=== PATIENT | male | born 1980 | race Two or more races ===

== ENCOUNTER 2019-02-15 10:43 | Inpatient (IN) | payer BC, OTHER ==
[~2019-02-15] VITALS: Ht 193 cm; Wt 159.0 kg
[2019-02-15] MEDS ORDERED: SODIUM CHLORIDE 0.9% 1,000 ML IV ONE ×2 (11:02→12:45)
[2019-02-15] MEDS ORDERED: ONDANSETRON HCL 4 MG/2 ML VIAL IV ONE (11:15)
[2019-02-15] MEDS ORDERED: InsuLIN REG 1unit/0.01ml Soln (100units/ml) IV ONE (11:15)
[2019-02-15 11:42] LABS: Mean Corpuscular Hemoglobin 30.7 pg (28.0-32.0); Red Cell Distribution Width 12.8 % (11.8-14.3)
[2019-02-15 11:44] LABS: Hematocrit 53.5 % (41.0-53.0); Hemoglobin 17.4 g/dL (13.5-17.5); Mean Corpuscular Hgb Conc. 32.6 g/dL (32.0-36.0); Mean Corpuscular Volume 94.3 fL (80.0-100.0); Platelet Count (auto) 395 10^3/uL (140-450); Red Blood Cells 5.68 10^6/uL (4.5-5.90)
[2019-02-15 11:56] LABS: INR 0.95 (0.9-1.15); Partial Thromboplastin Time 30.4 sec (23.78-33.04); Prothrombin Time 10.2 sec (9.27-12.13)
[2019-02-15 12:10] LABS: Potassium 4.6 mmol/L (3.5-5.1)
[2019-02-15 12:12] LABS: Basophils % (manual) 0 (0.0-2.0); Blast Cells 0; Eosinophils % (manual) 0 (0-7); Metamyelocytes % 0; Myelocytes % 0; Promyelocytes % 0; Reactive Lymphocytes 0
[2019-02-15 12:29] LABS: Albumin 4.3 g/dL (3.4-5.0); BUN/Creatinine Ratio 8.7; Bilirubin, Total 0.4 mg/dL (0.2-1.0); Magnesium 2.6 mg/dL (1.6-2.6); Total Protein 8.8 g/dL (6.4-8.2)
[2019-02-15] MEDS ORDERED: InsuLIN R (HUMAN) 100 UNITS in SODIUM CHL 0.9% 99 ML IV SCH (12:40)
[2019-02-15] MEDS ORDERED: DEXTROSE (50%) 50ML SYRG IV PRN ×2 (12:45→14:15)
[2019-02-15 12:52] LABS: Band Neutrophils % (manual) 2; Lymphocytes % (manual) 6 (10.0-50.0); Monocytes % (manual) 3 (0-12)
[2019-02-15] MEDS ORDERED: ACCU-CHEK COMFORT CURVE STRIP VI SCH (13:30)
[2019-02-15] MEDS ORDERED: SODIUM BICARBONATE 8.4 % INJ 50ML VIAL IV ONE (13:30)
[2019-02-15] MEDS: SODIUM CHLORIDE 0.9% 1,000 ML IV SCH ×3 (14:02→23:39)
[2019-02-15 14:13] LABS: Urine Bacteria NONE SEEN /hpf (None Seen); Urine Blood 2+ /uL (Negative); Urine WBC 1 /hpf (0 - 3)
[2019-02-15] MEDS ORDERED: MORPHINE SULF INJ 2 MG/ML SYRINGE 1ML IV PRN (14:15)
[2019-02-15] MEDS ORDERED: NITROGLYCERIN 0.4 MG SL TAB SL PRN (14:15)
[2019-02-15] MEDS ORDERED: TEMAZEPAM 15 MG CAP PO PRN (14:15)
[2019-02-15] MEDS ORDERED: LORazepam 0.5 MG TAB PO PRN (14:15)
[2019-02-15] MEDS: InsuLIN R (HUMAN) 100 UNITS in SODIUM CHL 0.9% 99 ML IV SCH ×2 (14:21→22:20)
[2019-02-15 15:06] LABS: Amylase 46 U/L (25-115); Lipase 654 U/L (73-393)
[2019-02-15] MEDS: ACCU-CHEK COMFORT CURVE STRIP VI SCH ×7 (16:01→23:40)
[2019-02-15] MEDS ORDERED: SODIUM CHLORIDE 0.9% 1,000 ML IV SCH (18:02)
[2019-02-15 18:44] LABS: Albumin 3.4 g/dL (3.4-5.0); BUN/Creatinine Ratio 8.5; Calcium 7.3 mg/dL (8.5-10.1); Potassium 4.4 mmol/L (3.5-5.1)
[2019-02-15 18:47] LABS: Bilirubin, Total 0.4 mg/dL (0.2-1.0); Total Protein 7.2 g/dL (6.4-8.2)
[2019-02-15 23:02] LABS: BUN/Creatinine Ratio 8.9; Calcium 7.3 mg/dL (8.5-10.1); Potassium 4.1 mmol/L (3.5-5.1)
[2019-02-16] VITALS (23 sets, daily range): BP systolic 121–167; BP diastolic 61–97
[2019-02-16] MEDS ORDERED: SODIUM BICARBONATE 8.4 % INJ 50ML VIAL IV ONE ×3 (00:15→04:15)
[2019-02-16] MEDS: PROMETHAZINE HCL 25 MG/ML 1ML IV PRN (00:25)
[2019-02-16] MEDS ORDERED: SODIUM BICARBONATE 50ML VIAL 50 ML in SOD CHL 0.45% 1,000 ML IV SCH (01:00)
[2019-02-16] MEDS: ACCU-CHEK COMFORT CURVE STRIP VI SCH ×14 (01:46→22:22)
[2019-02-16 02:30] LABS: BUN/Creatinine Ratio 7.5; Calcium 7.2 mg/dL (8.5-10.1); Potassium 3.7 mmol/L (3.5-5.1)
[2019-02-16] MEDS: SODIUM CHLORIDE 0.9% 1,000 ML IV SCH ×2 (02:55→09:22)
[2019-02-16] MEDS ORDERED: SODIUM BICARBONATE 8.4% INJ 50ML SYRINGE ONE (04:24)
[2019-02-16] MEDS: SODIUM BICARBONATE 50ML VIAL 100 ML in SOD CHL 0.45% 1,000 ML IV SCH (04:41)
[2019-02-16 08:29] LABS: Basophils # (auto) 0.1 uL; Basophils % (auto) 0.9 % (0.0-2.0); Eosinophils # (auto) 0 uL; Eosinophils % (auto) 0.3 % (0.0-7.0); Hematocrit 45.4 % (41.0-53.0); Hemoglobin 14.9 g/dL (13.5-17.5); Lymphocytes # (auto) 0.7 uL; Lymphocytes % (auto) 6.7 % (10.0-50.0); Mean Corpuscular Hemoglobin 30.9 pg (28.0-32.0); Mean Corpuscular Hgb Conc. 32.9 g/dL (32.0-36.0); Mean Corpuscular Volume 93.9 fL (80.0-100.0); Monocytes # (auto) 0.7 uL; Monocytes % (auto) 6.6 % (0.0-12.0); Neutrophils # (auto) 9.2 uL; Neutrophils % (auto) 85.5 % (37.0-80.0); Platelet Count (auto) 265 10^3/uL (140-450); Red Blood Cells 4.84 10^6/uL (4.5-5.90); Red Cell Distribution Width 12.7 % (11.8-14.3); White Blood Cell 10.8 10^3/uL (4.4-10.8)
[2019-02-16 08:52] LABS: Albumin 3.2 g/dL (3.4-5.0); BUN/Creatinine Ratio 8.6; Calcium 7.4 mg/dL (8.5-10.1); Potassium 3.5 mmol/L (3.5-5.1)
[2019-02-16 08:55] LABS: Bilirubin, Total 0.4 mg/dL (0.2-1.0); Total Protein 6.8 g/dL (6.4-8.2)
[2019-02-16] MEDS: PANTOPRAZOLE 40 MG TAB PO SCH (09:42)
[2019-02-16] MEDS: SODIUM BICARBONATE 50ML VIAL 100 ML in SODIUM CHLORIDE 0.9% 1,000 ML IV SCH ×2 (10:55→17:35)
[2019-02-16] MEDS: InsuLIN R (HUMAN) 100 UNITS in SODIUM CHL 0.9% 99 ML IV SCH (16:08)
[2019-02-17] VITALS (24 sets, daily range): BP systolic 134–173; BP diastolic 63–100
[2019-02-17] MEDS: SODIUM BICARBONATE 50ML VIAL 100 ML in SODIUM CHLORIDE 0.9% 1,000 ML IV SCH ×4 (00:55→23:57)
[2019-02-17] MEDS: PROMETHAZINE HCL 25 MG/ML 1ML IV PRN (01:04)
[2019-02-17] MEDS: ACCU-CHEK COMFORT CURVE STRIP VI SCH ×17 (01:42→23:58)
[2019-02-17 04:46] LABS: Albumin 3.2 g/dL (3.4-5.0); Calcium 7.8 mg/dL (8.5-10.1); Potassium 3.1 mmol/L (3.5-5.1)
[2019-02-17 04:51] LABS: Bilirubin, Total 0.4 mg/dL (0.2-1.0); Total Protein 6.6 g/dL (6.4-8.2)
[2019-02-17] MEDS ORDERED: InsuLIN R (HUMAN) 100 UNITS in SODIUM CHL 0.9% 99 ML IV SCH ×2 (05:02→19:33)
[2019-02-17] MEDS: InsuLIN R (HUMAN) 100 UNITS in SODIUM CHL 0.9% 99 ML IV SCH ×2 (06:23→16:34)
[2019-02-17] MEDS ORDERED: SODIUM BICARBONATE 8.4 % INJ 50ML VIAL IV ONE (06:30)
[2019-02-17] MEDS: SOD CHL 0.45% WITH 20MEQ KCL 1,000 ML IV SCH ×2 (07:38→16:04)
[2019-02-17] MEDS: PANTOPRAZOLE 40 MG TAB PO SCH (09:46)
[2019-02-17] MEDS: traMADol HCL 50 MG TAB PO PRN (15:06)
[2019-02-17 22:14] LABS: Albumin 3.2 g/dL (3.4-5.0)
[2019-02-17 22:18] LABS: Bilirubin, Total 0.5 mg/dL (0.2-1.0); Total Protein 6.7 g/dL (6.4-8.2)
[2019-02-17 22:22] LABS: Potassium 2.9 mmol/L (3.5-5.1)
[2019-02-17] MEDS ORDERED: POTASSIUM CHL 20 Meq TABLET PO ONE ×2 (22:30→23:51)
[2019-02-17 23:02] LABS: BUN/Creatinine Ratio 5.7
[2019-02-18] VITALS (24 sets, daily range): BP systolic 109–164; BP diastolic 50–112
[2019-02-18] MEDS: ACCU-CHEK COMFORT CURVE STRIP VI SCH ×10 (01:33→23:59)
[2019-02-18] MEDS: SOD CHL 0.45% WITH 20MEQ KCL 1,000 ML IV SCH ×3 (03:00→17:38)
[2019-02-18] MEDS ORDERED: InsuLIN REG 1unit/0.01ml Soln (100units/ml) ONE (03:59)
[2019-02-18 04:26] LABS: Calcium 7.5 mg/dL (8.5-10.1)
[2019-02-18] MEDS: traMADol HCL 50 MG TAB PO PRN (04:30)
[2019-02-18 04:33] LABS: Potassium 2.6 mmol/L (3.5-5.1)
[2019-02-18] MEDS ORDERED: POTASSIUM CHL 10% (20 MEQ/15ML) 15ml ORAL SOLN PO ONE (05:30)
[2019-02-18] MEDS: SODIUM BICARBONATE 50ML VIAL 100 ML in SODIUM CHLORIDE 0.9% 1,000 ML IV SCH (06:14)
[2019-02-18] MEDS: PANTOPRAZOLE 40 MG TAB PO SCH (09:11)
[2019-02-18] MEDS ORDERED: DEXTROSE (50%) 50ML SYRG IV PRN (10:15)
[2019-02-18] MEDS: InsuLIN REG 1unit/0.01ml Soln (100units/ml) SC SCH ×3 (12:00→20:08)
[2019-02-18 12:56] LABS: Calcium 8.2 mg/dL (8.5-10.1); Potassium 3.2 mmol/L (3.5-5.1)
[2019-02-18 12:58] LABS: BUN/Creatinine Ratio 3.9
[2019-02-18] MEDS ORDERED: POTASSIUM CHL 20 Meq TABLET PO ONE (13:30)
[2019-02-19] MEDS: InsuLIN REG 1unit/0.01ml Soln (100units/ml) SC SCH ×4 (00:05→12:00)
[2019-02-19] MEDS: ACCU-CHEK COMFORT CURVE STRIP VI SCH ×3 (04:08→12:00)
[2019-02-19] MEDS: SOD CHL 0.45% WITH 20MEQ KCL 1,000 ML IV SCH ×2 (04:16→12:15)
[2019-02-19 05:18] VITALS: BP 124/57
[2019-02-19 09:08] VITALS: BP 130/73
[2019-02-19] MEDS: PANTOPRAZOLE 40 MG TAB PO SCH (09:40)
[2019-02-19 13:00] VITALS: BP 132/67
== END 2019-02-19 15:11 | disposition home or self-care (01) | DRG 638 ==
LOC: ER 10:43 → EDBD 10:43 → OVERFLOW 14:05 → ICU WEST 02-16 04:50 → WEST WING 02-18 20:35
PROVIDERS: ADMIT Internal Medicine; ATTEND Family Medicine
DX: E11.10 Type 2 diabetes mellitus with ketoacidosis without coma (principal); E87.1 Hypo-osmolality and hyponatremia; Z68.41 Body mass index [BMI] 40.0-44.9, adult; E86.0 Dehydration; Z79.899 Other long term (current) drug therapy; E66.01 Morbid (severe) obesity due to excess calories; E87.6 Hypokalemia; Z82.49 Family history of ischemic heart disease and other diseases of the circulatory system; Z83.3 Family history of diabetes mellitus; Z91.19 Patient's noncompliance with other medical treatment and regimen; Z90.49 Acquired absence of other specified parts of digestive tract
CPT/HCPCS: 36415; 36600; 71045; 74176; 80048; 80053; 80320; 81001; 82010; 82150; 82805; 82962; 83036; 83690; 83735; 85007; 85025; 85027; 85610; 85730; 87081; 93005; 94761; 96361; 96365; 96375; 99291; A6257; G0378; J1815; J2405

== ENCOUNTER 2019-02-25 18:36 | Emergency (ER) | payer BC ==
[~2019-02-25] VITALS: Ht 188 cm; Wt 161.9 kg
[2019-02-25 19:06] VITALS: BP 143/93
== END 2019-02-25 23:16 | disposition home or self-care (01) ==
LOC: ER 18:40
DX: J03.90 Acute tonsillitis, unspecified (principal); E11.65 Type 2 diabetes mellitus with hyperglycemia; Z79.4 Long term (current) use of insulin; Z90.89 Acquired absence of other organs
CPT/HCPCS: 70490; 82962

== ENCOUNTER 2022-09-02 20:14 | Inpatient (IN) | payer BC ==
[~2022-09-02] VITALS: Ht 188 cm; Wt 114.6 kg
[2022-09-03] MEDS ORDERED: SODIUM CHLORIDE 0.9% 1,000 ML IV ONE (00:30)
[2022-09-03] MEDS ORDERED: ONDANSETRON HCL 4 MG/2 ML VIAL IV ONE (00:30)
[2022-09-03 01:07] LABS: Basophils # (auto) 0.1 10 ^3/uL (0-0.2); Monocytes # (auto) 0.6 10 ^3/uL (0-1.3); Neutrophils # (auto) 8.8 10 ^3/uL (1.6-8.6); Red Blood Cells 5.01 10^6/uL (4.5-5.90); Red Cell Distribution Width 12.2 % (11.8-14.3)
[2022-09-03 01:09] LABS: Basophils % (auto) 0.5 % (0.0-2.0); Eosinophils # (auto) 0.2 10 ^3/uL (0-0.8); Eosinophils % (auto) 2.1 % (0.0-7.0); Hematocrit 46.6 % (41.0-53.0); Hemoglobin 15.9 g/dL (13.5-17.5); Lymphocytes % (auto) 9.1 % (10.0-50.0); Mean Corpuscular Hemoglobin 31.7 pg (28.0-32.0); Mean Corpuscular Hgb Conc. 34.2 g/dL (32.0-36.0); Mean Corpuscular Volume 92.9 fL (80.0-100.0); Monocytes % (auto) 5.7 % (0.0-12.0); Neutrophils % (auto) 82.6 % (37.0-80.0); Nucleated Red Blood Cells % 0.1 %; White Blood Cell 10.7 10^3/uL (4.4-10.8)
[2022-09-03 01:26] LABS: Albumin 3.4 g/dL (3.4-5.0); BUN/Creatinine Ratio 13.9; Potassium 4.3 mmol/L (3.5-5.1)
[2022-09-03 01:29] LABS: Bilirubin, Total 0.5 mg/dL (0.2-1.0); Total Protein 7.9 g/dL (6.4-8.2)
[2022-09-03] MEDS ORDERED: ACETAMINOPHEN 325 MG TAB PO ONE ×2 (01:30→02:00)
[2022-09-03] MEDS ORDERED: InsuLIN REG 1unit/0.01ml Soln (100units/ml) IV ONE ×2 (01:45→02:00)
[2022-09-03] MEDS ORDERED: SODIUM CHLORIDE 0.9% 500 ML IV ONE (01:45)
[2022-09-03] MEDS ORDERED: SODIUM BICARBONATE 8.4 % INJ 50ML VIAL IV ONE ×2 (01:45→02:00)
[2022-09-03] MEDS ORDERED: DEXTROSE (50%) 50ML SYRG IV PRN (03:15)
[2022-09-03] MEDS ORDERED: DOCUSATE SOD 100 MG CAP PO PRN (03:15)
[2022-09-03] MEDS ORDERED: ONDANSETRON HCL 4 MG/2 ML VIAL IV PRN (03:15)
[2022-09-03] MEDS ORDERED: MORPHINE SULFATE INJ 2 MG/ml SYRG IV PRN (03:45)
[2022-09-03] MEDS ORDERED: NITROGLYCERIN 0.4 MG SL TAB SL PRN (03:45)
[2022-09-03 05:19] LABS: Basophils # (auto) 0.1 10 ^3/uL (0-0.2); Basophils % (auto) 0.6 % (0.0-2.0); Eosinophils # (auto) 0.1 10 ^3/uL (0-0.8); Eosinophils % (auto) 1.2 % (0.0-7.0); Hematocrit 40.5 % (41.0-53.0); Hemoglobin 13.2 g/dL (13.5-17.5); Lymphocytes # (auto) 0.9 10 ^3/uL (0.4-5.4); Mean Corpuscular Hemoglobin 29.9 pg (28.0-32.0); Mean Corpuscular Hgb Conc. 32.5 g/dL (32.0-36.0); Monocytes % (auto) 8.5 % (0.0-12.0); Neutrophils # (auto) 9.5 10 ^3/uL (1.6-8.6); Neutrophils % (auto) 81.7 % (37.0-80.0); Red Cell Distribution Width 11.9 % (11.8-14.3); White Blood Cell 11.7 10^3/uL (4.4-10.8)
[2022-09-03 05:31] LABS: Potassium 3.5 mmol/L (3.5-5.1)
[2022-09-03 05:36] LABS: Albumin 2.8 g/dL (3.4-5.0); BUN/Creatinine Ratio 13.7; Calcium 8.1 mg/dL (8.5-10.1)
[2022-09-03 05:46] LABS: Bilirubin, Total 0.4 mg/dL (0.2-1.0)
[2022-09-03] MEDS: ACCU-CHEK COMFORT CURVE STRIP VI SCH ×5 (05:50→20:17)
[2022-09-03] MEDS: InsuLIN REG 1unit/0.01ml Soln (100units/ml) SC SCH ×5 (05:58→20:18)
[2022-09-03] MEDS: SODIUM CHLORIDE 0.9% 1,000 ML IV SCH ×2 (05:59→22:33)
[2022-09-03] MEDS ORDERED: SODIUM BICARBONATE 50ML VIAL 50 ML in SOD CHL 0.45% 1,000 ML IV ONE (07:30)
[2022-09-03] MEDS: HEPARIN SODIUM (PORCINE) 5000 UNITS/ML 1ML VIAL SC SCH ×2 (10:26→22:03)
[2022-09-03] MEDS: ACETAMINOPHEN 325 MG TAB PO PRN ×2 (14:37→20:49)
[2022-09-03] MEDS: HYDROcodone-ACET 5/325MG TAB PO PRN (23:45)
[2022-09-04] MEDS: InsuLIN REG 1unit/0.01ml Soln (100units/ml) SC SCH ×7 (04:00→22:57)
[2022-09-04] MEDS: ACCU-CHEK COMFORT CURVE STRIP VI SCH ×7 (04:00→23:05)
[2022-09-04 05:00] VITALS: BP 123/65
[2022-09-04 06:33] LABS: Basophils # (auto) 0 10 ^3/uL (0-0.2); Basophils % (auto) 0.3 % (0.0-2.0); Eosinophils # (auto) 0.3 10 ^3/uL (0-0.8); Eosinophils % (auto) 2.9 % (0.0-7.0); Hematocrit 38.5 % (41.0-53.0); Lymphocytes # (auto) 0.8 10 ^3/uL (0.4-5.4); Lymphocytes % (auto) 7.7 % (10.0-50.0); Mean Corpuscular Hemoglobin 30.8 pg (28.0-32.0); Mean Corpuscular Hgb Conc. 33.8 g/dL (32.0-36.0); Mean Corpuscular Volume 90.9 fL (80.0-100.0); Monocytes # (auto) 1.2 10 ^3/uL (0-1.3); Monocytes % (auto) 11.8 % (0.0-12.0); Neutrophils # (auto) 7.9 10 ^3/uL (1.6-8.6); Neutrophils % (auto) 77.3 % (37.0-80.0); Nucleated Red Blood Cells % 0.1 %; Red Blood Cells 4.24 10^6/uL (4.5-5.90); Red Cell Distribution Width 12.3 % (11.8-14.3); White Blood Cell 10.2 10^3/uL (4.4-10.8)
[2022-09-04 06:48] LABS: Calcium 8.2 mg/dL (8.5-10.1); Potassium 3.5 mmol/L (3.5-5.1)
[2022-09-04 06:52] LABS: Albumin 2.6 g/dL (3.4-5.0); BUN/Creatinine Ratio 9.6
[2022-09-04 06:55] LABS: Bilirubin, Total 0.3 mg/dL (0.2-1.0); Total Protein 6.1 g/dL (6.4-8.2)
[2022-09-04] MEDS: HEPARIN SODIUM (PORCINE) 5000 UNITS/ML 1ML VIAL SC SCH ×2 (09:22→22:49)
[2022-09-04] MEDS: HYDROcodone-ACET 5/325MG TAB PO PRN ×3 (10:10→21:32)
[2022-09-04 13:00] VITALS: BP 125/73
[2022-09-04] MEDS: SODIUM CHLORIDE 0.9% 1,000 ML IV SCH (13:14)
[2022-09-04 17:00] VITALS: BP 121/76
[2022-09-04 22:00] VITALS: BP 118/72
[2022-09-05] MEDS: InsuLIN REG 1unit/0.01ml Soln (100units/ml) SC SCH ×3 (04:44→12:34)
[2022-09-05] MEDS: ACCU-CHEK COMFORT CURVE STRIP VI SCH ×3 (04:45→12:00)
[2022-09-05 05:00] VITALS: BP 117/79
[2022-09-05] MEDS: SODIUM CHLORIDE 0.9% 1,000 ML IV SCH (05:15)
[2022-09-05 09:00] VITALS: BP 121/71
[2022-09-05] MEDS: HEPARIN SODIUM (PORCINE) 5000 UNITS/ML 1ML VIAL SC SCH (10:27)
[2022-09-05] MEDS ORDERED: INSLANTI SC (11:11)
[2022-09-05 12:31] VITALS: BP 121/69
[2022-09-05] MEDS: ACETAMINOPHEN 325 MG TAB PO PRN (13:30)
== END 2022-09-05 15:50 | disposition home or self-care (01) | DRG 638 ==
LOC: ER 20:14 → TELE 09-03 03:36 → TELE-EAST 09-03 22:27
PROVIDERS: ADMIT Nurse Practitioner Family; ATTEND Family Medicine
DX: E11.10 Type 2 diabetes mellitus with ketoacidosis without coma (principal); E87.1 Hypo-osmolality and hyponatremia; E66.01 Morbid (severe) obesity due to excess calories; D75.839 Thrombocytosis, unspecified; Z20.822 Contact with and (suspected) exposure to COVID-19; E86.0 Dehydration; Z90.49 Acquired absence of other specified parts of digestive tract; Z79.4 Long term (current) use of insulin; Z91.14 Patient's other noncompliance with medication regimen; Z68.32 Body mass index [BMI] 32.0-32.9, adult
CPT/HCPCS: 36415; 36600; 71045; 80053; 82010; 82805; 82962; 83036; 83605; 83880; 84484; 85025; 87426; 87804; 96361; 96372; 96374; 96375; G0378; J1815; J2405

== ENCOUNTER 2022-09-08 15:49 | Inpatient (IN) | payer BC ==
[~2022-09-08] VITALS: Ht 188 cm; Wt 109.0 kg
[2022-09-08] MEDS: SODIUM CHLORIDE 0.9% 1,000 ML IV SCH ×3 (02:36→20:03)
[~2022-09-08 15:49] MED LIST: INSLANTI SC
[2022-09-08] MEDS ORDERED: SODIUM CHLORIDE 0.9% 1,000 ML IV ONE ×2 (16:00→19:00)
[2022-09-08] MEDS ORDERED: SODIUM BICARBONATE 8.4 % INJ 50ML VIAL IV ONE (16:30)
[2022-09-08 16:33] LABS: Basophils # (auto) 0 10 ^3/uL (0-0.2); Basophils % (auto) 0.2 % (0.0-2.0); Eosinophils # (auto) 0.2 10 ^3/uL (0-0.8); Hematocrit 43.4 % (41.0-53.0); Hemoglobin 15.3 g/dL (13.5-17.5); Lymphocytes # (auto) 1.2 10 ^3/uL (0.4-5.4); Lymphocytes % (auto) 7.2 % (10.0-50.0); Mean Corpuscular Hemoglobin 30.8 pg (28.0-32.0); Mean Corpuscular Hgb Conc. 35.2 g/dL (32.0-36.0); Mean Corpuscular Volume 87.4 fL (80.0-100.0); Monocytes # (auto) 1.9 10 ^3/uL (0-1.3); Monocytes % (auto) 11.4 % (0.0-12.0); Neutrophils # (auto) 13.1 10 ^3/uL (1.6-8.6); Neutrophils % (auto) 80.2 % (37.0-80.0); Red Blood Cells 4.97 10^6/uL (4.5-5.90); Red Cell Distribution Width 12.7 % (11.8-14.3); White Blood Cell 16.4 10^3/uL (4.4-10.8)
[2022-09-08 16:46] LABS: Albumin 2.3 g/dL (3.4-5.0); Calcium 8.8 mg/dL (8.5-10.1); Magnesium 1.9 mg/dL (1.6-2.6)
[2022-09-08 16:54] LABS: BUN/Creatinine Ratio 13.8; Bilirubin, Total 0.6 mg/dL (0.2-1.0); Phosphorus 1.4 mg/dL (2.5-4.90); Total Protein 6.6 g/dL (6.4-8.2)
[2022-09-08 17:01] LABS: Potassium 2.9 mmol/L (3.5-5.1)
[2022-09-08] MEDS ORDERED: DEXTROSE (50%) 50ML SYRG IV PRN ×2 (17:15→19:00)
[2022-09-08] MEDS ORDERED: INSULIN LANTUS (GLARGINE) 1 /0.01ml (100units/ml) SC ONE (17:15)
[2022-09-08] MEDS: ACCU-CHEK COMFORT CURVE STRIP VI SCH ×4 (18:37→22:36)
[2022-09-08] MEDS ORDERED: NITROGLYCERIN 0.4 MG SL TAB SL PRN (19:00)
[2022-09-08] MEDS ORDERED: MORPHINE SULFATE INJ 2 MG/ml SYRG IV PRN ×2 (19:00)
[2022-09-08] MEDS ORDERED: ONDANSETRON HCL 4 MG/2 ML VIAL IV PRN (19:00)
[2022-09-08] MEDS ORDERED: POTASSIUM PHOSPHATE 44 MEQ in D5W 5% 250 ML IV ONE (19:00)
[2022-09-08] MEDS: InsuLIN R (HUMAN) 100 UNITS in SODIUM CHL 0.9% 99 ML IV SCH (20:05)
[2022-09-08 20:26] LABS: Urine Bacteria NONE SEEN /hpf (None Seen); Urine Blood 1+ /uL (Negative); Urine Specific Gravity 1.018 (1.001-1.035); Urine WBC 1 /hpf (0 - 3)
[2022-09-08] MEDS ORDERED: SODIUM CHLORIDE 0.9% 1,000 ML IV SCH (21:15)
[2022-09-08 23:35] VITALS: BP 113/65
[2022-09-09] VITALS (24 sets, daily range): BP systolic 107–147; BP diastolic 62–88
[2022-09-09] MEDS ORDERED: ACCU-CHEK COMFORT CURVE STRIP VI SCH
[2022-09-09] MEDS ORDERED: InsuLIN REG 1unit/0.01ml Soln (100units/ml) SC SCH
[2022-09-09] MEDS: ACCU-CHEK COMFORT CURVE STRIP VI SCH ×17 (00:21→22:11)
[2022-09-09] MEDS: InsuLIN R (HUMAN) 100 UNITS in SODIUM CHL 0.9% 99 ML IV SCH ×4 (00:24→06:24)
[2022-09-09] MEDS ORDERED: METF-370 PO (02:10)
[2022-09-09] MEDS ORDERED: ENAL2.5T7 PO (02:11)
[2022-09-09] MEDS: POTASSIUM CHL 20MEQ/100ML 100 ML IV SCH ×2 (02:30→05:30)
[2022-09-09] MEDS: POTASSIUM CHL 20MEQ/100ML 200 ML IV PRN ×2 (02:51→05:46)
[2022-09-09] MEDS ORDERED: DEXTROSE (50%) 50ML SYRG IV PRN ×2 (03:15→11:30)
[2022-09-09] MEDS ORDERED: ACETAMINOPHEN 325 MG TAB PO PRN (03:30)
[2022-09-09] MEDS: ACETAMINOPHEN 325 MG TAB PO PRN ×3 (03:32→21:56)
[2022-09-09 04:49] LABS: Basophils # (auto) 0 10 ^3/uL (0-0.2); Basophils % (auto) 0.3 % (0.0-2.0); Eosinophils # (auto) 0.4 10 ^3/uL (0-0.8); Eosinophils % (auto) 3.3 % (0.0-7.0); Hematocrit 37.4 % (41.0-53.0); Hemoglobin 13.3 g/dL (13.5-17.5); Lymphocytes % (auto) 7.1 % (10.0-50.0); Mean Corpuscular Hemoglobin 30.6 pg (28.0-32.0); Mean Corpuscular Hgb Conc. 35.6 g/dL (32.0-36.0); Mean Corpuscular Volume 85.9 fL (80.0-100.0); Monocytes # (auto) 1.6 10 ^3/uL (0-1.3); Monocytes % (auto) 12.1 % (0.0-12.0); Neutrophils # (auto) 10.4 10 ^3/uL (1.6-8.6); Neutrophils % (auto) 77.2 % (37.0-80.0); Red Blood Cells 4.35 10^6/uL (4.5-5.90); Red Cell Distribution Width 12.9 % (11.8-14.3); White Blood Cell 13.5 10^3/uL (4.4-10.8)
[2022-09-09 05:09] LABS: Albumin 1.9 g/dL (3.4-5.0)
[2022-09-09 05:14] LABS: BUN/Creatinine Ratio 17.1; Bilirubin, Total 0.4 mg/dL (0.2-1.0); Calcium 7.7 mg/dL (8.5-10.1); Total Protein 5.4 g/dL (6.4-8.2)
[2022-09-09 05:27] LABS: Potassium 2.5 mmol/L (3.5-5.1)
[2022-09-09] MEDS: SODIUM CHLORIDE 0.9% 1,000 ML IV SCH (05:48)
[2022-09-09] MEDS ORDERED: INSUINJ37 SC (08:53)
[2022-09-09] MEDS ORDERED: ENAL10TA13 PO (08:54)
[2022-09-09] MEDS ORDERED: ASPI-543 PO (09:09)
[2022-09-09] MEDS: PANTOPRAZOLE 40 MG/10 ML VIAL INJ IV SCH (09:27)
[2022-09-09] MEDS ORDERED: ENOXAPARIN SOD 40 MG/0.4 ML SYRINGE SC SCH (10:00)
[2022-09-09] MEDS ORDERED: AZITHROMYCIN 500MG/ 250ML 250 ML IV ONE (11:15)
[2022-09-09] MEDS ORDERED: cefTRIAXone 1GM/50ML D5W 50 ML IV ONE (11:15)
[2022-09-09] MEDS ORDERED: POTASSIUM CHLORIDE 40 MEQ, LIDOCAINE 1% (LOCAL ANESTH.) 4 ML in SODIUM CHL 0.9% 250 ML IV ONE (11:15)
[2022-09-09] MEDS: POLYETHYLENE GLYCOL 17 GM PWDR PO SCH (12:15)
[2022-09-09] MEDS: InsuLIN REG 1unit/0.01ml Soln (100units/ml) SC SCH ×3 (12:22→21:32)
[2022-09-09] MEDS: SOD CHL 0.9%/ KCL 20MEQ 1,000 ML IV SCH (12:22)
[2022-09-09] MEDS: guaiFENesin-DM 100/10mg/5ml SYR PO PRN ×2 (12:23→17:49)
[2022-09-09] MEDS: INSULIN LANTUS (GLARGINE) 1 /0.01ml (100units/ml) SC SCH ×2 (12:23→21:32)
[2022-09-09 16:45] LABS: BUN/Creatinine Ratio 10.9; Calcium 7.6 mg/dL (8.5-10.1); Magnesium 1.7 mg/dL (1.6-2.6)
[2022-09-09 16:51] LABS: Potassium 2.5 mmol/L (3.5-5.1)
[2022-09-09] MEDS ORDERED: POTASSIUM CHL 20 Meq TABLET PO ONE (23:30)
[2022-09-10] VITALS (16 sets, daily range): BP systolic 104–146; BP diastolic 54–96
[2022-09-10] MEDS: SOD CHL 0.9%/ KCL 20MEQ 1,000 ML IV SCH (03:00)
[2022-09-10] MEDS: guaiFENesin-DM 100/10mg/5ml SYR PO PRN (04:18)
[2022-09-10 05:12] LABS: Basophils # (auto) 0.1 10 ^3/uL (0-0.2); Basophils % (auto) 0.5 % (0.0-2.0); Eosinophils # (auto) 0.7 10 ^3/uL (0-0.8); Hematocrit 41.5 % (41.0-53.0); Hemoglobin 14.3 g/dL (13.5-17.5); Lymphocytes # (auto) 1.3 10 ^3/uL (0.4-5.4); Lymphocytes % (auto) 9.1 % (10.0-50.0); Mean Corpuscular Hemoglobin 30.4 pg (28.0-32.0); Mean Corpuscular Hgb Conc. 34.5 g/dL (32.0-36.0); Mean Corpuscular Volume 87.9 fL (80.0-100.0); Monocytes # (auto) 1.6 10 ^3/uL (0-1.3); Monocytes % (auto) 11.2 % (0.0-12.0); Neutrophils # (auto) 10.8 10 ^3/uL (1.6-8.6); Neutrophils % (auto) 74.2 % (37.0-80.0); Red Blood Cells 4.72 10^6/uL (4.5-5.90); White Blood Cell 14.6 10^3/uL (4.4-10.8)
[2022-09-10 05:19] LABS: BUN/Creatinine Ratio 8.6; Calcium 8.2 mg/dL (8.5-10.1); Magnesium 1.9 mg/dL (1.6-2.6)
[2022-09-10 05:33] LABS: Potassium 2.7 mmol/L (3.5-5.1)
[2022-09-10] MEDS ORDERED: POTASSIUM CHL 20 Meq TABLET PO ONE (06:00)
[2022-09-10] MEDS: ACCU-CHEK COMFORT CURVE STRIP VI SCH ×4 (06:44→22:02)
[2022-09-10] MEDS: InsuLIN REG 1unit/0.01ml Soln (100units/ml) SC SCH ×4 (07:03→22:05)
[2022-09-10] MEDS ORDERED: POTASSIUM CHL 20MEQ/100ML 100 ML IV ONE (08:45)
[2022-09-10] MEDS: INSULIN LANTUS (GLARGINE) 1 /0.01ml (100units/ml) SC SCH ×2 (10:00→22:06)
[2022-09-10] MEDS: AZITHROMYCIN 500MG/ 250ML 250 ML IV SCH (10:01)
[2022-09-10] MEDS: cefTRIAXone 1GM/50ML D5W 50 ML IV SCH (10:01)
[2022-09-10] MEDS: PANTOPRAZOLE 40 MG/10 ML VIAL INJ IV SCH (10:02)
[2022-09-10] MEDS: ACETAMINOPHEN 325 MG TAB PO PRN ×2 (10:12→19:59)
[2022-09-10] MEDS: POLYETHYLENE GLYCOL 17 GM PWDR PO SCH (10:29)
[2022-09-10] MEDS ORDERED: POTASSIUM EFFERVESENT TAB 25 MEQ PO ONE (13:15)
[2022-09-10] MEDS: SOD CHL 0.9%/ KCL 40MEQ 1,000 ML IV SCH ×2 (16:18→23:15)
[2022-09-10] MEDS ORDERED: LACTULOSE 20Gm/30ML SOLN PO PRN (16:30)
[2022-09-10] MEDS: POTASSIUM CHL 20MEQ/100ML 100 ML IV SCH ×2 (17:13→22:01)
[2022-09-10] MEDS: ENOXAPARIN SOD 40 MG/0.4 ML SYRINGE SC SCH (22:02)
[2022-09-11 05:00] VITALS: BP 107/71
[2022-09-11] MEDS: ACETAMINOPHEN 325 MG TAB PO PRN ×3 (05:32→23:01)
[2022-09-11] MEDS: ACCU-CHEK COMFORT CURVE STRIP VI SCH ×4 (06:24→22:47)
[2022-09-11] MEDS: InsuLIN REG 1unit/0.01ml Soln (100units/ml) SC SCH ×4 (06:25→22:50)
[2022-09-11 06:45] LABS: Basophils # (auto) 0.1 10 ^3/uL (0-0.2); Basophils % (auto) 0.6 % (0.0-2.0); Eosinophils % (auto) 6.3 % (0.0-7.0); Hemoglobin 13.6 g/dL (13.5-17.5); Lymphocytes # (auto) 1.6 10 ^3/uL (0.4-5.4); Lymphocytes % (auto) 10.8 % (10.0-50.0); Mean Corpuscular Hemoglobin 30.4 pg (28.0-32.0); Mean Corpuscular Hgb Conc. 34.8 g/dL (32.0-36.0); Mean Corpuscular Volume 87.2 fL (80.0-100.0); Monocytes # (auto) 1.5 10 ^3/uL (0-1.3); Monocytes % (auto) 10.3 % (0.0-12.0); Neutrophils # (auto) 10.8 10 ^3/uL (1.6-8.6); Nucleated Red Blood Cells % 0.1 %; Red Blood Cells 4.47 10^6/uL (4.5-5.90); Red Cell Distribution Width 12.9 % (11.8-14.3)
[2022-09-11 07:04] LABS: Albumin 1.8 g/dL (3.4-5.0); Calcium 7.6 mg/dL (8.5-10.1); Potassium 3.3 mmol/L (3.5-5.1)
[2022-09-11 07:07] LABS: BUN/Creatinine Ratio 10.5; Bilirubin, Total 0.5 mg/dL (0.2-1.0); Total Protein 5.7 g/dL (6.4-8.2)
[2022-09-11 09:00] VITALS: BP 107/56
[2022-09-11] MEDS: cefTRIAXone 1GM/50ML D5W 50 ML IV SCH (09:19)
[2022-09-11] MEDS: PANTOPRAZOLE 40 MG/10 ML VIAL INJ IV SCH (09:22)
[2022-09-11] MEDS: POLYETHYLENE GLYCOL 17 GM PWDR PO SCH (09:22)
[2022-09-11] MEDS: AZITHROMYCIN 500MG/ 250ML 250 ML IV SCH (09:26)
[2022-09-11] MEDS: INSULIN LANTUS (GLARGINE) 1 /0.01ml (100units/ml) SC SCH ×2 (09:36→22:50)
[2022-09-11] MEDS ORDERED: VANCOMYCIN 1GM/250ML 250 ML IV ONE ×2 (11:30→13:00)
[2022-09-11] MEDS ORDERED: VANCOMYCIN PER PHARMACY 0 MG IV SCH (11:30)
[2022-09-11 12:30] VITALS: BP 119/71
[2022-09-11] MEDS: SOD CHL 0.9%/ KCL 40MEQ 1,000 ML IV SCH ×2 (14:45→21:18)
[2022-09-11] MEDS: guaiFENesin-DM 100/10mg/5ml SYR PO PRN (16:30)
[2022-09-11 17:00] VITALS: BP_SYST 105; BP_SYST 95; BP_DIAS 106; BP_DIAS 57
[2022-09-11] MEDS: VANCOMYCIN 1GM/250ML 250 ML IV SCH (21:02)
[2022-09-11 22:00] VITALS: BP 113/71
[2022-09-11] MEDS: ENOXAPARIN SOD 40 MG/0.4 ML SYRINGE SC SCH (22:51)
[2022-09-12] MEDS: SOD CHL 0.9%/ KCL 40MEQ 1,000 ML IV SCH ×2 (03:03→17:25)
[2022-09-12 05:00] VITALS: BP 104/64
[2022-09-12] MEDS: VANCOMYCIN 1GM/250ML 250 ML IV SCH ×3 (05:09→20:00)
[2022-09-12] MEDS: ACCU-CHEK COMFORT CURVE STRIP VI SCH ×4 (06:35→21:53)
[2022-09-12] MEDS: InsuLIN REG 1unit/0.01ml Soln (100units/ml) SC SCH ×4 (06:37→21:56)
[2022-09-12 08:00] VITALS: BP 107/77
[2022-09-12] MEDS: POLYETHYLENE GLYCOL 17 GM PWDR PO SCH (09:45)
[2022-09-12] MEDS: cefTRIAXone 1GM/50ML D5W 50 ML IV SCH (09:45)
[2022-09-12] MEDS: AZITHROMYCIN 500MG/ 250ML 250 ML IV SCH (09:45)
[2022-09-12] MEDS: INSULIN LANTUS (GLARGINE) 1 /0.01ml (100units/ml) SC SCH ×2 (10:04→21:55)
[2022-09-12] MEDS: ACETAMINOPHEN 325 MG TAB PO PRN ×2 (10:05→17:14)
[2022-09-12] MEDS ORDERED: levoFLOXacin 750MG 150 ML IV ONE (11:30)
[2022-09-12] MEDS: guaiFENesin-DM 100/10mg/5ml SYR PO PRN (11:56)
[2022-09-12 12:00] VITALS: BP 99/58
[2022-09-12] MEDS ORDERED: IPRATROPIUM BROM 0.5 MG/2.5ML INH SOL ONE (12:13)
[2022-09-12] MEDS ORDERED: ALBUTEROL SULF 2.5 MG/0.5ML(0.5%) NEB SOLN ONE (12:13)
[2022-09-12] MEDS: ALBUTEROL SULF 2.5 MG/0.5ML(0.5%) NEB SOLN NEB SCH ×2 (12:14→19:05)
[2022-09-12] MEDS: IPRATROPIUM BROM 0.5 MG/2.5ML INH SOL NEB SCH ×2 (12:14→19:05)
[2022-09-12 16:00] VITALS: BP 98/66
[2022-09-12 21:00] VITALS: BP 98/66
[2022-09-12] MEDS: ENOXAPARIN SOD 40 MG/0.4 ML SYRINGE SC SCH (21:53)
[2022-09-13] MEDS: VANCOMYCIN 1GM/250ML 250 ML IV SCH ×4 (02:03→23:00)
[2022-09-13] MEDS: SOD CHL 0.9%/ KCL 40MEQ 1,000 ML IV SCH ×3 (04:00→21:15)
[2022-09-13 05:00] VITALS: BP 110/59
[2022-09-13 06:23] LABS: Basophils # (auto) 0.1 10 ^3/uL (0-0.2); Basophils % (auto) 0.8 % (0.0-2.0); Eosinophils # (auto) 0.8 10 ^3/uL (0-0.8); Eosinophils % (auto) 7.3 % (0.0-7.0); Hematocrit 34.5 % (41.0-53.0); Lymphocytes # (auto) 1.5 10 ^3/uL (0.4-5.4); Lymphocytes % (auto) 12.9 % (10.0-50.0); Mean Corpuscular Hemoglobin 30.5 pg (28.0-32.0); Mean Corpuscular Hgb Conc. 34.8 g/dL (32.0-36.0); Mean Corpuscular Volume 87.5 fL (80.0-100.0); Monocytes # (auto) 1.2 10 ^3/uL (0-1.3); Neutrophils # (auto) 8.1 10 ^3/uL (1.6-8.6); Red Blood Cells 3.94 10^6/uL (4.5-5.90); Red Cell Distribution Width 12.8 % (11.8-14.3); White Blood Cell 11.7 10^3/uL (4.4-10.8)
[2022-09-13] MEDS: ALBUTEROL SULF 2.5 MG/0.5ML(0.5%) NEB SOLN NEB SCH ×3 (06:28→19:13)
[2022-09-13] MEDS: IPRATROPIUM BROM 0.5 MG/2.5ML INH SOL NEB SCH ×3 (06:28→19:13)
[2022-09-13 06:29] LABS: BUN/Creatinine Ratio 10.1; Calcium 7.7 mg/dL (8.5-10.1); Magnesium 1.6 mg/dL (1.6-2.6)
[2022-09-13] MEDS: ACCU-CHEK COMFORT CURVE STRIP VI SCH ×4 (06:59→23:02)
[2022-09-13] MEDS: InsuLIN REG 1unit/0.01ml Soln (100units/ml) SC SCH ×4 (07:01→22:27)
[2022-09-13 09:00] VITALS: BP 112/73
[2022-09-13] MEDS: levoFLOXacin 750MG 150 ML IV SCH (09:36)
[2022-09-13] MEDS: POLYETHYLENE GLYCOL 17 GM PWDR PO SCH (09:36)
[2022-09-13] MEDS: guaiFENesin-DM 100/10mg/5ml SYR PO PRN (09:42)
[2022-09-13] MEDS ORDERED: POTASSIUM CHL 20 Meq TABLET PO ONE (10:45)
[2022-09-13 13:00] VITALS: BP 110/68
[2022-09-13] MEDS ORDERED: VANCOMYCIN 1GM/250ML 250 ML IV SCH (16:00)
[2022-09-13] MEDS: ACETAMINOPHEN 325 MG TAB PO PRN (16:47)
[2022-09-13 17:00] VITALS: BP 95/59
[2022-09-13 22:00] VITALS: BP 113/71
[2022-09-13] MEDS: INSULIN LANTUS (GLARGINE) 1 /0.01ml (100units/ml) SC SCH (22:29)
[2022-09-13] MEDS: ENOXAPARIN SOD 40 MG/0.4 ML SYRINGE SC SCH (23:01)
[2022-09-14] MEDS: VANCOMYCIN 1GM/250ML 250 ML IV SCH ×4 (03:54→22:05)
[2022-09-14] MEDS: ACETAMINOPHEN 325 MG TAB PO PRN (04:48)
[2022-09-14 05:27] VITALS: BP 104/59
[2022-09-14] MEDS: InsuLIN REG 1unit/0.01ml Soln (100units/ml) SC SCH ×4 (06:00→22:12)
[2022-09-14 06:32] LABS: Basophils # (auto) 0 10 ^3/uL (0-0.2); Basophils % (auto) 0.4 % (0.0-2.0); Eosinophils # (auto) 0.9 10 ^3/uL (0-0.8); Eosinophils % (auto) 8.4 % (0.0-7.0); Hematocrit 32.8 % (41.0-53.0); Hemoglobin 11.6 g/dL (13.5-17.5); Lymphocytes # (auto) 1.3 10 ^3/uL (0.4-5.4); Lymphocytes % (auto) 12.6 % (10.0-50.0); Mean Corpuscular Hemoglobin 31.4 pg (28.0-32.0); Mean Corpuscular Hgb Conc. 35.3 g/dL (32.0-36.0); Mean Corpuscular Volume 88.9 fL (80.0-100.0); Monocytes % (auto) 9.7 % (0.0-12.0); Neutrophils % (auto) 68.9 % (37.0-80.0); Red Blood Cells 3.69 10^6/uL (4.5-5.90); White Blood Cell 10.1 10^3/uL (4.4-10.8)
[2022-09-14 06:40] LABS: BUN/Creatinine Ratio 9.1; Potassium 3.1 mmol/L (3.5-5.1)
[2022-09-14] MEDS: IPRATROPIUM BROM 0.5 MG/2.5ML INH SOL NEB SCH ×3 (06:46→18:55)
[2022-09-14] MEDS: ALBUTEROL SULF 2.5 MG/0.5ML(0.5%) NEB SOLN NEB SCH ×3 (06:46→18:55)
[2022-09-14 08:30] VITALS: BP 105/61
[2022-09-14] MEDS: ACCU-CHEK COMFORT CURVE STRIP VI SCH ×4 (08:59→22:06)
[2022-09-14] MEDS: SOD CHL 0.9%/ KCL 40MEQ 1,000 ML IV SCH ×2 (09:00→17:15)
[2022-09-14] MEDS ORDERED: POTASSIUM CHL 20 Meq TABLET PO ONE ×2 (10:45→12:30)
[2022-09-14] MEDS: POLYETHYLENE GLYCOL 17 GM PWDR PO SCH (12:03)
[2022-09-14] MEDS: levoFLOXacin 750MG 150 ML IV SCH (12:03)
[2022-09-14 12:30] VITALS: BP 92/54
[2022-09-14] MEDS: FLUCONAZOLE 200MG/100ML 100 ML IV SCH ×2 (13:00→13:11)
[2022-09-14 16:30] VITALS: BP 106/69
[2022-09-14 20:00] VITALS: BP 102/67
[2022-09-14 20:45] VITALS: BP 102/67
[2022-09-14] MEDS: ENOXAPARIN SOD 40 MG/0.4 ML SYRINGE SC SCH (22:06)
[2022-09-14] MEDS: INSULIN LANTUS (GLARGINE) 1 /0.01ml (100units/ml) SC SCH (22:12)
[2022-09-15] MEDS: VANCOMYCIN 1GM/250ML 250 ML IV SCH ×4 (03:59→22:37)
[2022-09-15] MEDS: SOD CHL 0.9%/ KCL 40MEQ 1,000 ML IV SCH (03:59)
[2022-09-15 05:48] VITALS: BP 100/52
[2022-09-15] MEDS: IPRATROPIUM BROM 0.5 MG/2.5ML INH SOL NEB SCH ×3 (06:01→22:41)
[2022-09-15] MEDS: ALBUTEROL SULF 2.5 MG/0.5ML(0.5%) NEB SOLN NEB SCH ×3 (06:02→22:41)
[2022-09-15 06:11] LABS: Basophils # (auto) 0 10 ^3/uL (0-0.2); Basophils % (auto) 0.5 % (0.0-2.0); Eosinophils # (auto) 0.9 10 ^3/uL (0-0.8); Eosinophils % (auto) 9.7 % (0.0-7.0); Hemoglobin 10.8 g/dL (13.5-17.5); Lymphocytes # (auto) 1.2 10 ^3/uL (0.4-5.4); Lymphocytes % (auto) 13.1 % (10.0-50.0); Mean Corpuscular Hemoglobin 31.2 pg (28.0-32.0); Mean Corpuscular Hgb Conc. 34.7 g/dL (32.0-36.0); Mean Corpuscular Volume 90.1 fL (80.0-100.0); Monocytes % (auto) 11.1 % (0.0-12.0); Neutrophils # (auto) 6.1 10 ^3/uL (1.6-8.6); Neutrophils % (auto) 65.6 % (37.0-80.0); Red Blood Cells 3.45 10^6/uL (4.5-5.90); Red Cell Distribution Width 12.9 % (11.8-14.3); White Blood Cell 9.3 10^3/uL (4.4-10.8)
[2022-09-15 06:28] LABS: Potassium 3.6 mmol/L (3.5-5.1)
[2022-09-15] MEDS: ACCU-CHEK COMFORT CURVE STRIP VI SCH ×4 (06:30→22:33)
[2022-09-15 06:32] LABS: Albumin 1.6 g/dL (3.4-5.0); BUN/Creatinine Ratio 9.3; Calcium 7.7 mg/dL (8.5-10.1); Phosphorus 3.6 mg/dL (2.5-4.90)
[2022-09-15] MEDS: InsuLIN REG 1unit/0.01ml Soln (100units/ml) SC SCH ×4 (06:32→22:35)
[2022-09-15 09:00] VITALS: BP 111/77
[2022-09-15] MEDS: levoFLOXacin 750MG 150 ML IV SCH (11:55)
[2022-09-15] MEDS: FLUCONAZOLE 200MG/100ML 100 ML IV SCH (11:55)
[2022-09-15] MEDS: POLYETHYLENE GLYCOL 17 GM PWDR PO SCH (11:56)
[2022-09-15] MEDS ORDERED: POTASSIUM CHL 20 Meq TABLET PO ONE (12:30)
[2022-09-15] MEDS ORDERED: FUROSEMIDE 20 MG/2 ML VIAL IV ONE (12:30)
[2022-09-15 13:00] VITALS: BP 116/79
[2022-09-15 17:00] VITALS: BP 116/69
[2022-09-15 19:07] VITALS: BP 114/74
[2022-09-15 22:00] VITALS: BP 114/74
[2022-09-15] MEDS: ENOXAPARIN SOD 40 MG/0.4 ML SYRINGE SC SCH (22:32)
[2022-09-15] MEDS: INSULIN LANTUS (GLARGINE) 1 /0.01ml (100units/ml) SC SCH (22:35)
[2022-09-16] MEDS: VANCOMYCIN 1GM/250ML 250 ML IV SCH ×4 (03:49→22:56)
[2022-09-16 05:00] VITALS: BP 101/66
[2022-09-16] MEDS: ACCU-CHEK COMFORT CURVE STRIP VI SCH ×4 (06:42→21:38)
[2022-09-16] MEDS: InsuLIN REG 1unit/0.01ml Soln (100units/ml) SC SCH ×4 (06:43→21:32)
[2022-09-16] MEDS: ALBUTEROL SULF 2.5 MG/0.5ML(0.5%) NEB SOLN NEB SCH ×3 (06:53→18:53)
[2022-09-16] MEDS: IPRATROPIUM BROM 0.5 MG/2.5ML INH SOL NEB SCH ×3 (06:53→18:53)
[2022-09-16 07:32] VITALS: BP 105/66
[2022-09-16] MEDS: FLUCONAZOLE 200MG/100ML 100 ML IV SCH (08:50)
[2022-09-16] MEDS: POLYETHYLENE GLYCOL 17 GM PWDR PO SCH (08:51)
[2022-09-16] MEDS: levoFLOXacin 750MG 150 ML IV SCH (08:51)
[2022-09-16 09:00] VITALS: BP 105/66
[2022-09-16] MEDS ORDERED: NALOXONE HCL 0.4 MG/ML VIAL ONE (09:11)
[2022-09-16] MEDS ORDERED: EPINEPHrine HCL 1 MG/10 ML SYRG ONE (09:11)
[2022-09-16] MEDS ORDERED: FLUMAZENIL 0.1 MG/ML INJ 10ML MDV IV ONE (09:11)
[2022-09-16] MEDS ORDERED: GLYCOPYRROLATE 0.2 MG/ML 1ML VIAL ONE (09:12)
[2022-09-16] MEDS ORDERED: EPINEPHrine HCL 1 MG/1 ML AMP ONE (09:12)
[2022-09-16] MEDS ORDERED: MIDAZOLAM HCL 5 MG/ML-1ML VIAL ONE (09:12)
[2022-09-16] MEDS ORDERED: LIDOCAINE 2%HCL (LOCAL ANESTH.) INJ 20ML MDV ONE (09:12)
[2022-09-16] MEDS ORDERED: SODIUM CHLORIDE LOCK 30 ML ONE (09:12)
[2022-09-16] MEDS ORDERED: fentaNYL CITRATE 100 MCG/2 ML VL ONE (09:13)
[2022-09-16] MEDS ORDERED: LIDOCAINE 2% JELLY 11ml (GLYDO) ONE (09:13)
[2022-09-16] MEDS ORDERED: diphenhdrAMINE HCL 50 MG/1 ML VL ONE (09:13)
[2022-09-16] MEDS ORDERED: fentaNYL CITRATE 100 MCG/2 ML VL IV ONE ×2 (11:57→11:59)
[2022-09-16] MEDS ORDERED: MIDAZOLAM HCL 5 MG/ML-1ML VIAL IV ONE ×2 (11:57→12:00)
[2022-09-16] MEDS ORDERED: LIDOCAINE 2%HCL (LOCAL ANESTH.) INJ 20ML MDV TOP ONE ×2 (11:57→11:59)
[2022-09-16] MEDS ORDERED: MICAFUNGIN SODIUM 100 MG in SODIUM CHL 0.9% 100 ML IV ONE (12:00)
[2022-09-16 13:30] VITALS: BP 101/70
[2022-09-16 17:00] VITALS: BP 117/76
[2022-09-16] MEDS: ENOXAPARIN SOD 40 MG/0.4 ML SYRINGE SC SCH (21:37)
[2022-09-16] MEDS: INSULIN LANTUS (GLARGINE) 1 /0.01ml (100units/ml) SC SCH (21:53)
[2022-09-16] MEDS: ACETAMINOPHEN 325 MG TAB PO PRN (21:54)
[2022-09-17] MEDS: VANCOMYCIN 1GM/250ML 250 ML IV SCH ×3 (04:58→18:04)
[2022-09-17 05:00] VITALS: BP 106/61
[2022-09-17] MEDS: IPRATROPIUM BROM 0.5 MG/2.5ML INH SOL NEB SCH ×3 (06:35→18:38)
[2022-09-17] MEDS: ALBUTEROL SULF 2.5 MG/0.5ML(0.5%) NEB SOLN NEB SCH ×3 (06:35→18:38)
[2022-09-17] MEDS: InsuLIN REG 1unit/0.01ml Soln (100units/ml) SC SCH ×4 (06:39→22:12)
[2022-09-17] MEDS: ACCU-CHEK COMFORT CURVE STRIP VI SCH ×4 (06:53→22:14)
[2022-09-17 09:00] VITALS: BP 102/59
[2022-09-17] MEDS: POLYETHYLENE GLYCOL 17 GM PWDR PO SCH (10:00)
[2022-09-17] MEDS: MICAFUNGIN SODIUM 100 MG in SODIUM CHL 0.9% 100 ML IV SCH (10:00)
[2022-09-17 13:00] VITALS: BP 155/84
[2022-09-17] MEDS: levoFLOXacin 750MG 150 ML IV SCH (13:32)
[2022-09-17 16:44] VITALS: BP 104/72
[2022-09-17] MEDS: ACETAMINOPHEN 325 MG TAB PO PRN (19:38)
[2022-09-17 22:00] VITALS: BP 112/67
[2022-09-17] MEDS: ENOXAPARIN SOD 40 MG/0.4 ML SYRINGE SC SCH (22:14)
[2022-09-17] MEDS: INSULIN LANTUS (GLARGINE) 1 /0.01ml (100units/ml) SC SCH (22:15)
[2022-09-18] MEDS: VANCOMYCIN 1GM/250ML 250 ML IV SCH ×3 (02:58→18:00)
[2022-09-18 05:00] VITALS: BP 102/68
[2022-09-18] MEDS: IPRATROPIUM BROM 0.5 MG/2.5ML INH SOL NEB SCH ×3 (05:51→20:03)
[2022-09-18] MEDS: ALBUTEROL SULF 2.5 MG/0.5ML(0.5%) NEB SOLN NEB SCH ×3 (05:51→20:03)
[2022-09-18] MEDS: InsuLIN REG 1unit/0.01ml Soln (100units/ml) SC SCH ×4 (06:24→22:08)
[2022-09-18] MEDS: ACCU-CHEK COMFORT CURVE STRIP VI SCH ×4 (06:28→22:07)
[2022-09-18] MEDS: levoFLOXacin 750MG 150 ML IV SCH (08:26)
[2022-09-18 09:00] VITALS: BP 106/65
[2022-09-18] MEDS: POLYETHYLENE GLYCOL 17 GM PWDR PO SCH (09:36)
[2022-09-18] MEDS: MICAFUNGIN SODIUM 100 MG in SODIUM CHL 0.9% 100 ML IV SCH (11:17)
[2022-09-18 13:00] VITALS: BP 112/67
[2022-09-18 16:56] VITALS: BP 113/66
[2022-09-18 20:54] VITALS: BP 113/66
[2022-09-18 22:00] VITALS: BP 110/77
[2022-09-18] MEDS: INSULIN LANTUS (GLARGINE) 1 /0.01ml (100units/ml) SC SCH (22:08)
[2022-09-18] MEDS: ENOXAPARIN SOD 40 MG/0.4 ML SYRINGE SC SCH (22:08)
[2022-09-19 01:38] LABS: Potassium 3.7 mmol/L (3.5-5.1)
[2022-09-19 02:15] LABS: Albumin 1.7 g/dL (3.4-5.0); Calcium 8.4 mg/dL (8.5-10.1); Phosphorus 3.5 mg/dL (2.5-4.90)
[2022-09-19] MEDS: VANCOMYCIN 1GM/250ML 250 ML IV SCH (02:28)
[2022-09-19 04:09] LABS: BUN/Creatinine Ratio 11.1
[2022-09-19 05:00] VITALS: BP 107/68
[2022-09-19] MEDS: InsuLIN REG 1unit/0.01ml Soln (100units/ml) SC SCH ×4 (06:06→21:30)
[2022-09-19] MEDS: ACCU-CHEK COMFORT CURVE STRIP VI SCH ×4 (06:06→21:31)
[2022-09-19] MEDS: IPRATROPIUM BROM 0.5 MG/2.5ML INH SOL NEB SCH ×3 (06:15→19:05)
[2022-09-19] MEDS: ALBUTEROL SULF 2.5 MG/0.5ML(0.5%) NEB SOLN NEB SCH ×3 (06:16→19:05)
[2022-09-19] MEDS: MICAFUNGIN SODIUM 100 MG in SODIUM CHL 0.9% 100 ML IV SCH (08:36)
[2022-09-19] MEDS: levoFLOXacin 750MG 150 ML IV SCH (08:36)
[2022-09-19] MEDS: POLYETHYLENE GLYCOL 17 GM PWDR PO SCH (08:41)
[2022-09-19 09:00] VITALS: BP 108/68
[2022-09-19 13:00] VITALS: BP 109/72
[2022-09-19 17:00] VITALS: BP 112/71
[2022-09-19 20:00] VITALS: BP 115/76
[2022-09-19] MEDS: INSULIN LANTUS (GLARGINE) 1 /0.01ml (100units/ml) SC SCH (21:31)
[2022-09-19 22:00] VITALS: BP 115/76
[2022-09-20] VITALS (7 sets, daily range): BP systolic 106–120; BP diastolic 58–76
[2022-09-20] MEDS: IPRATROPIUM BROM 0.5 MG/2.5ML INH SOL NEB SCH ×3 (05:59→18:45)
[2022-09-20] MEDS: ALBUTEROL SULF 2.5 MG/0.5ML(0.5%) NEB SOLN NEB SCH ×3 (05:59→18:45)
[2022-09-20] MEDS: ACCU-CHEK COMFORT CURVE STRIP VI SCH ×4 (06:03→23:22)
[2022-09-20] MEDS: InsuLIN REG 1unit/0.01ml Soln (100units/ml) SC SCH ×4 (06:03→23:24)
[2022-09-20 06:37] LABS: Hematocrit 32.3 % (41.0-53.0); Hemoglobin 10.9 g/dL (13.5-17.5); Mean Corpuscular Hemoglobin 31.2 pg (28.0-32.0); Mean Corpuscular Hgb Conc. 33.7 g/dL (32.0-36.0); Mean Corpuscular Volume 92.6 fL (80.0-100.0); Red Blood Cells 3.48 10^6/uL (4.5-5.90); Red Cell Distribution Width 12.3 % (11.8-14.3); White Blood Cell 7.8 10^3/uL (4.4-10.8)
[2022-09-20 07:01] LABS: Basophils % (manual) 0 (0.0-2.0); Blast Cells 0; Metamyelocytes % 0; Myelocytes % 0; Promyelocytes % 0
[2022-09-20 08:52] LABS: Band Neutrophils % (manual) 2; Eosinophils % (manual) 17 (0-7); Lymphocytes % (manual) 13 (10.0-50.0); Monocytes % (manual) 5 (0-12); Reactive Lymphocytes 1
[2022-09-20] MEDS: MICAFUNGIN SODIUM 100 MG in SODIUM CHL 0.9% 100 ML IV SCH (09:39)
[2022-09-20] MEDS: levoFLOXacin 250 MG TAB PO SCH (09:39)
[2022-09-20] MEDS: POLYETHYLENE GLYCOL 17 GM PWDR PO SCH (09:50)
[2022-09-20] MEDS: ACETAMINOPHEN 325 MG TAB PO PRN (17:11)
[2022-09-20] MEDS: INSULIN LANTUS (GLARGINE) 1 /0.01ml (100units/ml) SC SCH (23:23)
[2022-09-21 05:00] VITALS: BP 102/59
[2022-09-21] MEDS: IPRATROPIUM BROM 0.5 MG/2.5ML INH SOL NEB SCH ×3 (05:49→18:56)
[2022-09-21] MEDS: ALBUTEROL SULF 2.5 MG/0.5ML(0.5%) NEB SOLN NEB SCH ×3 (05:49→18:56)
[2022-09-21] MEDS: ACCU-CHEK COMFORT CURVE STRIP VI SCH ×4 (06:57→21:54)
[2022-09-21] MEDS: InsuLIN REG 1unit/0.01ml Soln (100units/ml) SC SCH ×4 (07:05→22:01)
[2022-09-21 09:00] VITALS: BP 105/65
[2022-09-21] MEDS ORDERED: FLUCONAZOLE 100 MG TAB PO SCH (10:00)
[2022-09-21] MEDS: levoFLOXacin 250 MG TAB PO SCH (10:16)
[2022-09-21] MEDS: POLYETHYLENE GLYCOL 17 GM PWDR PO SCH (10:24)
[2022-09-21] MEDS ORDERED: VORICONAZOLE 50 MG TAB PO SCH (11:15)
[2022-09-21 13:00] VITALS: BP 106/69
[2022-09-21] MEDS ORDERED: FLUCONAZOLE 100 MG TAB PO ONE (13:15)
[2022-09-21 17:00] VITALS: BP 108/69
[2022-09-21 21:04] VITALS: BP 108/69
[2022-09-21 22:00] VITALS: BP 101/75
[2022-09-21] MEDS: INSULIN LANTUS (GLARGINE) 1 /0.01ml (100units/ml) SC SCH (22:03)
[2022-09-21] MEDS: ACETAMINOPHEN 325 MG TAB PO PRN (22:03)
[2022-09-22 05:00] VITALS: BP 104/70
[2022-09-22] MEDS: ALBUTEROL SULF 2.5 MG/0.5ML(0.5%) NEB SOLN NEB SCH ×2 (06:17→14:09)
[2022-09-22] MEDS: IPRATROPIUM BROM 0.5 MG/2.5ML INH SOL NEB SCH ×2 (06:17→14:09)
[2022-09-22] MEDS: ACCU-CHEK COMFORT CURVE STRIP VI SCH ×3 (06:21→16:50)
[2022-09-22] MEDS: InsuLIN REG 1unit/0.01ml Soln (100units/ml) SC SCH ×3 (06:30→16:51)
[2022-09-22 09:00] VITALS: BP 94/63
[2022-09-22] MEDS: ACETAMINOPHEN 325 MG TAB PO PRN (09:48)
[2022-09-22] MEDS ORDERED: FLUCONAZOLE 100 MG TAB PO SCH (10:00)
[2022-09-22] MEDS ORDERED: FLUC100T34 PO (10:28)
[2022-09-22] MEDS ORDERED: LEVO250T69 PO (10:28)
[2022-09-22] MEDS: POLYETHYLENE GLYCOL 17 GM PWDR PO SCH (10:44)
[2022-09-22] MEDS: levoFLOXacin 250 MG TAB PO SCH (10:45)
[2022-09-22 13:00] VITALS: BP 102/70
[2022-09-22 14:33] VITALS: BP 102/70
== END 2022-09-22 16:39 | disposition home or self-care (01) | DRG 871 ==
LOC: EDBD 15:49 → ER 15:49 → TELE 19:23 → DOU IN ICU 23:16 → TELE-EAST 09-10 16:59 → EAST 09-13 01:21 → TELE-EAST 09-14 15:38 → EAST 09-19 16:06
PROVIDERS: ADMIT Nurse Practitioner Family; ATTEND Internal Medicine
PROC: 0B9D8ZX Drainage of Right Middle Lung Lobe, Via Natural or Artificial Opening Endoscopic, Diagnostic (ICD-10-PCS; principal; 2022-09-16 11:50)
DX: A41.9 Sepsis, unspecified organism (principal); E11.10 Type 2 diabetes mellitus with ketoacidosis without coma; J18.9 Pneumonia, unspecified organism; J96.01 Acute respiratory failure with hypoxia; E87.1 Hypo-osmolality and hyponatremia; E44.0 Moderate protein-calorie malnutrition; B38.9 Coccidioidomycosis, unspecified; B38.2 Pulmonary coccidioidomycosis, unspecified; D72.829 Elevated white blood cell count, unspecified; E66.9 Obesity, unspecified; E83.39 Other disorders of phosphorus metabolism; E87.6 Hypokalemia; E86.0 Dehydration; Z20.822 Contact with and (suspected) exposure to COVID-19; I10 Essential (primary) hypertension; K59.00 Constipation, unspecified; Z79.4 Long term (current) use of insulin; Z90.49 Acquired absence of other specified parts of digestive tract; Z79.84 Long term (current) use of oral hypoglycemic drugs; Z83.3 Family history of diabetes mellitus; Z82.49 Family history of ischemic heart disease and other diseases of the circulatory system; Z68.30 Body mass index [BMI] 30.0-30.9, adult
CPT/HCPCS: 31624; 36415; 36600; 71045; 71046; 71250; 80048; 80053; 80069; 80202; 81001; 82010; 82565; 82805; 82962; 83605; 83615; 83690; 83735; 83880; 83930; 84100; 84132; 85007; 85025; 85027; 85652; 86703; 87040; 87070; 87081; 87205; 87426; 87804; 94640; 96360; 96372; 99291; C9113; G0378; J0171; J0696; J1450; J1815; J1956; J2001; J2248; J2250; J3480; J7060

== ENCOUNTER 2023-04-11 15:06 | Inpatient (IN) | payer BC ==
[~2023-04-11] VITALS: Ht 188 cm; Wt 131.0 kg
[~2023-04-11 15:06] MED LIST changes: +ASPI-543 PO; +ENAL1TAB47 PO; +FLUC100T34 PO; -INSLANTI SC; +INSUINJ37 SC; +LEVO250T58 PO; +METF-370 PO
[2023-04-11] MEDS ORDERED: VANCOMYCIN 1GM/250ML 250 ML IV ONE (15:30)
[2023-04-11 16:07] LABS: Basophils # (auto) 0.1 10 ^3/uL (0-0.2); Basophils % (auto) 0.9 % (0.0-2.0); Eosinophils # (auto) 0.5 10 ^3/uL (0-0.8); Eosinophils % (auto) 6.4 % (0.0-7.0); Hematocrit 41.4 % (41.0-53.0); Lymphocytes % (auto) 25.7 % (10.0-50.0); Mean Corpuscular Hemoglobin 30.2 pg (28.0-32.0); Mean Corpuscular Hgb Conc. 33.8 g/dL (32.0-36.0); Mean Corpuscular Volume 89.3 fL (80.0-100.0); Monocytes # (auto) 0.5 10 ^3/uL (0-1.3); Monocytes % (auto) 6.3 % (0.0-12.0); Neutrophils # (auto) 4.7 10 ^3/uL (1.6-8.6); Neutrophils % (auto) 60.7 % (37.0-80.0); Red Blood Cells 4.64 10^6/uL (4.5-5.90); Red Cell Distribution Width 13.4 % (11.8-14.3); White Blood Cell 7.8 10^3/uL (4.4-10.8)
[2023-04-11 16:33] LABS: Albumin 3.8 g/dL (3.4-5.0); Calcium 8.6 mg/dL (8.5-10.1); Potassium 4.2 mmol/L (3.5-5.1)
[2023-04-11 16:38] LABS: BUN/Creatinine Ratio 12.4 (10.0-20.0); Bilirubin, Total 0.3 mg/dL (0.2-1.0); CRP High Sensitivity 0.72 mg/dL (< 0.3); Total Protein 7.5 g/dL (6.4-8.2)
[2023-04-11] MEDS ORDERED: NITROGLYCERIN 0.4 MG SL TAB SL PRN (18:45)
[2023-04-11] MEDS ORDERED: DEXTROSE (50%) 50ML SYRG IV PRN (18:45)
[2023-04-11] MEDS ORDERED: MORPHINE SULFATE INJ 2 MG/ml SYRG IV PRN (18:45)
[2023-04-11] MEDS ORDERED: GABA-1251 PO (19:00)
[2023-04-11 19:05] LABS: INR 0.98 (0.9-1.15); Partial Thromboplastin Time 31.3 sec (24.6-33.4)
[2023-04-11] MEDS: InsuLIN REG 1unit/0.01ml Soln (100units/ml) SC SCH (23:59)
[2023-04-11] MEDS: ACCU-CHEK COMFORT CURVE STRIP VI SCH (23:59)
[2023-04-12 02:12] VITALS: BP 152/95
[2023-04-12 05:00] VITALS: BP 117/74
[2023-04-12] MEDS: InsuLIN REG 1unit/0.01ml Soln (100units/ml) SC SCH ×4 (05:44→22:00)
[2023-04-12] MEDS: PIPERACILLIN-TAZOB 3.375GM 100 ML IV SCH ×4 (05:47→22:33)
[2023-04-12 06:31] LABS: Cholesterol 103 mg/dL (< 200); Triglycerides 76 mg/dL (< 150)
[2023-04-12 06:34] LABS: HDL Cholesterol 28 mg/dL (40-59); LDL Cholesterol 61 mg/dL (< 100)
[2023-04-12] MEDS: ACCU-CHEK COMFORT CURVE STRIP VI SCH ×4 (06:53→22:00)
[2023-04-12] MEDS ORDERED: ceFAZolin 1GM/50ML 100 ML IV ONE (09:04)
[2023-04-12 09:07] VITALS: BP 123/66
[2023-04-12] MEDS ORDERED: ERGOCALCIFEROL 50,000 UNIT(1.25MG) CAP PO SCH (09:15)
[2023-04-12] MEDS ORDERED: DexAMETHasone SOD PHOS 10MG/1ML VIAL INJ ONE (09:42)
[2023-04-12] MEDS ORDERED: PROPOFOL 10 MG/ML 20 ML IV ONE ×3 (09:42→10:19)
[2023-04-12] MEDS ORDERED: KETOROLAC TROMETH 30 MG/ML 1ML VIAL ONE (09:42)
[2023-04-12] MEDS ORDERED: LIDOCAINE 2% (LOCAL ANESTH.) PF 5ml SDV ONE (09:42)
[2023-04-12] MEDS ORDERED: GLYCOPYRROLATE 0.2 MG/ML 1ML VIAL ONE (09:42)
[2023-04-12] MEDS ORDERED: ONDANSETRON HCL 4 MG/2 ML VIAL ONE (09:42)
[2023-04-12] MEDS ORDERED: ceFAZolin 1GM VL ONE ×2 (09:45→10:16)
[2023-04-12] MEDS ORDERED: ROPIVACAINE 0.5% (5MG/ML) 20ML AMPULE IJ ONE (10:10)
[2023-04-12] MEDS: PANTOPRAZOLE 40 MG TAB PO SCH (11:44)
[2023-04-12] MEDS: GABAPENTIN 400 MG CAP PO SCH ×3 (11:44→22:25)
[2023-04-12] MEDS: ENALAPRIL MALEATE 10 MG TAB PO SCH (11:44)
[2023-04-12 12:39] VITALS: BP 133/73
[2023-04-12 16:29] VITALS: BP 131/80
[2023-04-12] MEDS: HYDROcodone-ACET 5/325MG TAB PO PRN (20:23)
[2023-04-12 22:00] VITALS: BP 117/82
[2023-04-13 05:00] VITALS: BP 108/60
[2023-04-13] MEDS: PIPERACILLIN-TAZOB 3.375GM 100 ML IV SCH ×2 (05:39→14:00)
[2023-04-13] MEDS: InsuLIN REG 1unit/0.01ml Soln (100units/ml) SC SCH ×2 (06:06→11:06)
[2023-04-13 06:15] LABS: Basophils # (auto) 0 10 ^3/uL (0-0.2); Basophils % (auto) 0.1 % (0.0-2.0); Eosinophils # (auto) 0 10 ^3/uL (0-0.8); Eosinophils % (auto) 0.1 % (0.0-7.0); Hematocrit 38.3 % (41.0-53.0); Hemoglobin 13.4 g/dL (13.5-17.5); Lymphocytes # (auto) 1.6 10 ^3/uL (0.4-5.4); Lymphocytes % (auto) 14.2 % (10.0-50.0); Mean Corpuscular Hemoglobin 30.8 pg (28.0-32.0); Mean Corpuscular Hgb Conc. 34.9 g/dL (32.0-36.0); Mean Corpuscular Volume 88.3 fL (80.0-100.0); Monocytes # (auto) 0.5 10 ^3/uL (0-1.3); Monocytes % (auto) 4.1 % (0.0-12.0); Neutrophils # (auto) 8.9 10 ^3/uL (1.6-8.6); Neutrophils % (auto) 81.5 % (37.0-80.0); Red Blood Cells 4.34 10^6/uL (4.5-5.90); Red Cell Distribution Width 13.1 % (11.8-14.3)
[2023-04-13 06:21] LABS: BUN/Creatinine Ratio 21.5 (10.0-20.0); Calcium 9.2 mg/dL (8.5-10.1); Potassium 4.3 mmol/L (3.5-5.1)
[2023-04-13] MEDS: ACCU-CHEK COMFORT CURVE STRIP VI SCH ×2 (06:38→11:07)
[2023-04-13 09:00] VITALS: BP 132/87
[2023-04-13] MEDS: GABAPENTIN 400 MG CAP PO SCH (09:31)
[2023-04-13] MEDS: ENALAPRIL MALEATE 10 MG TAB PO SCH (09:31)
[2023-04-13] MEDS: PANTOPRAZOLE 40 MG TAB PO SCH (09:31)
[2023-04-13] MEDS: HYDROcodone-ACET 5/325MG TAB PO PRN (10:21)
[2023-04-13] MEDS ORDERED: TRAM50TA2 PO (12:14)
[2023-04-13] MEDS ORDERED: DOXY-346 PO (12:14)
[2023-04-13 12:30] VITALS: BP 126/76
[2023-04-13 12:46] VITALS: BP 126/76
== END 2023-04-13 13:40 | disposition home or self-care (01) | DRG 571 ==
LOC: ER 15:06 → OVERFLOW 18:32 → WEST WING 23:41
PROVIDERS: ADMIT Internal Medicine; ATTEND Internal Medicine
PROC: 0JBQ0ZZ Excision of Right Foot Subcutaneous Tissue and Fascia, Open Approach (ICD-10-PCS; principal; 2023-04-12 09:57)
DX: L03.115 Cellulitis of right lower limb (principal); L02.611 Cutaneous abscess of right foot; E11.621 Type 2 diabetes mellitus with foot ulcer; L97.509 Non-pressure chronic ulcer of other part of unspecified foot with unspecified severity; E11.40 Type 2 diabetes mellitus with diabetic neuropathy, unspecified; I10 Essential (primary) hypertension; E11.42 Type 2 diabetes mellitus with diabetic polyneuropathy; Z82.49 Family history of ischemic heart disease and other diseases of the circulatory system; Z83.3 Family history of diabetes mellitus
CPT/HCPCS: 36415; 73701; 80048; 80053; 80061; 82043; 82306; 82962; 83036; 83605; 84443; 85025; 85610; 85652; 85730; 86141; 87040; 87070; 87075; 87205; 93970; 96365; G0378; J0690; J1100; J1815; J1885; J2001; J2405; J2543; J2704

== ENCOUNTER 2025-02-24 14:49 | Inpatient (IN) | payer BC ==
[~2025-02-24] VITALS: Ht 188 cm; Wt 126.0 kg
[~2025-02-24 14:49] MED LIST changes: +DOXY-346 PO; +GABA-1251 PO; +TRAM50TA2 PO
--- NOTE | 2025-02-24 15:07 | ED.PDOC ---
History of Present Illness(SKN HPI Comments 44 y.o male with PMHx of DM, presents to the ED for an evaluation of an ulcer to the right powell x 1 week associated with new onset 2 day history of lightheadedness and generalized weakness. Patient reports wound is not draining nor bleeding but has not improved. Patient also mentions uncontrolled blood glu cose readings at home, despite compliance to Metformin medication. Patient now presents tachycardiac and with a temperature of 100.7 F. He denies any sweats, chills, numbness to the powell region, pain, chest pain, SOB. Time Seen by MD: 15:00 Primary Care Provider: JORDAN History of Present Illness: Nurses Notes, Medications, Allergies Allergies: Coded Allergies: NO KNOWN ALLERGIES (Unverified , 02/15/19) Home Meds Active Scripts Tramadol Hcl (Tramadol Hcl) 50 Mg Tab, 50 MG PO TIDP PRN for 6 Days, #18 TAB Prov:TUAN LOPEZ MD 04/13/23 Doxycycline (Monohydrate) (Doxycycline) 100 Mg Tab, 100 MG PO BID for 21 Days, #42 TAB Prov:TUAN LOPEZ MD 04/13/23 Fluconazole (Fluconazole) 100 Mg Tab, 400 MG PO DAILY for 30 Days, #120 TAB 2 Refills Prov:TUAN LOPEZ MD 09/22/22 Levofloxacin Hemihydrate (LEVOFLOXACIN) 250 Mg Tab, 500 MG PO DAILY for 10 Days, #20 TAB Prov:TUAN LOPEZ MD 09/22/22 Reported Medications Gabapentin (Gabapentin) 400 Mg Cap, 1 CAP PO BID 04/11/23 Aspirin (Aspir-Low) 81 Mg Tab, 81 MG PO DAILY, MG 09/09/22 Enalapril Maleate (Enalapril Maleate) 10 Mg Tab, 10 MG PO DAILY, TAB 09/09/22 Insulin Glargine (Lantus Solostar) 100 Unit/Ml Inj, 30 UNIT SC HS, INJ 09/09/22 Metformin Hydrochloride (Metformin Hcl) 500 Mg Tab, 1000 MG PO BID for 30 Days, MG 09/09/22 Information Source: Patient Mode of Arrival: Ambulatory Severity: Moderate Timing: Weeks (1) Duration: Since onset Location: Leg Mechanism: Spontaneous Onset Condition of Object: None Wound Type: Other History of: Diabetes Associated Signs and Symptoms: Redness, Swelling Past Medical History PAST MEDICAL HISTORY: DM Surgical History: Appendectomy Family History Family History: Reviewed,noncontributory to illness, No family hx of DM Social History Smoker: Non-Smoker Alcohol: Rarely Drugs: Denies Drug Use Lives In: Home Constitutional: reports: weakness; denies: chills, diaphoresis, fatigue, fever, malaise, sweats, others EENTM: denies: blurred vision, double vision, ear bleeding, ear discharge, ear drainage, ear pain, ear ringing, eye pain, eye redness, hearing loss, mouth pain, mouth swelling, nasal discharge, nose bleeding, nose congestion, nose pain, photophobia, tearing, throat pain, throat swelling, voice changes, others Respiratory: denies: cough, hemoptysis, orthopnea, SOB at rest, shortness of breath, SOB with excertion, stridor, wheezing, others Cardiovascular: reports: lightheadedness; denies: chest pain, dizzy spells, diaphoresis, Dyspnea on exertion, edema, irregular heart beat, left arm pain, palpitations, PND, syncope, others Gastrointestinal: denies: abdomen distended, abdominal pain, blood streaked bowels, constipated, diarrhea, dysphagia, difficulty swallowing, hematemesis, melena, nausea, poor appetite, poor fluid intake, rectal bleeding, rectal pain, vomiting, others Genitourinary: denies: burning, dysuria, flank pain, frequency, hematuria, incontinence, penile discharge, penile sore, pain, testicle pain, testicle swelling, urgency, others Neurological: denies: dizziness, fainting, headache, left sided numbness, left sided weakness, numbness, paresthesia, pre-existing deficit, right sided numbness, right sided weakness, seizure, speech problems, tingling, tremors, weakness, others Musculoskeletal: denies: back pain, gout, joint pain, joint swelling, muscle pain, muscle stiffness, neck pain, others Integumetry: reports: wounds (right powell ulceration ); denies: bruises, change in color, change in hair/nails, dryness, laceration, lesions, lumps, rash, others Allergic/Immunocompromised: denies: Difficulty Healing, Frequent Infections, Hi ves, Itching, others Hematologic/Lymphatic: denies: anemia, blood clots, easy bleeding, easy bruising, swollen glands, others Endocrine: reports: others; denies: excessive hunger, excessive sweating, excessive thirst, excessive urination, flushing, intolerance to cold, intolerance to heat, unexplained weight gain, unexplained weight loss Psychiatric: denies: anxiety, bipolar disorder, depression, hopeless, panic disorder, schizophrenia, sleepless, suicidal, others All Other Systems: Reviewed and Negative Physical Exam General Appearance: No Apparent Distress, Normal HEENT: NOT DONE Neck: Normal Inspection Respiratory: No Accessory Muscle Use, No Respiratory Distress, Normal Breath Sounds Cardiovascular: Tachycardia Breast Exam: Deferred Gastrointestinal: NOT DONE Genitalia: Deferred Pelvic: Deferred Rectal: Deferred Extremities: Normal inspection Neurologic: Alert, Normal Affect, Normal Mood Cerebellar Function: Normal Reflexes: NOT DONE Skin: Wounds (2cm ulceration of the right powell with surrounding erythema and warmth ) Lymphatic: NOT DONE Was a procedure done? Was a procedure done?: No Differential Diagnosis (INTG) Differential Diagnosis: Cellulitis, Contact Dermatitis, Erythema multiforme X-Ray, Labs, Meds, VS Vital Signs Date Time Temp Pulse Resp B/P (MAP) Pulse Ox O2 Delivery O2 Flow Rate FiO2 02/24/25 15:44 Room Air* 0 21 02/24/25 15:13 100.7 02/24/25 14:55 100.7 123 22 108/57 (74) 98 100.7 Lab Test 02/24/25 16:43 02/24/25 15:17 02/24/25 14:59 Range/Units Troponin I High Sensitivity Pending < 3 L </=54 ng/L White Blood Count 16.2 H 4.4-10.8 10^3/uL Red Blood Count 4.99 4.5-5.90 10^6/uL Hemoglobin 15.1 13.5-17.5 g/dL Hematocrit 44.9 41.0-53.0 % Mean Corpuscular Volume 90.0 80.0-100.0 fL Mean Corpuscular Hemoglobin 30.2 28.0-32.0 pg Mean Corpuscular Hemoglobin Concent 33.5 32.0-36.0 g/dL Red Cell Distribution Width 12.1 11.8-14.3 % Platelet Count 396 140-450 10^3/uL Mean Platelet Volume 7.9 6.9-10.8 fL Neutrophils (%) (Auto) 86.2 H 37.0-80.0 % Lymphocytes (%) (Auto) 5.0 L 10.0-50.0 % Monocytes (%) (Auto) 8.5 0.0-12.0 % Eosinophils (%) (Auto) 0.0 0.0-7.0 % Basophils (%) (Auto) 0.3 0.0-2.0 % Neutrophils # (Auto) 14.0 H 1.6-8.6 10 ^3/uL Lymphocytes # (Auto) 0.8 0.4-5.4 10 ^3/uL Monocytes # (Auto) 1.4 H 0-1.3 10 ^3/uL Eosinophils # (Auto) 0 0-0.8 10 ^3/uL Basophils # (Auto) 0.1 0-0.2 10 ^3/uL Nucleated Red Blood Cells 0.0 % Sodium Level 127 L 136-145 mmol/L Potassium Level 3.9 3.5-5.1 mmol/L Chloride Level 94 L 98-107 mmol/L Carbon Dioxide Level 19 L 20-31 mmol/L Anion Gap 14 5-15 Blood Urea Nitrogen 13 9-23 mg/dL Creatinine 1.02 0.700-1.30 mg/dL Glomerular Filtration Rate Calc 92 >90 mL/min BUN/Creatinine Ratio 12.7 10.0-20.0 Serum Glucose 370 H 74-106 mg/dL Lactic Acid Level 1.5 0.4-2.0 mmol/L Calcium Level 9.9 8.7-10.4 mg/dL Total Bilirubin 0.8 0.2-1.0 mg/dL Aspartate Amino Transferase (AST) < 8 L 13-40 U/L Alanine Aminotransferase (ALT) 12 7-40 U/L Alkaline Phosphatase 109 46-116 U/L Total Protein 7.6 5.7-8.2 g/dL Albumin 4.5 3.2-4.8 g/dL POC Glucose 365 H 70-106 mg/dl Current Medications Medications (Trade) Dose Ordered Sig/Nickolas Route Start Time Stop Time Status Last Admin Sodium Chloride 3,000 ml @ 1,000 mls/hr Q3H ONCE IV 02/24/25 15:00 02/24/25 17:59 02/24/25 15:34 Vancomycin HCl 200 ml @ 200 mls/hr ONCE ONCE IV 02/24/25 15:00 02/24/25 15:59 DC 02/24/25 15:33 Acetaminophen (Tylenol Tablet) 650 mg ONCE ONCE PO 02/24/25 15:00 02/24/25 15:07 DC 02/24/25 15:13 Time of 1ST Reevaluation: 15:02 Reevaluation 1ST: Unchanged Patient Education/Counseling: Diagnosis, Treatment Family Education/Counseling: No Family Present Departure 1 Departure Time of Disposition: 17:12 (Patient with concern for sepsis with fever tachycardia infectious source. Empirically cover patient with antibiotics and fluid bolus we will admit patient for further workup and expert consultation.Patient has improved after receiving fluids.) Impression: Primary Impression: Wound cellulitis Additional Impression: Sepsis Qualified Codes: A41.9 - Sepsis, unspecified organism Disposition: ADMITTED INPATIENT Admit to: Med Surg Condition: Serious Critical Care Note Critical Care Time?: Yes Critical care comment: Concern for sepsis Authorized and Performed by: Irvin Humphrey MD Total critical care time: Approximately 44 minutes Due to a high probability of clinically significant, life threatening deterioration, the patient required my highest level of preparedness to interve ne emergently and I personally spent this critical care time directly and personally managing the patient. This critical care time included obtaining a history; examining the patient; pulse oximetry; ordering and review of studies; arranging urgent treatment with development of a management plan; evaluation of patient's response to treatment; frequent reassessment; and, discussions with other providers. This critical care time was performed to assess and manage the high probability of imminent, life-threatening deterioration that could result in multi-organ failure. It was exclusive of separately billable procedures and treating other patients and teaching time. Please see my other sections and the rest of the note for further information on patient assessment and treatment. Stability Stability form required: No I personally scribed for IRVIN HUMPHREY MD ([email or web address]) on 02/24/25 at 15:07. Electronically submitted by Genie Nguyen ([facility]). IRVIN HUMPHREY MD Feb 24, 2025 15:07
[2025-02-24] MEDS: ACETAMINOPHEN 325 MG TAB PO ONE (15:13)
[2025-02-24] MEDS: VANCOMYCIN 1GM/200ML PM 200 ML IV ONE (15:33)
[2025-02-24] MEDS: SODIUM CHLORIDE 0.9% 3,000 ML IV ONE (15:34)
--- NOTE | 2025-02-24 15:52 | DVH ---
CLINICAL INDICATION: right powell infection TECHNIQUE: For XY R TIB FIB XRAY Comparison: None FINDINGS/IMPRESSION: : There is no evidence of acute fracture or dislocation. Diffuse subcutaneous soft-tissue edema and swelling.
--- NOTE | 2025-02-24 15:52 | DVH ---
CHEST RADIOGRAPH Indication: weakness Technique: Single frontal view of the chest was obtained COMPARISON: CHEST XRAY 1 VIEW on DOS: 09/21/22, CXR1 on DOS: 09/21/22, CXRP on DOS: 09/18/22, CHEST PORT ABLE on DOS: 09/18/22, CHEST PORTABLE on DOS: 09/17/22 FINDINGS: Lines and Tubes: None Lungs: Clear Pleura: No effusion. No pneumothorax. Cardiomediastinal contours: Unremarkable Bones: Unremarkable IMPRESSION: No acute disease.
[2025-02-24 15:54] LABS: Basophils # (auto) 0.1 10 ^3/uL (0-0.2); Basophils % (auto) 0.3 % (0.0-2.0); Eosinophils # (auto) 0 10 ^3/uL (0-0.8); Hematocrit 44.9 % (41.0-53.0); Hemoglobin 15.1 g/dL (13.5-17.5); Lymphocytes # (auto) 0.8 10 ^3/uL (0.4-5.4); Mean Corpuscular Hemoglobin 30.2 pg (28.0-32.0); Mean Corpuscular Hgb Conc. 33.5 g/dL (32.0-36.0); Monocytes # (auto) 1.4 10 ^3/uL (0-1.3); Monocytes % (auto) 8.5 % (0.0-12.0); Neutrophils % (auto) 86.2 % (37.0-80.0); Platelet Count (auto) 396 10^3/uL (140-450); Red Blood Cells 4.99 10^6/uL (4.5-5.90); Red Cell Distribution Width 12.1 % (11.8-14.3); White Blood Cell 16.2 10^3/uL (4.4-10.8)
[2025-02-24 16:01] LABS: Alanine Aminotransferase 12 U/L (7-40); Albumin 4.5 g/dL (3.2-4.8); Alkaline Phosphatase 109 U/L (46-116); Anion Gap 14 (5-15); BUN/Creatinine Ratio 12.7 (10.0-20.0); Bilirubin, Total 0.8 mg/dL (0.2-1.0); Blood Urea Nitrogen 13 mg/dL (9-23); Calcium 9.9 mg/dL (8.7-10.4); Potassium 3.9 mmol/L (3.5-5.1); Total Protein 7.6 g/dL (5.7-8.2)
[2025-02-24 16:03] LABS: Aspartate Aminotransferase < 8 U/L (13-40); Carbon Dioxide 19 mmol/L (20-31); Chloride 94 mmol/L (98-107); Glucose 370 mg/dL (74-106); Sodium 127 mmol/L (136-145)
[2025-02-24] MEDS: CEFEPIME 2GM/50ML NS 50 ML IV ONE (17:40)
[2025-02-24] MEDS: HYDROcodone-ACET 5/325MG TAB PO ONE (19:15)
[2025-02-24] MEDS ORDERED: VANCOMYCIN PER PHARMACY 0 MG IV SCH (22:45)
[2025-02-24] MEDS ORDERED: DEXTROSE (50%) 50ML SYRG IV PRN (22:45)
[2025-02-24] MEDS ORDERED: ACETAMINOPHEN 325 MG TAB PO PRN (22:45)
[2025-02-24] MEDS ORDERED: ONDANSETRON HCL 4 MG/2 ML VIAL IV PRN (22:45)
--- NOTE | 2025-02-24 22:54 | DVHHP2 ---
Admitting Diagnosis: Right powell pain History of Present Illness 44 y.o male with PMHx of DM, presents to the ED for an evaluation of an ulcer to the right powell x 1 week associated with new onset 2 day history of l ightheadedness and generalized weakness. Patient reports wound is not draining nor bleeding but has not improved. Patient also mentions uncontrolled blood glucose readings at home, despite compliance to Metformin medication. Patient now presents tachycardiac and with a temperature of 100.7 F. He denies any sweats, chills, numbness to the powell region, pain, chest pain, SOB. PAST MEDICAL HISTORY: DM Surgical History: Appendectomy Family History Family History: Reviewed,noncontributory to illness, No family hx of DM Social History Smoker: Non-Smoker Alcohol: Rarely Drugs: Denies Drug Use Lives In: Home Patient Family History: Diabetes mellitus G8 MOTHER G8 FATHER Hypertension G8 MOTHER G8 FATHER Allergies: Coded Allergies: NO KNOWN ALLERGIES (Unverified , 02/15/19) Home Meds Active Scripts Tramadol Hcl (Tramadol Hcl) 50 Mg Tab, 50 MG PO TIDP PRN for 6 Days, #18 TAB Prov:TUAN LOPEZ MD 04/13/23 Doxycycline (Monohydrate) (Doxycycline) 100 Mg Tab, 100 MG PO BID for 21 Days, #42 TAB Prov:TUAN LOPEZ MD 04/13/23 Fluconazole (Fluconazole) 100 Mg Tab, 400 MG PO DAILY for 30 Days, #120 TAB 2 Refills Prov:TUAN LOPEZ MD 09/22/22 Levofloxacin Hemihydrate (LEVOFLOXACIN) 250 Mg Tab, 500 MG PO DAILY for 10 Days, #20 TAB Prov:TUAN LOPEZ MD 09/22/22 Reported Medications Gabapentin (Gabapentin) 400 Mg Cap, 1 CAP PO BID 04/11/23 Aspirin (Aspir-Low) 81 Mg Tab, 81 MG PO DAILY, MG 09/09/22 Enalapril Maleate (Enalapril Maleate) 10 Mg Tab, 10 MG PO DAILY, TAB 09/09/22 Insulin Glargine (Lantus Solostar) 100 Unit/Ml Inj, 30 UNIT SC HS, INJ 09/09/22 Metformin Hydrochloride (Metformin Hcl) 500 Mg Tab, 1000 MG PO BID for 30 Days, MG 09/09/22 Current Medications Current Medications Medications (Trade) Dose Ordered Sig/Nickolas Route PRN Reason Start Time Stop Time Status Last Admin Vancomycin HCl 0 ml @ 0 mls/hr UD IV 02/24/25 22:45 UNV Piperacillin Sod/ Tazobactam Sod 100 ml @ 100 mls/hr Q6H IV 02/24/25 22:45 Sodium Chloride (Saline Lock Ns) 10 ml Q8HR IV 02/25/25 06:00 Acetaminophen (Tylenol Tablet) 650 mg Q6HP PRN PO PAIN SCALE 1-3 OR TEMP>100.4 02/24/25 22:45 Acetaminophen/ Hydrocodone Bitart ([place] 5/325MG Tab) 1 tab Q4HP PRN PO MODERATE PAIN (4-6 PAIN SCALE) 02/24/25 22:45 UNV Hydromorphone HCl (Dilaudid Injection) 0.5 mg Q4HP PRN IV SEVERE PAIN (7-10 PAIN SCALE) 02/24/25 22:45 UNV Ondansetron HCl (Zofran) 4 mg Q4HP PRN IV NAUSEA / VOMITING 02/24/25 22:45 UNV Diagnostic Test (Pha) (Accu-Chek Comfort Curve T) 1 strip ACHS 02/25/25 07:00 UNV Insulin Human Regular (InsuLIN R) HS SC 02/25/25 22:00 UNV Insulin Human Regular (InsuLIN R) AC SC 02/25/25 07:00 UNV Dextrose 50 ml UD PRN IV Blood Sugar LESS THAN 60 02/24/25 22:45 UNV Vital Signs Vital Signs Date Time Temp Pulse Resp B/P (MAP) Pulse Ox O2 Delivery O2 Flow Rate FiO2 02/24/25 18:16 99.4 105 16 114/63 (80) 95 99.4 02/24/25 15:44 Room Air* 0 21 Physical Exam Generally-44 years old male, well nourished well developed. Mild distress HEENT-atraumatic normocephalic Heart-regular rate and rhythm Lungs clear to auscultate bilaterally Abdomen soft nontender nondistended Musculoskeletal skeletal-right powell as oozing pus, indurated, tender to palpate Neuro-AO x3, no focal deficits Results Labs Test 02/24/25 18:26 02/24/25 15:17 02/24/25 14:59 Range/Units Lactic Acid Level 1.5 0.4-2.0 mmol/L Troponin I High Sensitivity < 3 L </=54 ng/L White Blood Count 16.2 H 4.4-10.8 10^3/uL Red Blood Count 4.99 4.5-5.90 10^6/uL Hemoglobin 15.1 13.5-17.5 g/dL Hematocrit 44.9 41.0-53.0 % Mean Corpuscular Volume 90.0 80.0-100.0 fL Mean Corpuscular Hemoglobin 30.2 28.0-32.0 pg Mean Corpuscular Hemoglobin Concent 33.5 32.0-36.0 g/dL Red Cell Distribution Width 12.1 11.8-14.3 % Platelet Count 396 140-450 10^3/uL Mean Platelet Volume 7.9 6.9-10.8 fL Neutrophils (%) (Auto) 86.2 H 37.0-80.0 % Lymphocytes (%) (Auto) 5.0 L 10.0-50.0 % Monocytes (%) (Auto) 8.5 0.0-12.0 % Eosinophils (%) (Auto) 0.0 0.0-7.0 % Basophils (%) (Auto) 0.3 0.0-2.0 % Neutrophils # (Auto) 14.0 H 1.6-8.6 10 ^3/uL Lymphocytes # (Auto) 0.8 0.4-5.4 10 ^3/uL Monocytes # (Auto) 1.4 H 0-1.3 10 ^3/uL Eosinophils # (Auto) 0 0-0.8 10 ^3/uL Basophils # (Auto) 0.1 0-0.2 10 ^3/uL Nucleated Red Blood Cells 0.0 % Sodium Level 127 L 136-145 mmol/L Potassium Level 3.9 3.5-5.1 mmol/L Chloride Level 94 L 98-107 mmol/L Carbon Dioxide Level 19 L 20-31 mmol/L Anion Gap 14 5-15 Blood Urea Nitrogen 13 9-23 mg/dL Creatinine 1.02 0.700-1.30 mg/dL Glomerular Filtration Rate Calc 92 >90 mL/min BUN/Creatinine Ratio 12.7 10.0-20.0 Serum Glucose 370 H 74-106 mg/dL Calcium Level 9.9 8.7-10.4 mg/dL Total Bilirubin 0.8 0.2-1.0 mg/dL Aspartate Amino Transferase (AST) < 8 L 13-40 U/L Alanine Aminotransferase (ALT) 12 7-40 U/L Alkaline Phosphatase 109 46-116 U/L Total Protein 7.6 5.7-8.2 g/dL Albumin 4.5 3.2-4.8 g/dL POC Glucose 365 H 70-106 mg/dl Primary Diagnosis Right powell cellulitis rule out abscess Plan Patient is noncompliant with the medication Vanc and Zosyn for broad-spectrum antibiotics Check blood culture, wound culture Check CRP CT lower extremity to assess for right extremity cellulitis rule out abscess Pain control IV fluids Bowel regimen Hold aspirin for possible I and D if absces Full code NPO except meds for possible I and D if there is abscess SCD for DVT prophylaxis in view of possible I and D if there is abscess Plan discussed with: Patient Date of Service: Feb 24, 2025 Billing Provider: PADMINI MCDONALD MD Common Visit Codes: [id number] INP/OBS CARE (HIGH) PADMINI MCDONALD MD Feb 24, 2025 22:54
--- NOTE | 2025-02-24 23:29 | DVH ---
Clinical statement: Evaluate for right lower extremity cellulitis rule out absce Study: CT right hip right femur without contrast. Technique: Noncontrast axial CT of the performed with coronal and sagittal reformatted images. Ordering physician: IRVIN HUMPHREY Comparison: No recent cross-sectional imaging Findings: There is loss of muscle mass involving the gluteal muscles. There is subcutaneous fluid adjacent to t he lateral aspect of the mid right femuroral muscles. IMPRESSION: 1. Severe cellulitis involving the subcutaneous soft tissue and lateral right femoral muscles
[2025-02-25] MEDS: LACTATED RINGER'S 1,000 ML IV ONE (00:45)
[2025-02-25] MEDS: SODIUM CHLORIDE 0.9% 1,000 ML IV ONE (00:45)
[2025-02-25] MEDS: PIPERACILLIN-TAZOB 3.375GM 100 ML IV SCH (00:45)
[2025-02-25] MEDS: VANCOMYCIN 1GM/200ML PM 200 ML IV ONE (00:45)
[2025-02-25] MEDS: HYDROmorphone HCL 2 MG/ML VL/or syr IV PRN (00:46)
[2025-02-25] MEDS: SODIUM CHLOR 0.9% PF (SALINE LOCK) 10ML VIAL/SYR IV SCH (06:01)
[2025-02-25] MEDS: InsuLIN REG 1unit/0.01ml Soln (100units/ml) SC SCH ×2 (06:43→23:46)
[2025-02-25] MEDS: ACCU-CHEK COMFORT CURVE STRIP VI SCH (06:43)
[2025-02-25 08:06] VITALS: PULSE 94; RESP 18; O2SAT 96
[2025-02-25 08:10] LABS: Basophils # (auto) 0 10 ^3/uL (0-0.2); Basophils % (auto) 0.2 % (0.0-2.0); Eosinophils # (auto) 0 10 ^3/uL (0-0.8); Eosinophils % (auto) 0.1 % (0.0-7.0); Hematocrit 41.8 % (41.0-53.0); Hemoglobin 14.2 g/dL (13.5-17.5); Lymphocytes % (auto) 9.7 % (10.0-50.0); Mean Corpuscular Hemoglobin 30.7 pg (28.0-32.0); Mean Corpuscular Hgb Conc. 33.9 g/dL (32.0-36.0); Mean Corpuscular Volume 90.6 fL (80.0-100.0); Monocytes # (auto) 1.4 10 ^3/uL (0-1.3); Monocytes % (auto) 12.8 % (0.0-12.0); Neutrophils # (auto) 8.3 10 ^3/uL (1.6-8.6); Neutrophils % (auto) 77.2 % (37.0-80.0); Platelet Count (auto) 350 10^3/uL (140-450); Red Blood Cells 4.61 10^6/uL (4.5-5.90); Red Cell Distribution Width 12.3 % (11.8-14.3); White Blood Cell 10.8 10^3/uL (4.4-10.8)
[2025-02-25] MEDS: HYDROcodone-ACET 5/325MG TAB PO PRN (08:11)
[2025-02-25 08:28] LABS: Albumin 4.3 g/dL (3.2-4.8); Alkaline Phosphatase 98 U/L (46-116); Anion Gap 14 (5-15); BUN/Creatinine Ratio 15.3 (10.0-20.0); Blood Urea Nitrogen 17 mg/dL (9-23); Potassium 4.1 mmol/L (3.5-5.1); Total Protein 7.4 g/dL (5.7-8.2)
[2025-02-25 08:29] LABS: Bilirubin, Total 0.7 mg/dL (0.2-1.0)
[2025-02-25 08:35] LABS: Alanine Aminotransferase < 9 U/L (7-40); Aspartate Aminotransferase < 8 U/L (13-40); Carbon Dioxide 18 mmol/L (20-31); Chloride 97 mmol/L (98-107); Glucose 362 mg/dL (74-106); Sodium 129 mmol/L (136-145)
[2025-02-25] MEDS: ENALAPRIL MALEATE 10 MG TAB PO SCH (10:00)
[2025-02-25] MEDS: GABAPENTIN 400 MG CAP PO SCH (10:05)
[2025-02-25] MEDS: INSULIN LANTUS (GLARGINE) 1 /0.01ml (100units/ml) SC SCH (10:06)
[2025-02-25] MEDS: ASPirin-EC 81 mg tab PO SCH (10:06)
--- NOTE | 2025-02-25 11:21 | DVHPNRES ---
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 Patient states that the wounds/ulcers that are located 2 cm below the kneecap started one week ago. Patient states that initially it was erythematous, indurated and very painful. Patient states that it progressively got worse converting in small vesicles and finally draining pus. Patient admits to have uncontrolled blood glucose at home despite being compliant with his medications. Upon admission, patient was tachycardic, with fever and blood pressure running in the lower side we will consistent with sepsis due to right lower extremity cellulitis. Initial labs showed a WBC of 16.2, elevated glucose levels at 370. Lactic acid was 1.5, troponins were negative. Initial right tibial ankle x-ray showed diffuse swelling edema but no fracture or dislocation. Initial chest x-ray was showing no evidence of clear consolidations and bilateral lungs look grossly clear. Patient was admitted for further assessment and management of sepsis due to right lower extremity cellulitis. Patient seen and examined at bedside. Patient is complaining of severe tenderness of the right knee and at the level of the open wounds. Bandages and gauzes were taking off and wound was examined. We could see clearly two small wounds 2-3cm below the kneecap which were draining purulent material. There is also erythema and swelling around the wounds extending to the lateral thigh just lateral to the knee. Patient states that he is not able to bear weight or straighten the leg. Patient was started on IV vancomycin and IV Zosyn. right lower extremity CT scan showed severe cellulitis involving the subcutaneous soft tissue on and lateral right femoral muscles. Patient was also started on Lantus 30 units daily and moderate sliding scale insulin. Patient denies fever/chills at this time but did reported some upon admission. Patient has no additional complaints or symptoms at this time. ROS Constitutional: Denies weight loss, fever and chills. HEENT: Denies changes in vision and hearing. Respiratory: Denies shortness of breath and cough Cardiovascular: Denies chest discomfort or palpitations GI: Denies abdominal pain, nausea, vomiting and diarrhea. : Denies dysuria and urinary frequency. Musculoskeletal: Reports severe right knee pain and inability to do flexion and extension of the right lower extremity. Denies myalgias and joint pain Skin: Reports so open wounds right below the right kneecap. Denies rash and pruritus. Neurological: Denies dizziness, headache, vision or hearing problems Objective vital signs Vital Sign Date Time Temp Pulse Resp B/P (MAP) Pulse Ox O2 Delivery O2 Flow Rate FiO2 02/25/25 10:20 95 19 126/75 02/25/25 08:06 96 Room Air* 0 21 02/25/25 08:00 97.7 97.7 Total Intake and Output 02/24/25 02/24/25 02/25/25 15:00 23:00 07:00 Intake Total 3250 ml 100 ml Balance 3250 ml 100 ml medications Current Medications Medications Dose Ordered Sig/Nickolas Route Start Time Stop Time Status Last Admin Dose Admin Vancomycin HCl 0 ml @ 0 mls/hr UD IV 02/24/25 22:45 UNV Piperacillin Sod/ Tazobactam Sod 100 ml @ 100 mls/hr Q6H IV 02/24/25 22:45 02/25/25 10:09 100 MLS/HR Sodium Chloride 10 ml Q8HR IV 02/25/25 06:00 02/25/25 06:01 10 ML Acetaminophen 650 mg Q6HP PRN PO 02/24/25 22:45 Acetaminophen/ Hydrocodone Bitart 1 tab Q4HP PRN PO 02/24/25 22:45 02/25/25 08:11 1 TAB Hydromorphone HCl 0.5 mg Q4HP PRN IV 02/24/25 22:45 02/25/25 10:20 0.5 MG Ondansetron HCl 4 mg Q4HP PRN IV 02/24/25 22:45 Diagnostic Test (Pha) 1 strip ACHS 02/25/25 07:00 02/25/25 06:43 1 STRIP Insulin Human Regular HS SC 02/25/25 22:00 Insulin Human Regular AC SC 02/25/25 07:00 02/25/25 06:43 15 UNITS Dextrose 50 ml UD PRN IV 02/24/25 22:45 Aspirin 81 mg DAILY PO 02/25/25 10:00 02/25/25 10:06 81 MG Enalapril Maleate 10 mg DAILY PO 02/25/25 10:00 Gabapentin 400 mg BID PO 02/25/25 10:00 02/25/25 10:05 400 MG Insulin Glargine 30 units HS SC 02/25/25 09:00 02/25/25 10:06 30 UNITS Examination Physical Examination General: Patient alert and oriented in person, place and time. Patient following commands. HEENT: Normocephalic, atraumatic, moist mucous membranes Respiratory/pulmonary: Clear lungs bilaterally, no associated crackles or wheezes. Cardiovascular: slightly tachycardic Normal heart sounds S1 and S2 with no associated murmurs Abdomen: Abdomen nondistended, there is no pain to palpation in any of the abdominal quadrants, no palpable masses. Extremities: Right lower extremity is erythematous and indurated at the level of the right knee and in the distal lateral right thigh. There are two open wounds 2-3 cm below the right kneecap draining purulent secretion. There is no peripheral edema present at the lower extremities. Peripheral Pulses: 3+ Radial (R). 3+ Radial (L). 3+ Dorsalis pedis (R). 3+ Dorsalis pedis(L) Skin: No rashes or pruritus, there is no sacral edema present at this time. Neurological: Intact cranial nerves with no focal neurologic deficits laboratory and microbiology Laboratory Tests 02/25/25 07:43 Test 02/25/25 07:43 Range/Units Serum Glucose 362 H 74-106 mg/dL Problem List/Assessment/Plan Problem List/Assessment/Plan Assessment/Plan Sepsis secundary to acute right lower extremity cellulitis Acute right lower extremity cellulitis with pus secreting material -right lower extremity CT scan showed severe cellulitis involving the subcutaneous soft tissue on and lateral right femoral muscles -Right tibial ankle x-ray showed diffuse swelling edema but no fracture or dislocation. -start IV Zosyn and IV vancomycin -wound culture -wound consult/wound care, daily with dressing changes daily -blood cultures were ordered Uncontrolled type 2 diabetes mellitus -ordered hemoglobin A1c which was greater than 14% -start Lantus 30 units daily -start moderate sliding scale insulin -monitor blood glucose closely Mild hyponatremia -sodium 129 -continue IV fluids NS 0.9% at 75 cc/hour -we will monitor electrolytes closely Primary hypertension -start lisinopril 10 mg daily -Monitor blood pressure Obesity grade I -consult on balanced diet, lifestyle modifications Goals of care discussed with the patient and at bedside for >25min, FULL CODE Plan discussed with Dr. Shrestha Plan discussed with: Patient, Spouse My Orders My Orders Orders - SHANICE GASPAR Procedure Category Date Status Time Insulin Lantus PHA 02/25/25 In Process (Glargine) (Lantus) 09:00 Date of Service: Feb 25, 2025 Billing Provider: OTIS SHRESTHA MD Common Visit Codes: [id number] INP/OBS CARE(HIGH) SHANICE GSAPAR Feb 25, 2025 11:21 OTIS SHRESTHA MD Feb 25, 2025 15:23
[2025-02-25] MEDS ORDERED: VANCOMYCIN 500mg/100mL 100 ML IV SCH (16:00)
[2025-02-25] MEDS: VANCOMYCIN 1GM/200ML PM 200 ML IV SCH (16:24)
[2025-02-25 16:53] VITALS: PULSE 104; PULSE 94; RESP 18; RESP 20; O2SAT 96
[2025-02-25 19:55] VITALS: PULSE 102; RESP 22; O2SAT 98
[2025-02-25 21:54] VITALS: BP 113/70; PULSE 102; TEMP 98; O2SAT 92
[2025-02-25 21:57] VITALS: BP 126/80; PULSE 103; RESP 20; TEMP 98.7; O2SAT 95
[2025-02-25] MEDS ORDERED: INSULIN LANTUS (GLARGINE) 1 /0.01ml (100units/ml) SC SCH (22:00)
[2025-02-26] VITALS (7 sets, daily range): BP systolic 95–123; BP diastolic 59–74; PULSE 75–102; RESP 18–21; TEMP 98–98.9; O2SAT 92–100
[2025-02-26] MEDS: INSULIN 70/30 1unit/0.01ml Susp (100units/ml) SC SCH ×2 (00:03→23:38)
[2025-02-26 06:31] LABS: Hematocrit 35.9 % (41.0-53.0); Hemoglobin 12.3 g/dL (13.5-17.5); Mean Corpuscular Hemoglobin 30.4 pg (28.0-32.0); Mean Corpuscular Hgb Conc. 34.1 g/dL (32.0-36.0); Mean Corpuscular Volume 89.2 fL (80.0-100.0); Platelet Count (auto) 287 10^3/uL (140-450); Red Blood Cells 4.03 10^6/uL (4.5-5.90); Red Cell Distribution Width 12.3 % (11.8-14.3); White Blood Cell 6.8 10^3/uL (4.4-10.8)
[2025-02-26 06:54] LABS: Basophils % (manual) 0 (0.0-2.0); Blast Cells 0; Metamyelocytes % 0; Myelocytes % 0; Promyelocytes % 0; Reactive Lymphocytes 0
[2025-02-26 06:59] LABS: Alkaline Phosphatase 79 U/L (46-116); Anion Gap 11 (5-15); Calcium 9.2 mg/dL (8.7-10.4); Carbon Dioxide 22 mmol/L (20-31)
[2025-02-26 07:00] LABS: BUN/Creatinine Ratio 18.5 (10.0-20.0); Blood Urea Nitrogen 15 mg/dL (9-23); Total Protein 6.2 g/dL (5.7-8.2)
[2025-02-26 07:01] LABS: Albumin 3.6 g/dL (3.2-4.8)
[2025-02-26 07:02] LABS: Bilirubin, Total 0.7 mg/dL (0.2-1.0)
[2025-02-26 07:09] LABS: Alanine Aminotransferase < 9 U/L (7-40); Aspartate Aminotransferase 9 U/L (13-40); Chloride 96 mmol/L (98-107); Glucose 246 mg/dL (74-106); Potassium 3.5 mmol/L (3.5-5.1); Sodium 129 mmol/L (136-145)
--- NOTE | 2025-02-26 08:10 | DVHINCON2 ---
Consult Note Consult Consult Note Reason for Consult: Evaluation of right knee swelling and erythema in the setting of possible infection. HPI: The patient is a 44-year-old male with a history of diabetes mellitus who presents with a one-month history of progressive redness and swelling of the right knee. Over the past several days, the erythema and swelling have extended to involve the entire right leg. The patient was recently seen and admitted through the emergency department. No fever chills reported by patient. No changes in appetite. Poor controlled DM2 patient. No cardiac or Pulm hx reported by patient. Pt does not smoke.Not on any blood thinners. Exam Findings: Significant erythema and edema involving the right lower extremity, most pronounced around the knee. Ulceration is noted over the prepatellar region and inferior to the patellar tendon area. Manipulation of the knee today revealed a large, copious discharge of serosanguinous fluid with purulent material, suggestive of underlying infectious process possibly involving the bursa or deeper joint structures. CT reviewed no bony involvement or fracture noted, Sever Cellulitis subq Assessment: Concern for septic prepatellar bursitis vs. septic arthritis. Cellulitis with possible deeper soft tissue involvement. Diabetic immunocompromised state adds to risk profile for severe infection. Plan: Surgical debridement , I&D right knee today afternoon Hospitalist to NPO patient, Obtain consent for I&D right knee this morning, GET MRI right knee STAT Pt on Abx by hospitalist at this time, Recs would be to Initiate broad-spectrum IV antibiotics (e.g., vancomycin + ceftriaxone pending ID input based on lab results). Case discussed with Dr. Oropeza who agrees with above plan Plan discussed with: Other (BEDSIDE NURSE, Dr. Monte health and physical education teacher Ortho surgeon, Hospitalist team) Visit Coding Surgery Date of Service if different f: Feb 26, 2025 Billing Provider: HERMAN MCLEAN Surgery Visit Codes: [id number] - INP CONSULT <55 MIN HERMAN MCLEAN Feb 26, 2025 08:10
[2025-02-26 08:17] LABS: Band Neutrophils % (manual) 5; Eosinophils % (manual) 1 (0-7); Large Platelets FEW; Lymphocytes % (manual) 12 (10.0-50.0); Monocytes % (manual) 17 (0-12); Platelet Estimate Adequate
--- NOTE | 2025-02-26 12:17 | DVHPNRES ---
Progress Note Date Seen: Feb 26, 2025 Resident Creating Document: SHANICE GASPAR RESIDENT Has the PT tested + for MRSA If YES, has PT been informed?: No Medical Necessity Reason Pt with a Central, PICC or Fol: No Subjective Review of Systems This is a 44-year-old male with past medical history of type 2 diabetes mellitus, 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 Patient states that the wounds/ulcers that are located 2 cm below the kneecap started one week ago. Patient states that initially it was erythematous, indurated and very painful. Patient states that it progressively got worse converting in small vesicles and finally draining pus. Patient admits to have uncontrolled blood glucose at home despite being compliant with his medications. Upon admission, patient was tachycardic, with fever and blood pressure running in the lower side we will consistent with sepsis due to right lower extremity cellulitis. Initial labs showed a WBC of 16.2, elevated glucose levels at 370. Lactic acid was 1.5, troponins were negative. Initial right tibial ankle x-ray showed diffuse swelling edema but no fracture or dislocation. Initial chest x-ray was showing no evidence of clear consolidations and bilateral lungs look grossly clear. Patient was admitted for further assessment and management of sepsis due to right lower extremity cellulitis. Patient seen and examined at bedside. We will consulted orthopedic surgeon for possible incision and drainage of the right knee wounds. Patient was placed NPO consent was obtained for incision and drainage of wounds in the right lower extremity located at the right knee. Patient will be getting I and D this afternoon. We will continue IV antibiotics vancomycin and Zosyn. Patient reports significant tender in the right knee and right lateral thigh as well. Patient denies fever/chills, chest pain, shortness of breath or any other complaints at this time. ROS Constitutional: Denies weight loss, fever and chills. HEENT: Denies changes in vision and hearing. Respiratory: Denies shortness of breath and cough Cardiovascular: Denies chest discomfort or palpitations GI: Denies abdominal pain, nausea, vomiting and diarrhea. : Denies dysuria and urinary frequency. Musculoskeletal: Reports severe tenderness below the kneecap and in the right lateral thigh. Denies myalgias and joint pain Skin: Denies rash and pruritus. Neurological: Denies dizziness, headache, vision or hearing problems Objective vital signs Vital Sign Date Time Temp Pulse Resp B/P (MAP) Pulse Ox O2 Delivery O2 Flow Rate FiO2 02/26/25 11:54 100/65 02/26/25 09:16 98.3 98 20 93 98.3 02/26/25 00:36 Room Air* 0 21 Total Intake and Output 02/25/25 02/25/25 02/26/25 15:00 23:00 07:00 Intake Total 100 ml 300 ml 1000 ml Balance 100 ml 300 ml 1000 ml medications Current Medications Medications Dose Ordered Sig/Nickolas Route Start Time Stop Time Status Last Admin Dose Admin Vancomycin HCl 0 ml @ 0 mls/hr UD IV 02/24/25 22:45 Piperacillin Sod/ Tazobactam Sod 100 ml @ 100 mls/hr Q6H IV 02/24/25 22:45 02/26/25 11:54 100 MLS/HR Sodium Chloride 10 ml Q8HR IV 02/25/25 06:00 02/26/25 06:16 10 ML Acetaminophen 650 mg Q6HP PRN PO 02/24/25 22:45 Acetaminophen/ Hydrocodone Bitart 1 tab Q4HP PRN PO 02/24/25 22:45 02/25/25 08:11 1 TAB Hydromorphone HCl 0.5 mg Q4HP PRN IV 02/24/25 22:45 02/26/25 06:42 0.5 MG Ondansetron HCl 4 mg Q4HP PRN IV 02/24/25 22:45 Diagnostic Test (Pha) 1 strip ACHS 02/25/25 07:00 02/26/25 11:31 1 STRIP Insulin Human Regular HS SC 02/25/25 22:00 02/25/25 23:46 6 UNITS Insulin Human Regular AC SC 02/25/25 07:00 02/26/25 06:15 6 UNITS Dextrose 50 ml UD PRN IV 02/24/25 22:45 Aspirin 81 mg DAILY PO 02/25/25 10:00 02/25/25 10:06 81 MG Enalapril Maleate 10 mg DAILY PO 02/25/25 10:00 02/26/25 11:54 10 MG Gabapentin 400 mg BID PO 02/25/25 10:00 02/26/25 11:54 400 MG Insulin Human Isoph/Insulin Regular 20 units BID SC 02/25/25 22:00 02/26/25 12:08 20 UNITS Vancomycin HCl 100 ml @ 200 mls/hr Q8H IV 02/25/25 16:00 Cancel Vancomycin HCl 200 ml @ 200 mls/hr Q8H IV 02/25/25 16:00 02/26/25 08:32 200 MLS/HR Examination Physical Examination General: Patient alert and oriented in person, place and time. Patient following commands. HEENT: Normocephalic, atraumatic, moist mucous membranes Respiratory/pulmonary: Clear lungs bilaterally, no associated crackles or wheezes. Cardiovascular: slightly tachycardic Normal heart sounds S1 and S2 with no associated murmurs Abdomen: Abdomen nondistended, there is no pain to palpation in any of the abdominal quadrants, no palpable masses. Extremities: Right lower extremity is erythematous and indurated at the level of the right knee and in the distal lateral right thigh. There are two open wounds 2-3 cm below the right kneecap draining purulent secretion. There is no peripheral edema present at the lower extremities. Peripheral Pulses: 3+ Radial (R). 3+ Radial (L). 3+ Dorsalis pedis (R). 3+ Dorsalis pedis(L) Skin: No rashes or pruritus, there is no sacral edema present at this time. Neurological: Intact cranial nerves with no focal neurologic deficits laboratory and microbiology Laboratory Tests 02/26/25 05:42 Test 02/26/25 05:42 Range/Units Serum Glucose 246 #H 74-106 mg/dL Microbiology Date/Time Source Procedure Growth Status 02/24/25 15:17 Blood Blood Culture - Preliminary NO GROWTH AFTER 24 HOURS OF INCUBATION. Resulted Problem List/Assessment/Plan Problem List/Assessment/Plan Assessment/Plan Sepsis secundary to acute right lower extremity cellulitis Acute right lower extremity cellulitis with pus secreting material -right lower extremity CT scan showed severe cellulitis involving the subcutaneous soft tissue on and lateral right femoral muscles -Right tibial ankle x-ray showed diffuse swelling edema but no fracture or dislocation. -Continue IV Zosyn and IV vancomycin -wound culture -wound consult/wound care, daily with dressing changes daily -blood cultures were ordered -Ortho was consulted for I&D this afternoon Uncontrolled type 2 diabetes mellitus -ordered hemoglobin A1c which was greater than 14% -Increase is 70/30 to 25units BId -start moderate sliding scale insulin -monitor blood glucose closely Mild hyponatremia -sodium 129 -we will monitor electrolytes closely Primary hypertension -Continue lisinopril 10 mg daily -Monitor blood pressure Obesity grade I -consult on balanced diet, lifestyle modifications Goals of care discussed with the patient and at bedside for >25min, FULL CODE Plan discussed with Dr. Shrestha Plan discussed with: Patient My Orders My Orders Orders - SHANICE GASPAR Procedure Category Date Status Time *Podiatry Consult CONS 02/25/25 Transmitted Fanous 13:36 Insulin 70/30 (Human) PHA 02/25/25 In Process (Humulin 70/30) 22:00 * Orthopedic Consult CONS 02/26/25 Transmitted 07:48 Npo (Nothing By DIET 02/26/25 Transmitted Mouth) Diet Breakfast Communication Order ORDERS 02/26/25 Transmitted 07:49 Obtain Consent For: ORDERS 02/26/25 Transmitted 07:50 Obtain Consent For JERRY 02/26/25 In Process Anesthesia 07:50 Date of Service: Feb 26, 2025 Billing Provider: OTIS SHRESTHA MD Common Visit Codes: [id number] INP/OBS CARE(HIGH) SHANICE GASPAR RESIDENT Feb 26, 2025 12:17 OTIS SHRESTHA MD Feb 26, 2025 14:03
[2025-02-26] MEDS ORDERED: KETAMINE 50mg/ML 10ml Vial (500mg/10ml) IV ONE (14:07)
[2025-02-26 15:38] LABS: Urine Bacteria None Seen /hpf (None Seen)
[2025-02-26] MEDS ORDERED: ONDANSETRON HCL 4 MG/2 ML VIAL ONE (15:49)
[2025-02-26] MEDS ORDERED: LIDOCAINE 2% (LOCAL ANESTH.) PF 5ml SDV ONE (15:49)
[2025-02-26] MEDS ORDERED: GLYCOPYRROLATE 0.2 MG/ML 1ML VIAL ONE (15:49)
[2025-02-26] MEDS ORDERED: PROPOFOL 10 MG/ML 20 ML IV ONE (15:49)
[2025-02-26] MEDS ORDERED: KETOROLAC TROMETH 30 MG/ML 1ML VIAL ONE (15:49)
[2025-02-26] MEDS ORDERED: DexAMETHasone SOD PHOS 10MG/1ML VIAL INJ ONE (15:49)
[2025-02-26] MEDS ORDERED: fentaNYL CITRATE 100 MCG/2 ML VL ONE (15:50)
--- NOTE | 2025-02-26 15:53 | DVHOP2 ---
Operative Report - 2 Report Details Date: 02/26/25 Preop Diagnosis: Infected right knee Postop Diagnosis: Infected right knee Surgeon: Richardson Monte MD Supervisor Powdered Sugar: Samson REVELES Anesthesiologist: Kulwant COLLAZO Anesthesia: General Consent: The patient was informed of the risks and benefits of the procedure. These incl ude but are not limited to complications of anesthesia, postoperative infection, incomplete relief of symptoms, recurrence of symptoms, damage to blood vessels, nerves and tendons, deep venous thrombosis, pulmonary embolism and possible need for repeat surgery in the future. Estimated Blood Loss: 5 cc Indications for Surgery: severe right knee infection -- bleeding infection nerve injury need for further surgery blood clots amputation all discussed in depth. I discussed that he may need an amputation in future if this does not get controlled. Name of Procedure Performed Irrigation and debridement of right knee, bursectomy Procedure Details Procedure Details: After the induction of anesthesia, time-out was carried out to verify patient, procedure to be done, and site to be operated on. The patient was cleared medically prior to surgery. The extremity was scrubbed, prepped, and draped in a sterile manner. A longitudinal prepatellar incision was made overlying the bursa. A significant amount of purlence was evacuated, and pulse lavage irrigation was used to clean out the remainder of tissue. Necrotic tissue debrided of skin and fat and bursa. Tendon was all viable. bursectomy performed. Wound irrigated with aricept and betadine. Antibiotic beads placed in wound. Wound then closed with 0-monocryl followed by florinda and nylon. The patient was placed in a fresh new knee immobilizer and brought from the operating room in stable condition. Condition Fair Disposition Still a Patient RICHARDSON MONTE MD Feb 26, 2025 15:53
[2025-02-26 15:55] LABS: Urine Blood Negative /uL (Negative); Urine Budding Yeast OCCASIONAL /hpf (None Seen); Urine Clarity Clear (Clear); Urine Color Yellow (Yellow); Urine Protein, UAD 1+ (Negative); Urine Specific Gravity 1.041 (1.001-1.035); Urine Squamous Epithelial Cell FEW /hpf (<5); Urine Urobilinogen Normal (Negative); Urine WBC 2 /HPF (0-3); Urine pH 5.5 (5.0-9.0)
[2025-02-26] MEDS: VANCOMYCIN HCL 1000 MG VL ONE (15:57)
[2025-02-26] MEDS ORDERED: PHENYLEPHRINE HCL 10 MG/ML VL ONE (16:45)
[2025-02-26] MEDS: BUPIVACAINE 0.5% MPF INJ 30ML SDV IJ ONE (16:50)
[2025-02-26] MEDS ORDERED: fentaNYL CITRATE 100 MCG/2 ML VL IV PRN (17:15)
[2025-02-26] MEDS ORDERED: HYDROmorphone HCL 2 MG/ML VL/or syr IV PRN (17:15)
[2025-02-26] MEDS ORDERED: hydrALAZINE HCL 20 MG/ML VL IV PRN (17:15)
[2025-02-26] MEDS ORDERED: ONDANSETRON HCL 4 MG/2 ML VIAL IV PRN (17:15)
[2025-02-26] MEDS ORDERED: FLUMAZENIL 0.1 MG/ML INJ 10ML MDV IV PRN (17:15)
[2025-02-26] MEDS ORDERED: oxyCODONE HCL 5MG TAB PO PRN (17:15)
[2025-02-26] MEDS ORDERED: NALOXONE HCL 0.4 MG/ML VIAL IV PRN (17:15)
[2025-02-26] MEDS ORDERED: ePHEDrine SULFATE 50 MG/ML AMP IV PRN (17:15)
[2025-02-27 01:00] VITALS: BP 130/78; PULSE 74; RESP 18; TEMP 98.1; O2SAT 98
[2025-02-27] MEDS: VANCOMYCIN 1.25GM/250ML 250 ML IV SCH (03:29)
[2025-02-27 05:00] VITALS: BP 107/64; PULSE 65; RESP 18; TEMP 97.5; O2SAT 95
[2025-02-27 07:59] LABS: Basophils # (auto) 0 10 ^3/uL (0-0.2); Basophils % (auto) 0.2 % (0.0-2.0); Eosinophils # (auto) 0 10 ^3/uL (0-0.8); Hematocrit 39.7 % (41.0-53.0); Hemoglobin 13.4 g/dL (13.5-17.5); Lymphocytes # (auto) 0.7 10 ^3/uL (0.4-5.4); Mean Corpuscular Hemoglobin 30.6 pg (28.0-32.0); Mean Corpuscular Hgb Conc. 33.7 g/dL (32.0-36.0); Mean Corpuscular Volume 90.7 fL (80.0-100.0); Monocytes # (auto) 0.5 10 ^3/uL (0-1.3); Monocytes % (auto) 7.2 % (0.0-12.0); Neutrophils # (auto) 5.8 10 ^3/uL (1.6-8.6); Neutrophils % (auto) 82.6 % (37.0-80.0); Platelet Count (auto) 345 10^3/uL (140-450); Red Blood Cells 4.38 10^6/uL (4.5-5.90); Red Cell Distribution Width 12.3 % (11.8-14.3)
[2025-02-27 08:22] LABS: Alanine Aminotransferase 16 U/L (7-40); Albumin 3.9 g/dL (3.2-4.8); Alkaline Phosphatase 99 U/L (46-116); Anion Gap 11 (5-15); BUN/Creatinine Ratio 21.5 (10.0-20.0); Blood Urea Nitrogen 17 mg/dL (9-23); Calcium 10.3 mg/dL (8.7-10.4); Carbon Dioxide 21 mmol/L (20-31); Chloride 98 mmol/L (98-107); Potassium 4.6 mmol/L (3.5-5.1); Total Protein 6.9 g/dL (5.7-8.2)
[2025-02-27 08:23] LABS: Bilirubin, Total 0.4 mg/dL (0.2-1.0)
[2025-02-27 08:25] LABS: Aspartate Aminotransferase < 8 U/L (13-40); Glucose 310 mg/dL (74-106); Sodium 130 mmol/L (136-145)
[2025-02-27 09:00] VITALS: BP 129/74; PULSE 81; RESP 17; TEMP 97.6; O2SAT 94
[2025-02-27] MEDS: INSULIN 70/30 1unit/0.01ml Susp (100units/ml) SC SCH (09:37)
--- NOTE | 2025-02-27 10:55 | DVHPNRES ---
Progress Note Date Seen: Feb 27, 2025 Resident Creating Document: SHANICE GASPAR RESIDENT Has the PT tested + for MRSA If YES, has PT been informed?: No Medical Necessity Reason Pt with a Central, PICC or Fol: No Subjective Review of Systems This is a 44-year-old male with past medical history of type 2 diabetes mellitus, 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 Patient states that the wounds/ulcers that are located 2 cm below the kneecap started one week ago. Patient states that initially it was erythematous, indurated and very painful. Patient states that it progressively got worse converting in small vesicles and finally draining pus. Patient admits to have uncontrolled blood glucose at home despite being compliant with his medications. Upon admission, patient was tachycardic, with fever and blood pressure running in the lower side we will consistent with sepsis due to right lower extremity cellulitis. Initial labs showed a WBC of 16.2, elevated glucose levels at 370. Lactic acid was 1.5, troponins were negative. Initial right tibial ankle x-ray showed diffuse swelling edema but no fracture or dislocation. Initial chest x-ray was showing no evidence of clear consolidations and bilateral lungs look grossly clear. Patient was admitted for further assessment and management of sepsis due to right lower extremity cellulitis. Patient seen and examined at bedside. Patient is status post incision and drainage of the right lower extremity wounds [id number]. Patient states that the pain has decreased compared to previous of the incision and drainage. Patient still reports mild to moderate tenderness to the right lower extremity. Preliminary wound cultures are growing beta-hemolytic group B Streptococcus we are still waiting for final official reports. For now, we will continue the patient on IV vancomycin and Zosyn. Today labs are grossly unremarkable. Patient denies fever/chills, shortness of breath, chest pain, abdominal tenderness or any other symptoms. ROS Constitutional: Denies weight loss, fever and chills. HEENT: Denies changes in vision and hearing. Respiratory: Denies shortness of breath and cough Cardiovascular: Denies chest discomfort or palpitations GI: Denies abdominal pain, nausea, vomiting and diarrhea. : Denies dysuria and urinary frequency. Musculoskeletal: Reports mild to moderate tenderness in the right lower extremity that has decreased considerably compared to admission. Denies myalgias and joint pain Skin: Denies rash and pruritus. Neurological: Denies dizziness, headache, vision or hearing problems Objective vital signs Vital Sign Date Time Temp Pulse Resp B/P (MAP) Pulse Ox O2 Delivery O2 Flow Rate FiO2 02/27/25 09:30 129/74 02/27/25 05:00 97.5 65 18 95 97.5 02/26/25 20:00 Room Air* 0 21 Total Intake and Output 02/26/25 02/26/25 02/27/25 15:00 23:00 07:00 Intake Total 300 ml 0 ml 450 ml Output Total 675 ml Balance -375 ml 0 ml 450 ml medications Current Medications Medications Dose Ordered Sig/Nickolas Route Start Time Stop Time Status Last Admin Dose Admin Vancomycin HCl 0 ml @ 0 mls/hr UD IV 02/24/25 22:45 Piperacillin Sod/ Tazobactam Sod 100 ml @ 100 mls/hr Q6H IV 02/24/25 22:45 02/27/25 09:31 100 MLS/HR Sodium Chloride 10 ml Q8HR IV 02/25/25 06:00 02/27/25 05:06 10 ML Acetaminophen 650 mg Q6HP PRN PO 02/24/25 22:45 Acetaminophen/ Hydrocodone Bitart 1 tab Q4HP PRN PO 02/24/25 22:45 02/25/25 08:11 1 TAB Hydromorphone HCl 0.5 mg Q4HP PRN IV 02/24/25 22:45 02/26/25 12:54 0.5 MG Ondansetron HCl 4 mg Q4HP PRN IV 02/24/25 22:45 Diagnostic Test (Pha) 1 strip ACHS 02/25/25 07:00 02/27/25 06:40 1 STRIP Insulin Human Regular HS SC 02/25/25 22:00 02/26/25 23:32 10 UNITS Insulin Human Regular AC SC 02/25/25 07:00 02/27/25 06:48 15 UNITS Dextrose 50 ml UD PRN IV 02/24/25 22:45 Aspirin 81 mg DAILY PO 02/25/25 10:00 02/27/25 09:30 81 MG Enalapril Maleate 10 mg DAILY PO 02/25/25 10:00 02/27/25 09:30 10 MG Gabapentin 400 mg BID PO 02/25/25 10:00 02/27/25 09:30 400 MG Vancomycin HCl 100 ml @ 200 mls/hr Q8H IV 02/25/25 16:00 Cancel Vancomycin HCl 250 ml @ 200 mls/hr Q12H IV 02/27/25 03:00 02/27/25 03:29 200 MLS/HR Oxycodone HCl 10 mg ONCE PRN PO 02/26/25 17:15 Hold Insulin Human Isoph/Insulin Regular 30 units BID SC 02/27/25 10:00 02/27/25 09:37 30 UNITS Examination Physical Examination General: Patient alert and oriented in person, place and time. Patient following commands. HEENT: Normocephalic, atraumatic, moist mucous membranes Respiratory/pulmonary: Clear lungs bilaterally, no associated crackles or wheezes. Cardiovascular: slightly tachycardic Normal heart sounds S1 and S2 with no associated murmurs Abdomen: Abdomen nondistended, there is no pain to palpation in any of the abdominal quadrants, no palpable masses. Extremities: Right lower extremity has clean gauze and bandage, status post incision and drainage yesterday. There is no peripheral edema present at the lower extremities. Peripheral Pulses: 3+ Radial (R). 3+ Radial (L). 3+ Dorsalis pedis (R). 3+ Dorsalis pedis(L) Skin: No rashes or pruritus, there is no sacral edema present at this time. Neurological: Intact cranial nerves with no focal neurologic deficits laboratory and microbiology Laboratory Tests 02/27/25 07:33 Test 02/27/25 07:33 Range/Units Serum Glucose 310 H 74-106 mg/dL Microbiology Date/Time Source Procedure Growth Status 02/25/25 16:30 Knee Right Gram Stain - Final Resulted 02/25/25 16:30 Knee Right Wound Culture - Preliminary Resulted 02/24/25 15:17 Blood Blood Culture - Preliminary NO GROWTH AFTER 48 HOURS OF INCUBATION. Resulted Problem List/Assessment/Plan Problem List/Assessment/Plan Assessment/Plan Sepsis secundary to acute right lower extremity cellulitis Acute right lower extremity cellulitis with pus secreting material -right lower extremity CT scan showed severe cellulitis involving the subcutaneous soft tissue on and lateral right femoral muscles -Right tibial ankle x-ray showed diffuse swelling edema but no fracture or dislocation. -Continue IV Zosyn and IV vancomycin -wound culture -wound consult/wound care, daily with dressing changes daily -blood cultures were ordered -incision and drainage was performed yesterday (02/26/25) in the OR by Orthopedics -preliminary wound cultures are growing beta-hemolytic group B Streptococcus, we are still pending for final official reports Uncontrolled type 2 diabetes mellitus -ordered hemoglobin A1c which was greater than 14% -Increase is 70/30 to 30units BId -start moderate sliding scale insulin -monitor blood glucose closely Mild hyponatremia -sodium 130 -we will monitor electrolytes closely Primary hypertension -Continue lisinopril 10 mg daily -Monitor blood pressure Obesity grade I -consult on balanced diet, lifestyle modifications Goals of care discussed with the patient and at bedside for >25min, FULL CODE Plan discussed with Dr. Shrestha Plan discussed with: Patient My Orders My Orders Orders - SHANICE GASPAR Procedure Category Date Status Time * Dietary Consult CONS 02/26/25 Transmitted 13:22 Insulin 70/30 (Human) PHA 02/27/25 In Process (Humulin 70/30) 10:00 Erythrocyte LAB 02/27/25 In Process Sedimentation Rate 08:37 Electrocardigram EKG 02/27/25 Logged 09:34 Date of Service: Feb 27, 2025 Billing Provider: OTIS SHRESTHA MD Common Visit Codes: [id number] INP/OBS CARE(MOD) SHANICE GASPAR RESIDENT Feb 27, 2025 10:55 OTIS SHRESTHA MD Feb 27, 2025 19:19
--- NOTE | 2025-02-27 11:11 | DVHPN2 ---
Progress Note - Dictate Date Seen: Feb 27, 2025 Has the PT tested + for MRSA If YES, has PT been informed?: No Medical Necessity Reason Pt with a Central, PICC or Fol: No Subjective Patient was lying comfortably in bed during my evaluation and reports some postoperative knee pain that is being well managed with the help of pain medication. Patient reports feeling significant improvement of his pain and swelling since surgery and reports that he was able to get up and walk with the help of physical therapy and his walker and was able to get down to the nurse's station and back to his bed with minimal difficulties. Patient is otherwise feeling well denying any other complaints or concerns during my evaluation. vital signs Vital Sign Date Time Temp Pulse Resp B/P (MAP) Pulse Ox O2 Delivery O2 Flow Rate FiO2 02/27/25 09:30 129/74 02/27/25 08:00 Room Air* 0 21 02/27/25 05:00 97.5 65 18 95 97.5 Total Intake and Output 02/26/25 02/26/25 02/27/25 15:00 23:00 07:00 Intake Total 300 ml 0 ml 450 ml Output Total 675 ml Balance -375 ml 0 ml 450 ml medications Current Medications Medications Dose Ordered Sig/Nickolas Route Start Time Stop Time Status Last Admin Dose Admin Vancomycin HCl 0 ml @ 0 mls/hr UD IV 02/24/25 22:45 Piperacillin Sod/ Tazobactam Sod 100 ml @ 100 mls/hr Q6H IV 02/24/25 22:45 02/27/25 09:31 100 MLS/HR Sodium Chloride 10 ml Q8HR IV 02/25/25 06:00 02/27/25 05:06 10 ML Acetaminophen 650 mg Q6HP PRN PO 02/24/25 22:45 Acetaminophen/ Hydrocodone Bitart 1 tab Q4HP PRN PO 02/24/25 22:45 02/25/25 08:11 1 TAB Hydromorphone HCl 0.5 mg Q4HP PRN IV 02/24/25 22:45 02/26/25 12:54 0.5 MG Ondansetron HCl 4 mg Q4HP PRN IV 02/24/25 22:45 Diagnostic Test (Pha) 1 strip ACHS 02/25/25 07:00 02/27/25 06:40 1 STRIP Insulin Human Regular HS SC 02/25/25 22:00 02/26/25 23:32 10 UNITS Insulin Human Regular AC SC 02/25/25 07:00 02/27/25 06:48 15 UNITS Dextrose 50 ml UD PRN IV 02/24/25 22:45 Aspirin 81 mg DAILY PO 02/25/25 10:00 02/27/25 09:30 81 MG Enalapril Maleate 10 mg DAILY PO 02/25/25 10:00 02/27/25 09:30 10 MG Gabapentin 400 mg BID PO 02/25/25 10:00 02/27/25 09:30 400 MG Vancomycin HCl 100 ml @ 200 mls/hr Q8H IV 02/25/25 16:00 Cancel Vancomycin HCl 250 ml @ 200 mls/hr Q12H IV 02/27/25 03:00 02/27/25 03:29 200 MLS/HR Oxycodone HCl 10 mg ONCE PRN PO 02/26/25 17:15 Hold Insulin Human Isoph/Insulin Regular 30 units BID SC 02/27/25 10:00 02/27/25 09:37 30 UNITS objective A&O x4 in no acute distress Knee range of motion grossly limited with pain on movement Dressing clean, dry, and intact No distal edema or calf tenderness to palpation Neurovascularly intact with cap refill less than 2 seconds laboratory and microbiology Laboratory Tests 02/27/25 07:33 Test 02/27/25 07:33 Range/Units Serum Glucose 310 H 74-106 mg/dL Assessment/Plan Continue current management as well as pain control and physical therapy and advised the patient to remain weight-bearing as tolerated. I advised the patient to maintain his dressings clean, dry, and intact and to change them as needed. Advised to continue with IV antibiotics and may follow up Monday at our [facility] for a wound check and for possible culture results. Patient understood and agreed. Plan discussed with: Patient, Spouse RADHA STOCK Feb 27, 2025 11:11
[2025-02-27 12:06] LABS: Erythrocyte Sedimentation Rate 66 mm/hr (0-20)
[2025-02-27 13:00] VITALS: BP 128/82; PULSE 51; RESP 18; TEMP 98.5; O2SAT 97
--- NOTE | 2025-02-27 15:19 | ECG ---
[facility] Test Date: 2025-02-26 Test Time: 13:15:49 Pat Name: MAGNO CRAMER Department: Room: 0286 B Gender: M [employer] Software Verification Engineer: KRISH : 1980 Requested By: SHANICE AMRTINEZ Order Number: [id number] Reading MD: Blake Thomas Measurements Intervals Rarden Rate: 93 P: 50 ID: [id number] QRS: 8 QRSD: 106 T: 23 QT: 343 QTc: 427 Interpretive Statements Sinus rhythm ST elev, probable normal early repol pattern Electronically Signed On 02-28-2025 13:28:18 PDT by Blake Thomas Please click the below link to view image of tracing.
[2025-02-27 17:00] VITALS: BP 124/77; PULSE 84; RESP 20; TEMP 98.9; O2SAT 95
[2025-02-27] MEDS: INSULIN LISPRO (HUMAN) 100 UNITS/ML ML SC ONE (17:15)
[2025-02-27 21:00] VITALS: BP 111/71; PULSE 59; RESP 16; TEMP 97.5; O2SAT 93
[2025-02-28 01:00] VITALS: BP 107/71; PULSE 62; RESP 16; TEMP 97.9; O2SAT 97
[2025-02-28 05:00] VITALS: BP 101/67; PULSE 78; RESP 18; TEMP 97.8; O2SAT 95
[2025-02-28] MEDS: ACCU-CHEK COMFORT CURVE STRIP VI SCH (06:06)
[2025-02-28] MEDS: InsuLIN REG 1unit/0.01ml Soln (100units/ml) SC SCH (06:09)
[2025-02-28 08:19] LABS: Basophils # (auto) 0 10 ^3/uL (0-0.2); Basophils % (auto) 0.5 % (0.0-2.0); Eosinophils # (auto) 0.1 10 ^3/uL (0-0.8); Eosinophils % (auto) 1.8 % (0.0-7.0); Hematocrit 36.2 % (41.0-53.0); Hemoglobin 12.3 g/dL (13.5-17.5); Lymphocytes # (auto) 1.6 10 ^3/uL (0.4-5.4); Lymphocytes % (auto) 20.7 % (10.0-50.0); Mean Corpuscular Hemoglobin 30.3 pg (28.0-32.0); Mean Corpuscular Hgb Conc. 34.1 g/dL (32.0-36.0); Mean Corpuscular Volume 88.8 fL (80.0-100.0); Monocytes # (auto) 0.7 10 ^3/uL (0-1.3); Monocytes % (auto) 8.7 % (0.0-12.0); Neutrophils # (auto) 5.2 10 ^3/uL (1.6-8.6); Neutrophils % (auto) 68.3 % (37.0-80.0); Platelet Count (auto) 362 10^3/uL (140-450); Red Blood Cells 4.07 10^6/uL (4.5-5.90); Red Cell Distribution Width 12.5 % (11.8-14.3); White Blood Cell 7.6 10^3/uL (4.4-10.8)
[2025-02-28 08:24] VITALS: BP 110/72; PULSE 68; RESP 19; TEMP 97.2; O2SAT 99
[2025-02-28 08:37] LABS: Alanine Aminotransferase 19 U/L (7-40); Albumin 3.4 g/dL (3.2-4.8); Alkaline Phosphatase 82 U/L (46-116); Anion Gap 10 (5-15); Aspartate Aminotransferase 14 U/L (13-40); BUN/Creatinine Ratio 21.7 (10.0-20.0); Blood Urea Nitrogen 15 mg/dL (9-23); Calcium 9.2 mg/dL (8.7-10.4); Carbon Dioxide 22 mmol/L (20-31); Chloride 99 mmol/L (98-107); Total Protein 5.9 g/dL (5.7-8.2)
[2025-02-28 08:38] LABS: Bilirubin, Total 0.4 mg/dL (0.2-1.0); Potassium 3.4 mmol/L (3.5-5.1); Sodium 131 mmol/L (136-145)
[2025-02-28 08:39] LABS: Glucose 297 mg/dL (74-106)
[2025-02-28] MEDS: INSULIN 70/30 1unit/0.01ml Susp (100units/ml) SC SCH (09:16)
[2025-02-28] MEDS: POTASSIUM EFFERVESENT TAB 25 MEQ PO ONE (11:47)
[2025-02-28 11:57] VITALS: BP 105/69; PULSE 75; RESP 16; TEMP 97.9; O2SAT 95
--- NOTE | 2025-02-28 13:21 | DVHPNRES ---
Progress Note Date Seen: Feb 28, 2025 Resident Creating Document: SHANICE GASPAR RESIDENT Has the PT tested + for MRSA If YES, has PT been informed?: No Medical Necessity Reason Pt with a Central, PICC or Fol: No Subjective Review of Systems This is a 44-year-old male with past medical history of type 2 diabetes mellitus, 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 Patient states that the wounds/ulcers that are located 2 cm below the kneecap started one week ago. Patient states that initially it was erythematous, indurated and very painful. Patient states that it progressively got worse converting in small vesicles and finally draining pus. Patient admits to have uncontrolled blood glucose at home despite being compliant with his medications. Upon admission, patient was tachycardic, with fever and blood pressure running in the lower side we will consistent with sepsis due to right lower extremity cellulitis. Initial labs showed a WBC of 16.2, elevated glucose levels at 370. Lactic acid was 1.5, troponins were negative. Initial right tibial ankle x-ray showed diffuse swelling edema but no fracture or dislocation. Initial chest x-ray was showing no evidence of clear consolidations and bilateral lungs look grossly clear. Patient was admitted for further assessment and management of sepsis due to right lower extremity cellulitis. Patient seen and examined at bedside. Patient denies fever/chills, chest pain, shortness of breath, but still reports mild soreness in the right lateral thigh cellulitis location. Final wound cultures are showing growing Staphylococcus aureus methicillin sensitive, E coli, group B strep which all are sensitive to multiple antibiotics. Because of the extensive cellulitis involving superficial muscle we will keep the patient on IV antibiotics for two additional days and discharge the patient on Monday depending on clinical condition on p.o. antibiotics. Patient has no additional complaints or symptoms at this time. ROS Constitutional: Denies weight loss, fever and chills. HEENT: Denies changes in vision and hearing. Respiratory: Denies shortness of breath and cough Cardiovascular: Denies chest discomfort or palpitations GI: Denies abdominal pain, nausea, vomiting and diarrhea. : Denies dysuria and urinary frequency. Musculoskeletal: Denies myalgias and joint pain Skin: Denies rash and pruritus. Neurological: Denies dizziness, headache, vision or hearing problems Objective vital signs Vital Sign Date Time Temp Pulse Resp B/P (MAP) Pulse Ox O2 Delivery O2 Flow Rate FiO2 02/28/25 11:57 97.9 75 16 105/69 (81) 95 97.9 02/28/25 08:00 Room Air* 0 21 Total Intake and Output 02/27/25 02/27/25 02/28/25 15:00 23:00 07:00 Intake Total 700 ml 1330 ml 1760 ml Balance 700 ml 1330 ml 1760 ml medications Current Medications Medications Dose Ordered Sig/Nickolas Route Start Time Stop Time Status Last Admin Dose Admin Vancomycin HCl 0 ml @ 0 mls/hr UD IV 02/24/25 22:45 Piperacillin Sod/ Tazobactam Sod 100 ml @ 100 mls/hr Q6H IV 02/24/25 22:45 02/28/25 11:24 100 MLS/HR Sodium Chloride 10 ml Q8HR IV 02/25/25 06:00 02/28/25 05:05 10 ML Acetaminophen 650 mg Q6HP PRN PO 02/24/25 22:45 Acetaminophen/ Hydrocodone Bitart 1 tab Q4HP PRN PO 02/24/25 22:45 02/25/25 08:11 1 TAB Hydromorphone HCl 0.5 mg Q4HP PRN IV 02/24/25 22:45 02/27/25 20:08 0.5 MG Ondansetron HCl 4 mg Q4HP PRN IV 02/24/25 22:45 Aspirin 81 mg DAILY PO 02/25/25 10:00 02/28/25 09:08 81 MG Enalapril Maleate 10 mg DAILY PO 02/25/25 10:00 02/28/25 09:08 10 MG Gabapentin 400 mg BID PO 02/25/25 10:00 02/28/25 09:08 400 MG Vancomycin HCl 100 ml @ 200 mls/hr Q8H IV 02/25/25 16:00 Cancel Vancomycin HCl 250 ml @ 200 mls/hr Q12H IV 02/27/25 03:00 02/28/25 03:10 200 MLS/HR Oxycodone HCl 10 mg ONCE PRN PO 02/26/25 17:15 Hold Diagnostic Test (Pha) 1 strip ACHS 02/28/25 07:00 02/28/25 11:47 1 STRIP Insulin Human Regular AC SC 02/28/25 07:00 02/28/25 11:54 12 UNITS Insulin Human Isoph/Insulin Regular 35 units BID SC 02/28/25 09:00 02/28/25 09:16 35 UNITS Examination Physical Examination General: Patient alert and oriented in person, place and time. Patient following commands. HEENT: Normocephalic, atraumatic, moist mucous membranes Respiratory/pulmonary: Clear lungs bilaterally, no associated crackles or wheezes. Cardiovascular: slightly tachycardic Normal heart sounds S1 and S2 with no associated murmurs Abdomen: Abdomen nondistended, there is no pain to palpation in any of the abdominal quadrants, no palpable masses. Extremities: Right lower extremity has clean gauze and bandage, status post incision and drainage. There is no peripheral edema present at the lower extremities. Peripheral Pulses: 3+ Radial (R). 3+ Radial (L). 3+ Dorsalis pedis (R). 3+ Dorsalis pedis(L) Skin: No rashes or pruritus, there is no sacral edema present at this time. Neurological: Intact cranial nerves with no focal neurologic deficits laboratory and microbiology Laboratory Tests 02/28/25 07:20 Test 02/28/25 07:20 Range/Units Serum Glucose 297 H 74-106 mg/dL Microbiology Date/Time Source Procedure Growth Status 02/26/25 16:15 Knee Right Gram Stain - Final Resulted 02/26/25 16:15 Knee Right Anaerobic Culture - Preliminary Resulted 02/26/25 16:15 Knee Right Aerobic Culture - Preliminary Resulted 02/24/25 15:17 Blood Blood Culture - Preliminary NO GROWTH AFTER 72 HOURS OF INCUBATION. Resulted Problem List/Assessment/Plan Problem List/Assessment/Plan Assessment/Plan Sepsis secundary to acute right lower extremity cellulitis Acute right lower extremity cellulitis with pus secreting material -right lower extremity CT scan showed severe cellulitis involving the subcutaneous soft tissue on and lateral right femoral muscles -Right tibial ankle x-ray showed diffuse swelling edema but no fracture or dislocation. -Continue IV Zosyn and IV vancomycin -wound culture -wound consult/wound care, daily with dressing changes daily -blood cultures were ordered -incision and drainage was performed yesterday (02/26/25) in the OR by Orthopedics -Final wound cultures are growing beta-hemolytic group B Streptococcus, Staph aureus and ecoli, sensitive to multiple ibs -Will keep patient until monday to give 2 more days of IV abs. Uncontrolled type 2 diabetes mellitus -ordered hemoglobin A1c which was greater than 14% -Increase is 70/30 to 35 units BId -continue moderate sliding scale insulin -monitor blood glucose closely Mild hyponatremia -sodium 131 -we will monitor electrolytes closely Primary hypertension -Continue lisinopril 10 mg daily -Monitor blood pressure Obesity grade I -consult on balanced diet, lifestyle modifications Goals of care discussed with the patient and at bedside for >25min, FULL CODE Plan discussed with Dr. Shrestha Plan discussed with: Patient My Orders My Orders Orders - SHANICE GASPAR Procedure Category Date Status Time Insert Midline ORDERS 02/28/25 Transmitted 07:33 Insulin 70/30 (Human) PHA 02/28/25 In Process (Humulin 70/30) 09:00 * Wound Consult CONS 02/28/25 Transmitted Dietary Evaluation Review Comments: to improve compliance, advance diet to CCHO-75 g, to improve healing, provide Jacinto orange flavor BID Expected Outcomes/Goals: gradual wt loss, controlled DM Date of Service: Feb 28, 2025 Billing Provider: OTIS SHRESTHA MD Common Visit Codes: [id number] INP/OBS CARE(MOD) SHANICE GASPAR RESIDENT Feb 28, 2025 13:21 OTIS SHRESTHA MD Feb 28, 2025 14:19
[2025-02-28 16:28] VITALS: BP 95/71; PULSE 82; RESP 17; TEMP 98; O2SAT 97
[2025-02-28 21:00] VITALS: BP 108/72; PULSE 89; RESP 17; TEMP 97.9; O2SAT 95
[2025-03-01 01:10] VITALS: BP 112/72; PULSE 80; RESP 18; TEMP 97.8; O2SAT 98
[2025-03-01] MEDS: VANCOMYCIN 1.75GM/350ML 350 ML IV SCH (03:05)
[2025-03-01 05:00] VITALS: BP 103/60; PULSE 77; RESP 18; TEMP 98.9; O2SAT 96
[2025-03-01 07:29] LABS: Albumin 3.4 g/dL (3.2-4.8); Alkaline Phosphatase 83 U/L (46-116); Anion Gap 7 (5-15); BUN/Creatinine Ratio 19.5 (10.0-20.0); Bilirubin, Total 0.4 mg/dL (0.2-1.0); Blood Urea Nitrogen 15 mg/dL (9-23); Calcium 9.2 mg/dL (8.7-10.4); Carbon Dioxide 28 mmol/L (20-31); Chloride 99 mmol/L (98-107); Potassium 3.5 mmol/L (3.5-5.1)
[2025-03-01 07:33] LABS: Aspartate Aminotransferase < 8 U/L (13-40); Glucose 191 mg/dL (74-106); Sodium 134 mmol/L (136-145)
[2025-03-01 07:43] LABS: Alanine Aminotransferase 17 U/L (7-40)
[2025-03-01 07:45] LABS: Basophils # (auto) 0 10 ^3/uL (0-0.2); Basophils % (auto) 0.5 % (0.0-2.0); Eosinophils # (auto) 0.2 10 ^3/uL (0-0.8); Eosinophils % (auto) 1.7 % (0.0-7.0); Hematocrit 36.8 % (41.0-53.0); Hemoglobin 12.6 g/dL (13.5-17.5); Lymphocytes # (auto) 1.3 10 ^3/uL (0.4-5.4); Lymphocytes % (auto) 14.1 % (10.0-50.0); Mean Corpuscular Hemoglobin 30.2 pg (28.0-32.0); Mean Corpuscular Hgb Conc. 34.3 g/dL (32.0-36.0); Mean Corpuscular Volume 88.2 fL (80.0-100.0); Monocytes % (auto) 10.9 % (0.0-12.0); Neutrophils # (auto) 6.6 10 ^3/uL (1.6-8.6); Neutrophils % (auto) 72.8 % (37.0-80.0); Platelet Count (auto) 437 10^3/uL (140-450); Red Blood Cells 4.17 10^6/uL (4.5-5.90); Red Cell Distribution Width 12.5 % (11.8-14.3); White Blood Cell 9.1 10^3/uL (4.4-10.8)
[2025-03-01 08:00] VITALS: BP 134/78; PULSE 87; RESP 20; TEMP 98.1; O2SAT 97
--- NOTE | 2025-03-01 11:34 | DVHPN2 ---
Reviewed: Care Plan Changes from previous H/P or p: No Changes Objective Vitals Vital Signs Date Time Temp Pulse Resp B/P (MAP) Pulse Ox O2 Delivery O2 Flow Rate FiO2 03/01/25 09:57 87 20 134/78 03/01/25 08:00 98.1 97 98.1 03/01/25 07:35 Room Air* 0 21 Intake/Output Intake and Output 03/01/25 07:00 Intake Total 2700 ml Output Total 600 ml Balance 2100 ml Intake Oral 1800 ml IV Total 900 ml Output Urine Total 600 ml Medications Current Medications Medications Dose Ordered Sig/Nickolas Route Start Time Stop Time Status Last Admin Dose Admin Vancomycin HCl 0 ml @ 0 mls/hr UD IV 02/24/25 22:45 Piperacillin Sod/ Tazobactam Sod 100 ml @ 100 mls/hr Q6H IV 02/24/25 22:45 03/01/25 09:50 100 MLS/HR Sodium Chloride 10 ml Q8HR IV 02/25/25 06:00 03/01/25 04:54 10 ML Acetaminophen 650 mg Q6HP PRN PO 02/24/25 22:45 Acetaminophen/ Hydrocodone Bitart 1 tab Q4HP PRN PO 02/24/25 22:45 02/28/25 16:20 1 TAB Hydromorphone HCl 0.5 mg Q4HP PRN IV 02/24/25 22:45 03/01/25 09:57 0.5 MG Ondansetron HCl 4 mg Q4HP PRN IV 02/24/25 22:45 Aspirin 81 mg DAILY PO 02/25/25 10:00 03/01/25 09:50 81 MG Enalapril Maleate 10 mg DAILY PO 02/25/25 10:00 03/01/25 09:50 10 MG Gabapentin 400 mg BID PO 02/25/25 10:00 03/01/25 09:50 400 MG Vancomycin HCl 100 ml @ 200 mls/hr Q8H IV 02/25/25 16:00 Cancel Oxycodone HCl 10 mg ONCE PRN PO 02/26/25 17:15 Hold Diagnostic Test (Pha) 1 strip ACHS 02/28/25 07:00 03/01/25 11:24 1 STRIP Insulin Human Regular AC SC 02/28/25 07:00 03/01/25 06:28 4 UNITS Insulin Human Isoph/Insulin Regular 35 units BID SC 02/28/25 09:00 03/01/25 09:56 35 UNITS Vancomycin HCl 350 ml @ 233.333 mls/hr Q12H IV 03/01/25 03:00 03/01/25 03:05 233.333 MLS/HR Laboratory Results Laboratory Tests 03/01/25 06:52 Chemistry Test 03/01/25 06:52 Albumin 3.4 g/dL (3.2-4.8) Calcium Level 9.2 mg/dL (8.7-10.4) Total Protein 6.0 g/dL (5.7-8.2) LFT Test 03/01/25 06:52 Alanine Aminotransferase (ALT) 17 U/L (7-40) Alkaline Phosphatase 83 U/L (46-116) Aspartate Amino Transferase (AST) < 8 U/L (13-40) L Total Bilirubin 0.4 mg/dL (0.2-1.0) Urinalysis Test 02/26/25 15:37 Urine Color Yellow (Yellow) Urine Clarity Clear (Clear) Urine pH 5.5 (5.0-9.0) Urine Specific [place] 1.041 (1.001-1.035) Urine Protein 1+ (Negative) H Urine Ketones 3+ (Negative) H Urine Blood Negative /uL (Negative) Urine Nitrite Negative (Negative) Urine Bilirubin Negative (Negative) Urine Urobilinogen Normal mg/dL (Negative) Urine Leukocyte Esterase Negative /uL (Negative) Urine RBC 4 /hpf (0 - 3) Urine Microscopic WBC 2 /HPF (0-3) Urine Squamous Epithelial Cells Few /hpf (<5) Urine Bacteria None seen /hpf (None Seen) Urine Yeast (Budding) Occasional /hpf (None Urine Glucose 4+ mg/dL (Normal) H Microbiology Microbiology Date/Time Source Procedure Growth Status 02/26/25 16:15 Knee Right Gram Stain - Final Resulted 02/26/25 16:15 Knee Right Anaerobic Culture - Preliminary Resulted 02/26/25 16:15 Knee Right Aerobic Culture - Preliminary Resulted 02/24/25 15:17 Blood Blood Culture - Preliminary NO GROWTH AFTER 72 HOURS OF INCUBATION. Resulted Labs and/or images reviewed: Labs reviewed by me, Image(s) reviewed by me Assessment/Plan Assessment/Plan Covering for resident physician Sepsis secondary to acute lower extremity cellulitis: Continue Zosyn vancomycin Uncontrolled diabetes type 2 Mild hyponatremia Hypertension Obesity Plan discussed with: Patient Date of Service: Mar 01, 2025 Billing Provider: JULIO GRIFFITH MD Common Visit Codes: [id number] INP/OBS CARE(HIGH) JULIO GRIFFITH MD Mar 01, 2025 11:34
[2025-03-01 12:00] VITALS: BP 122/79; PULSE 84; RESP 20; TEMP 98; O2SAT 97
[2025-03-01 16:00] VITALS: BP 101/58; PULSE 75; RESP 18; TEMP 98.4; O2SAT 94
[2025-03-01 21:00] VITALS: BP 93/52; PULSE 89; RESP 20; TEMP 98.3; O2SAT 96
[2025-03-02 01:15] VITALS: BP 98/62; PULSE 81; RESP 20; TEMP 98.4; O2SAT 95
[2025-03-02 05:00] VITALS: BP 98/62; PULSE 75; RESP 19; TEMP 98.7; O2SAT 98
[2025-03-02 09:00] VITALS: BP 99/66; PULSE 77; RESP 20; TEMP 97; O2SAT 98
[2025-03-02 10:57] LABS: Basophils # (auto) 0 10 ^3/uL (0-0.2); Basophils % (auto) 0.6 % (0.0-2.0); Eosinophils # (auto) 0.2 10 ^3/uL (0-0.8); Hemoglobin 12.7 g/dL (13.5-17.5); Lymphocytes # (auto) 1.2 10 ^3/uL (0.4-5.4); Red Cell Distribution Width 12.7 % (11.8-14.3); White Blood Cell 8.4 10^3/uL (4.4-10.8)
[2025-03-02 11:02] LABS: Eosinophils % (auto) 2.2 % (0.0-7.0); Hematocrit 37.6 % (41.0-53.0); Lymphocytes % (auto) 14.3 % (10.0-50.0); Mean Corpuscular Hemoglobin 30.4 pg (28.0-32.0); Mean Corpuscular Hgb Conc. 33.9 g/dL (32.0-36.0); Mean Corpuscular Volume 89.9 fL (80.0-100.0); Monocytes % (auto) 11.4 % (0.0-12.0); Neutrophils % (auto) 71.5 % (37.0-80.0); Nucleated Red Blood Cells % 0.1 %; Platelet Count (auto) 445 10^3/uL (140-450); Red Blood Cells 4.18 10^6/uL (4.5-5.90)
[2025-03-02 11:08] LABS: Chloride 99 mmol/L (98-107); Potassium 3.6 mmol/L (3.5-5.1)
[2025-03-02 11:09] LABS: Anion Gap 7 (5-15); Calcium 9.2 mg/dL (8.7-10.4); Carbon Dioxide 26 mmol/L (20-31)
[2025-03-02 11:14] LABS: BUN/Creatinine Ratio 12.3 (10.0-20.0); Blood Urea Nitrogen 9 mg/dL (9-23)
[2025-03-02 11:15] LABS: Glucose 270 mg/dL (74-106); Sodium 132 mmol/L (136-145)
[2025-03-02 13:00] VITALS: BP 123/76; PULSE 76; RESP 20; TEMP 97.8; O2SAT 97
--- NOTE | 2025-03-02 14:35 | DVHPNRES ---
Progress Note Date Seen: Mar 02, 2025 Resident Creating Document: SHANICE GASPAR RESIDENT Has the PT tested + for MRSA If YES, has PT been informed?: No Medical Necessity Reason Pt with a Central, PICC or Fol: No Subjective Review of Systems This is a 44-year-old male with past medical history of type 2 diabetes mellitus, 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 Patient states that the wounds/ulcers that are located 2 cm below the kneecap started one week ago. Patient states that initially it was erythematous, indurated and very painful. Patient states that it progressively got worse converting in small vesicles and finally draining pus. Patient admits to have uncontrolled blood glucose at home despite being compliant with his medications. Upon admission, patient was tachycardic, with fever and blood pressure running in the lower side we will consistent with sepsis due to right lower extremity cellulitis. Initial labs showed a WBC of 16.2, elevated glucose levels at 370. Lactic acid was 1.5, troponins were negative. Initial right tibial ankle x-ray showed diffuse swelling edema but no fracture or dislocation. Initial chest x-ray was showing no evidence of clear consolidations and bilateral lungs look grossly clear. Patient was admitted for further assessment and management of sepsis due to right lower extremity cellulitis. Patient seen and examined at bedside. Patient is alert and oriented in person, place and time. Patient denies fever/chills, chest pain, shortness of breath or any other complaint at this time. Patient states that right lower extremity pain is almost completely gone but there is a small slight erythema in the lateral aspect of the distal right thigh which is very mildly tender to deep palpation but has improved significantly compared to admission. We will continue IV vancomycin and Zosyn at this time and we will plan to discharge the patient tomorrow on p.o. antibiotics. Wound was examined this morning and there are two small open wounds that are not currently draining active purulent material or serosanguineous fluid. There is no significant erythema or warmth sensation to the wounds at this time and since to be healing properly at this point. ROS Constitutional: Denies weight loss, fever and chills. HEENT: Denies changes in vision and hearing. Respiratory: Denies shortness of breath and cough Cardiovascular: Denies chest discomfort or palpitations GI: Denies abdominal pain, nausea, vomiting and diarrhea. : Denies dysuria and urinary frequency. Musculoskeletal: Still reports mild tenderness in the right lateral aspect of the distal right thigh. Denies myalgias and joint pain Skin: Denies rash and pruritus. Neurological: Denies dizziness, headache, vision or hearing problems Objective vital signs Vital Sign Date Time Temp Pulse Resp B/P (MAP) Pulse Ox O2 Delivery O2 Flow Rate FiO2 03/02/25 13:00 97.8 76 20 123/76 (92) 97 97.8 03/02/25 08:10 Room Air* 0 21 Total Intake and Output 03/01/25 03/01/25 03/02/25 15:00 23:00 07:00 Intake Total 200 ml 700 ml 1630 ml Balance 200 ml 700 ml 1630 ml medications Current Medications Medications Dose Ordered Sig/Nickolas Route Start Time Stop Time Status Last Admin Dose Admin Vancomycin HCl 0 ml @ 0 mls/hr UD IV 02/24/25 22:45 Piperacillin Sod/ Tazobactam Sod 100 ml @ 100 mls/hr Q6H IV 02/24/25 22:45 03/02/25 10:46 100 MLS/HR Sodium Chloride 10 ml Q8HR IV 02/25/25 06:00 03/02/25 13:03 10 ML Acetaminophen 650 mg Q6HP PRN PO 02/24/25 22:45 Acetaminophen/ Hydrocodone Bitart 1 tab Q4HP PRN PO 02/24/25 22:45 03/02/25 10:57 1 TAB Hydromorphone HCl 0.5 mg Q4HP PRN IV 02/24/25 22:45 03/01/25 19:38 0.5 MG Ondansetron HCl 4 mg Q4HP PRN IV 02/24/25 22:45 Aspirin 81 mg DAILY PO 02/25/25 10:00 03/02/25 10:00 81 MG Enalapril Maleate 10 mg DAILY PO 02/25/25 10:00 03/02/25 10:00 10 MG Gabapentin 400 mg BID PO 02/25/25 10:00 03/02/25 10:00 400 MG Vancomycin HCl 100 ml @ 200 mls/hr Q8H IV 02/25/25 16:00 Cancel Oxycodone HCl 10 mg ONCE PRN PO 02/26/25 17:15 Hold Diagnostic Test (Pha) 1 strip ACHS 02/28/25 07:00 03/02/25 10:59 1 STRIP Insulin Human Regular AC SC 02/28/25 07:00 03/02/25 11:54 8 UNITS Insulin Human Isoph/Insulin Regular 35 units BID SC 02/28/25 09:00 03/02/25 10:00 35 UNITS Vancomycin HCl 350 ml @ 233.333 mls/hr Q12H IV 03/01/25 03:00 03/02/25 02:49 233.333 MLS/HR Examination Physical Examination General: Patient alert and oriented in person, place and time. Patient following commands. HEENT: Normocephalic, atraumatic, moist mucous membranes Respiratory/pulmonary: Clear lungs bilaterally, no associated crackles or wheezes. Cardiovascular: slightly tachycardic Normal heart sounds S1 and S2 with no associated murmurs Abdomen: Abdomen nondistended, there is no pain to palpation in any of the abdominal quadrants, no palpable masses. Extremities: Right lower extremity has clean gauze and bandage, status post incision and drainage. There are two small open wounds 2 cm below the kneecap that are not currently draining any material at this point. There is a mild erythema located at the distal lateral aspect of the right thigh. There is no peripheral edema present at the lower extremities. Peripheral Pulses: 3+ Radial (R). 3+ Radial (L). 3+ Dorsalis pedis (R). 3+ Dorsalis pedis(L) Skin: No rashes or pruritus, there is no sacral edema present at this time. Neurological: Intact cranial nerves with no focal neurologic deficits laboratory and microbiology Laboratory Tests 03/02/25 10:30 Test 03/02/25 10:30 Range/Units Serum Glucose 270 H 74-106 mg/dL Microbiology Date/Time Source Procedure Growth Status 02/26/25 16:15 Knee Right Gram Stain - Final Complete 02/26/25 16:15 Knee Right Anaerobic Culture - Final Complete 02/26/25 16:15 Knee Right Aerobic Culture - Final Complete 02/24/25 15:17 Blood Blood Culture - Final NO GROWTH AFTER 5 DAYS OF INCUBATION. Complete Problem List/Assessment/Plan Problem List/Assessment/Plan Assessment/Plan Sepsis secundary to acute right lower extremity cellulitis Acute right lower extremity cellulitis with pus secreting material -right lower extremity CT scan showed severe cellulitis involving the subcutaneous soft tissue on and lateral right femoral muscles -Right tibial ankle x-ray showed diffuse swelling edema but no fracture or dislocation. -Continue IV Zosyn and IV vancomycin -wound culture -wound consult/wound care, daily with dressing changes daily -blood cultures were ordered -incision and drainage was performed yesterday (02/26/25) in the OR by Orthopedics -Final wound cultures are growing beta-hemolytic group B Streptococcus, Staph aureus and ecoli, sensitive to multiple ibs -Will continue IV antibiotics and most likely discharge the patient tomorrow on p.o. antibiotics. Uncontrolled type 2 diabetes mellitus -ordered hemoglobin A1c which was greater than 14% -continue insulin 70/30 to 35 units BId -continue moderate sliding scale insulin -monitor blood glucose closely Mild hyponatremia -sodium 132 -we will monitor electrolytes closely Primary hypertension -Continue lisinopril 10 mg daily -Monitor blood pressure Obesity grade I -consult on balanced diet, lifestyle modifications Goals of care discussed with the patient and at bedside for >25min, FULL CODE Plan discussed with Dr. Toth Plan discussed with: Patient Dietary Evaluation Review Comments: to improve compliance, advance diet to CCHO-75 g, to improve healing, provide Jacinto orange flavor BID Expected Outcomes/Goals: gradual wt loss, controlled DM Date of Service: Mar 02, 2025 Billing Provider: MARVIN TOTH MD Common Visit Codes: [id number] INP/OBS CARE(HIGH) SHANICE GASPAR RESIDENT Mar 02, 2025 14:35 MARVIN TOTH MD Mar 03, 2025 11:34
[2025-03-02] MEDS: VANCOMYCIN 1GM/200ML PM 200 ML IV SCH (15:56)
[2025-03-02 17:00] VITALS: BP 116/76; PULSE 78; RESP 20; TEMP 97.9; O2SAT 97
[2025-03-02 21:00] VITALS: BP 131/81; PULSE 84; RESP 19; TEMP 98.8; O2SAT 98
[2025-03-03 00:59] VITALS: BP 127/75; PULSE 91; RESP 18; TEMP 98.8; O2SAT 98
[2025-03-03 05:00] VITALS: BP 122/68; PULSE 74; RESP 16; TEMP 98.6; O2SAT 98
[2025-03-03 08:00] VITALS: PULSE 80; RESP 19; O2SAT 97
[2025-03-03 09:00] VITALS: BP 106/73; PULSE 80; RESP 19; TEMP 98.8; O2SAT 97
[2025-03-03 10:28] LABS: Chloride 100 mmol/L (98-107); Potassium 4.1 mmol/L (3.5-5.1)
[2025-03-03 10:29] LABS: Anion Gap 6 (5-15); Carbon Dioxide 28 mmol/L (20-31)
[2025-03-03 10:30] LABS: Basophils # (auto) 0.1 10 ^3/uL (0-0.2); Basophils % (auto) 0.7 % (0.0-2.0); Eosinophils # (auto) 0.3 10 ^3/uL (0-0.8); Eosinophils % (auto) 2.9 % (0.0-7.0); Hematocrit 35.8 % (41.0-53.0); Hemoglobin 12.3 g/dL (13.5-17.5); Lymphocytes # (auto) 1.3 10 ^3/uL (0.4-5.4); Lymphocytes % (auto) 14.3 % (10.0-50.0); Mean Corpuscular Hemoglobin 30.8 pg (28.0-32.0); Mean Corpuscular Hgb Conc. 34.3 g/dL (32.0-36.0); Mean Corpuscular Volume 89.6 fL (80.0-100.0); Monocytes # (auto) 0.9 10 ^3/uL (0-1.3); Monocytes % (auto) 10.6 % (0.0-12.0); Neutrophils # (auto) 6.4 10 ^3/uL (1.6-8.6); Neutrophils % (auto) 71.5 % (37.0-80.0); Platelet Count (auto) 423 10^3/uL (140-450); Red Cell Distribution Width 12.7 % (11.8-14.3); White Blood Cell 8.9 10^3/uL (4.4-10.8)
--- NOTE | 2025-03-03 10:32 | DVHINCON2 ---
Date of service: Mar 03, 2025 Family History: Diabetes mellitus G8 MOTHER G8 FATHER Hypertension G8 MOTHER G8 FATHER Allergies: Coded Allergies: NO KNOWN ALLERGIES (Unverified , 02/15/19) Home Meds Active Scripts Empagliflozin (Jardiance) 10 Mg Tab, 10 MG PO DAILY for 30 Days, #30 TAB Prov:SHANICE GASPAR RESIDENT 03/03/25 Cephalexin Monohydrate (Cephalexin) 500 Mg Cap, 1 CAP PO QID for 21 Days, #84 CAP Prov:SHANICE GASPAR RESIDENT 03/03/25 Insulin NPH Isophane & Reg (Hu (Novolin 70/30 Flexpen (70-30) 100 Unit/ml) 1 Inj Inj, 35 INJ SC BID for 30 Days, #1 INJ Prov:SHANICE AGSPAR RESIDENT 03/03/25 Reported Medications Gabapentin (Gabapentin) 400 Mg Cap, 1 CAP PO BID 04/11/23 Aspirin (Aspir-Low) 81 Mg Tab, 81 MG PO DAILY, MG 09/09/22 Enalapril Maleate (Enalapril Maleate) 10 Mg Tab, 10 MG PO DAILY, TAB 09/09/22 Metformin Hydrochloride (Metformin Hcl) 500 Mg Tab, 1000 MG PO BID for 30 Days, MG 09/09/22 Discontinued Reported Medications Insulin Glargine (Lantus Solostar) 100 Unit/Ml Inj, 30 UNIT SC HS, INJ 09/09/22 Discontinued Scripts Tramadol Hcl (Tramadol Hcl) 50 Mg Tab, 50 MG PO TIDP PRN for 6 Days, #18 TAB Prov:TUAN LOPEZ MD 04/13/23 Doxycycline (Monohydrate) (Doxycycline) 100 Mg Tab, 100 MG PO BID for 21 Days, #42 TAB Prov:TUAN LOPEZ MD 04/13/23 Fluconazole (Fluconazole) 100 Mg Tab, 400 MG PO DAILY for 30 Days, #120 TAB 2 Refills Prov:TUAN LOPEZ MD 09/22/22 Levofloxacin Hemihydrate (LEVOFLOXACIN) 250 Mg Tab, 500 MG PO DAILY for 10 Days, #20 TAB Prov:TUAN LOPEZ MD 09/22/22 Current Medications Current Medications Medications (Trade) Dose Ordered Sig/Nickolas Route PRN Reason Start Time Stop Time Status Last Admin Vancomycin HCl 200 ml @ 160 mls/hr Q6H IV 03/02/25 15:00 03/03/25 09:33 Vital Signs Vital Signs Date Time Temp Pulse Resp B/P (MAP) Pulse Ox O2 Delivery O2 Flow Rate FiO2 03/03/25 09:40 80 18 106/73 03/03/25 08:00 97 Room Air* 0 21 03/03/25 05:00 98.6 98.6 Labs/Diagnostic Data Labs Test 03/03/25 09:50 03/03/25 06:12 03/02/25 14:56 03/02/25 10:30 Range/Units POC Glucose 155 H 70-106 mg/dl Vancomycin Level Trough 9.2 5-10 ug/mL Eosinophils (%) (Auto) 2.2 0.0-7.0 % Eosinophils # (Auto) 0.2 0-0.8 10 ^3/uL Basophils # (Auto) 0 0-0.2 10 ^3/uL Nucleated Red Blood Cells 0.1 % Test 03/01/25 06:52 02/27/25 10:07 02/27/25 07:33 02/26/25 15:37 Range/Units Total Bilirubin 0.4 0.2-1.0 mg/dL Aspartate Amino Transferase (AST) < 8 L 13-40 U/L Alanine Aminotransferase (ALT) 17 7-40 U/L Alkaline Phosphatase 83 46-116 U/L Total Protein 6.0 5.7-8.2 g/dL Albumin 3.4 3.2-4.8 g/dL Erythrocyte Sedimentation Rate 66 H 0-20 mm/hr C-Reactive Protein High Sensitivity 18.72 H <1.0 mg/dL Urine Color Yellow Yellow Urine Clarity Clear Clear Urine pH 5.5 5.0-9.0 Urine Specific [place] 1.041 H 1.001-1.035 Urine Protein 1+ H Negative Urine Ketones 3+ H Negative Urine Blood Negative Negative /uL Urine Nitrite Negative Negative Urine Bilirubin Negative Negative Urine Urobilinogen Normal Negative mg/dL Urine Leukocyte Esterase Negative Negative /uL Urine RBC 4 0 - 3 /hpf Urine Microscopic WBC 2 0-3 /HPF Urine Squamous Epithelial Cells Few <5 /hpf Urine Bacteria None seen None Seen /hpf Urine Yeast (Budding) Occasional None Seen /hpf Urine Glucose 4+ H Normal mg/dL Test 02/26/25 05:42 02/25/25 07:43 02/24/25 18:26 Range/Units Differential Total Cells Counted 100.0 100 Neutrophils % (Manual) 65 37.0-80.0 Band Neutrophils % (Manual) 5 Lymphocytes % (Manual) 12 10.0-50.0 Monocytes % (Manual) 17 H 0-12 Eosinophils % (Manual) 1 0-7 Basophils % (Manual) 0 0.0-2.0 Metamyelocytes % (manual) 0 Myelocytes % (Manual) 0 Promyelocytes % (Manual) 0 Blast Cells % (Manual) 0 Reactive Lymphocytes 0 Platelet Estimate Adequate Clumped Platelets Few Large Platelets Few Hemoglobin A1c > 14.0 H <5.7 % A1C Lactic Acid Level 1.5 0.4-2.0 mmol/L Troponin I High Sensitivity < 3 L </=54 ng/L Microbiology Date/Time Source Procedure Growth Status 02/26/25 16:15 Knee Right Gram Stain - Final Complete 02/26/25 16:15 Knee Right Anaerobic Culture - Final Complete 02/26/25 16:15 Knee Right Aerobic Culture - Final Complete 02/24/25 15:17 Blood Blood Culture - Final NO GROWTH AFTER 5 DAYS OF INCUBATION. Complete Plan/Recommendation ASSESSMENT AND PLAN: ID Problem List: - Right leg/chin ulcer with osteitis - Severe right leg cellulitis - Right knee myositis - Right knee bursitis - Diabetes with uncontrolled hyperglycemia Assessment This is a 44-year-old male with a past medical history of diabetes who presents with a one-week history of a non-healing right chin ulcer (overlying the powell bone, but without direct bone exposure or abscess), and associated symptoms of dizziness and lightheadedness. He has had recent home treatment with doxycycline, fluconazole, and levofloxacin. Notably, he has uncontrolled blood glucose levels on admission, with a temperature of 100.7F and leukocytosis (WBC 16.2). Initial inpatient intravenous antibiotics included vancomycin and Zosyn, but cultures and clinical history direct narrowing of coverage. Operative intervention (incision and drainage) was performed on 04/[address] Lomas, including wound irrigation, evacuation, and antibiotic bead placement, followed by wound closure. CT right lower extremity demonstrates severe cellulitis involving subcutaneous tissue and lateral right femoral muscles. X-ray of the right leg does not reveal skeletal involvement. Operative cultures grew beta-hemolytic Group B Streptococcus, Staphylococcus aureus (MSSA), and Escherichia coli; all are sensitive to cefazolin. Plan: - Discontinue vancomycin and piperacillin-tazobactam (Zosyn). - Start ceftriaxone while inpatient. - Discharge plan to include oral cefazolin 500 mg QID for 21 days (verify prescription and sensitivities at discharge). - Obtain wound care supplies prior to discharge and ensure patient education regarding wound care. - Schedule follow-up with primary care physician for wound monitoring and to address glycemic control (target blood glucose <180 mg/dL). - Follow-up with general surgery for staple removal. - Monitor for finalization of operative cultures and adjust therapy if antibiotic susceptibilities change. - Address right knee myositis and bursitis as per wound and infectious disease recommendations. - Continue close monitoring of clinical status and laboratory results. Isolation Precautions: Not specified in transcript. Assessment and plan was discussed with the patient as written above. Plan is subject to change pending incorporation of new incoming information/diagnostics. Updates may be added as addendum at the bottom (OR TOP) of this note. Thank you for consult. ID will continue to follow. Please contact Infectious Disease for any questions or concerns. Marv Cool M.D. [facility] Ph: ? Electronically signed by: Marv Cool MD, 03/03/2025 History: The patient's chart and medications were reviewed in detail and the patient was seen and examined. History obtained from: patient Cary Thakkar is a 44-year-old male with a past medical history of diabetes, now presenting with a non-healing right powell ulcer for the last week. Symptoms include dizziness and lightheadedness. He was on doxycycline, fluconazole, and levofloxacin at home prior to admission (exact dosages and duration not specified). He reports uncontrolled blood sugars. Temperature recorded at 100.7F on presentation. Appendectomy in remote history. No history of smoking. Rare alcohol use. Denies heavy drug use. On examination, right powell ulcer noted, overlying the bone but without bone exposure or abscess. Ulcer is draining pus. Laboratory findings: lactic acid 1.5, WBC 16.2, platelet count 396, creatinine 1.02, BUN 10.3. CT right leg revealed severe cellulitis of subcutaneous tissue and lateral right femoral muscles. X-ray without signs of bone involvement. Operative intervention (Dr. Lomas, 04/28): - I&D of right knee, evacuation, wound irrigation, antibiotic beads placed, wound closed. Operative cultures: beta Group B Streptococcus, MSSA, E. coli, all sensitive to cefazolin. Review of Systems: A complete 10-system review of systems was completed and negative except as noted in the HPI or here. - CONSTITUTIONAL: Reports dizziness, denies weight loss, denies chills. - HEENT: Not discussed. - RESPIRATORY: Not discussed. - CV: Not discussed. - GI: Not discussed. - : Not discussed. - MSK: Reports right knee pain; otherwise not discussed. - SKIN: Right powell ulcer, otherwise not discussed. - NEUROLOGICAL: Not discussed. - PSYCHIATRIC: Not discussed. Past Medical History: - Diabetes mellitus Past Surgical History: - Appendectomy Home Medications: - Doxycycline (dose/frequency not specified) - Fluconazole (dose/frequency not specified) - Levofloxacin (dose/frequency not specified) - (Note: Home antibiotics prior to admission; discontinued upon admission.) Allergies: Not provided in transcript. Family History: Not provided in transcript. Social History: Tobacco: Never smoker Alcohol: Rare use Drug use: No heavy use reported Sexual history: Not discussed Marital/Partnership: Not discussed Occupation: Not discussed Objective: Vital Signs on Arrival: Temp: 100.7F, BP: 114/63, Pulse: 105, Resp: 16, SpO2: 95% (room air) Most Recent Vital Signs: Temp: 99.4F, BP: 114/63, Pulse: 105, Resp: 16, SpO2: 95% (room air) Admission Weight: Not provided in transcript. Physical Exam: General: NAD Neck: Supple. No masses. HEENT: PERRL. Normal lids and conjunctiva. Moist mucous membranes. Oropharynx without lesions, exudates or excessive erythema. Normal appearance of the external aspects of the nose and ears. Heart: Regular rhythm, normal rate. No murmur. No lower extremity edema. Lungs: Normal respiratory effort. Clear to auscultation bilaterally. No wheezes. No crackles. Abdomen: Soft. Non-tender. Non-distended. No masses or abdominal hernia. Msk: Right powell ulcer draining pus, overlying bone but without bone exposure. Normal strength and tone in all 4 limbs otherwise. Skin: Warm and dry, no rashes except right powell ulcer as noted above. Neuro: Alert. No facial droop or slurred speech. Extra-ocular movements intact. Sensation intact to soft touch in all 4 limbs. Psych: Appropriate mood. Full affect. Oriented to person, place, time, and situation. Lines: Not provided in transcript. Diagnostic Studies: Available diagnostic studies were reviewed personally. Significant relevant results and findings are outlined below or addressed in the Assessment and Plan above. Pertinent Imaging: CT Right Leg: Severe cellulitis involving the subcutaneous soft tissue and lateral right femoral muscles. X-ray Right Leg: No fracture, dislocation, or osseous lesion. No evidence of bone involvement. Laboratory Data: Lactic acid: 1.5 WBC: 16.2 Platelets: 396 Creatinine: 1.02 BUN: 10.3 Microbiology: Operative and superficial cultures: - Beta Group B Streptococcus - Staphylococcus aureus (MSSA) - Escherichia coli (All sensitive to cefazolin.) Other Data: Not provided in transcript. If additional diagnostic studies or data are obtained, updates may be added as an addendum to this note. Plan discussed with: Patient MARV COOL MD Mar 03, 2025 10:32
[2025-03-03 10:34] LABS: BUN/Creatinine Ratio 11.9 (10.0-20.0)
[2025-03-03 10:39] LABS: Blood Urea Nitrogen 8 mg/dL (9-23); Glucose 220 mg/dL (74-106); Sodium 134 mmol/L (136-145)
--- NOTE | 2025-03-03 11:14 | DVHDSRES ---
Discharge Summary Date of Admission Resident Creating Document: SHANICE GASPAR RESIDENT Feb 24, 2025 at 22:44 Date of Discharge: Mar 03, 2025 Admitting Diagnosis Right lower extremity cellulitis Wounds: Two small open wounds 2 cm below the kneecap which has improved compared to admission Labs/Diagnostic Data: Laboratory Results Test 03/03/25 09:50 03/03/25 06:12 03/02/25 14:56 03/01/25 06:52 White Blood Count 8.9 10^3/uL (4.4-10.8) Red Blood Count 4.00 10^6/uL (4.5-5.90) Hemoglobin 12.3 g/dL (13.5-17.5) Hematocrit 35.8 % (41.0-53.0) Mean Corpuscular Volume 89.6 fL (80.0-100.0) Mean Corpuscular Hemoglobin 30.8 pg (28.0-32.0) Mean Corpuscular Hemoglobin Concent 34.3 g/dL (32.0-36.0) Red Cell Distribution Width 12.7 % (11.8-14.3) Platelet Count 423 10^3/uL (140-450) Mean Platelet Volume 7.1 fL (6.9-10.8) Neutrophils (%) (Auto) 71.5 % (37.0-80.0) Lymphocytes (%) (Auto) 14.3 % (10.0-50.0) Monocytes (%) (Auto) 10.6 % (0.0-12.0) Eosinophils (%) (Auto) 2.9 % (0.0-7.0) Basophils (%) (Auto) 0.7 % (0.0-2.0) Neutrophils # (Auto) 6.4 10 ^3/uL (1.6-8.6) Lymphocytes # (Auto) 1.3 10 ^3/uL (0.4-5.4) Monocytes # (Auto) 0.9 10 ^3/uL (0-1.3) Eosinophils # (Auto) 0.3 10 ^3/uL (0-0.8) Basophils # (Auto) 0.1 10 ^3/uL (0-0.2) Nucleated Red Blood Cells 0.0 % Sodium Level 134 mmol/L (136-145) Potassium Level 4.1 mmol/L (3.5-5.1) Chloride Level 100 mmol/L (98-107) Carbon Dioxide Level 28 mmol/L (20-31) Anion Gap 6 (5-15) Blood Urea Nitrogen 8 mg/dL (9-23) Creatinine 0.67 mg/dL (0.700-1.30) Glomerular Filtration Rate Calc 117 mL/min (>90) BUN/Creatinine Ratio 11.9 (10.0-20.0) Serum Glucose 220 mg/dL (74-106) Calcium Level 9.0 mg/dL (8.7-10.4) POC Glucose 155 mg/dl (70-106) Vancomycin Level Trough 9.2 ug/mL (5-10) Total Bilirubin 0.4 mg/dL (0.2-1.0) Aspartate Amino Transferase (AST) < 8 U/L (13-40) Alanine Aminotransferase (ALT) 17 U/L (7-40) Alkaline Phosphatase 83 U/L (46-116) Total Protein 6.0 g/dL (5.7-8.2) Albumin 3.4 g/dL (3.2-4.8) Test 02/27/25 10:07 02/27/25 07:33 02/26/25 15:37 02/26/25 05:42 Erythrocyte Sedimentation Rate 66 mm/hr (0-20) C-Reactive Protein High Sensitivity 18.72 mg/dL (<1.0) Urine Color Yellow (Yellow) Urine Clarity Clear (Clear) Urine pH 5.5 (5.0-9.0) Urine Specific [place] 1.041 (1.001-1.035) Urine Protein 1+ (Negative) Urine Ketones 3+ (Negative) Urine Blood Negative /uL (Negative) Urine Nitrite Negative (Negative) Urine Bilirubin Negative (Negative) Urine Urobilinogen Normal mg/dL (Negative) Urine Leukocyte Esterase Negative /uL (Negative) Urine RBC 4 /hpf (0 - 3) Urine Microscopic WBC 2 /HPF (0-3) Urine Squamous Epithelial Cells Few /hpf (<5) Urine Bacteria None seen /hpf (None Seen) Urine Yeast (Budding) Occasional /hpf (None Urine Glucose 4+ mg/dL (Normal) Differential Total Cells Counted 100.0 (100) Neutrophils % (Manual) 65 (37.0-80.0) Band Neutrophils % (Manual) 5 Lymphocytes % (Manual) 12 (10.0-50.0) Monocytes % (Manual) 17 (0-12) Eosinophils % (Manual) 1 (0-7) Basophils % (Manual) 0 (0.0-2.0) Metamyelocytes % (manual) 0 Myelocytes % (Manual) 0 Promyelocytes % (Manual) 0 Blast Cells % (Manual) 0 Reactive Lymphocytes 0 Platelet Estimate Adequate Clumped Platelets Few Large Platelets Few Test 02/25/25 07:43 02/24/25 18:26 Hemoglobin A1c > 14.0 % A1C (<5.7) Lactic Acid Level 1.5 mmol/L (0.4-2.0) Troponin I High Sensitivity < 3 ng/L (</=54) Other Laboratory Tests 03/03/25 09:50 Brief Hx & Hospital Course: This is a 44-year-old male with past medical history of type 2 diabetes mellitus, 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 Patient states that the wounds/ulcers that are located 2 cm below the kneecap started one week ago. Patient states that initially it was erythematous, indurated and very painful. Patient states that it progressively got worse converting in small vesicles and finally draining pus. Patient admits to have uncontrolled blood glucose at home despite being compliant with his medications. Upon admission, patient was tachycardic, with fever and blood pressure running in the lower side we will consistent with sepsis due to right lower extremity cellulitis. Initial labs showed a WBC of 16.2, elevated glucose levels at 370. Lactic acid was 1.5, troponins were negative. Initial right tibial ankle x-ray showed diffuse swelling edema but no fracture or dislocation. Initial chest x-ray was showing no evidence of clear consolidations and bilateral lungs look grossly clear. Patient was assessed by fiber artist which recommended ortho intervention for incision and drainage of the wound in the right lower extremity below the kneecap. Incision and drainage was performed without complications and purulent material was drained and cleaned with saline irrigation. Cultures were sent off to pathology, antibiogram reviewed. Infectious Disease was also consulted for antibiotic selection upon discharge. Patient stated that prefers oral antibiotics over IV and only we will like to have IV if it is completely necessary. Today, patient was seen and examined at bedside, wound was examined which looks dry, clean, erythema has decreased considerably compared to previous to incision and drainage. Wounds looks to be healing properly and patient will be discharged home with cephalexin 500mg QID for 21 days per infectious disease recommendations. ROS Constitutional: Denies weight loss, fever and chills. HEENT: Denies changes in vision and hearing. Respiratory: Denies shortness of breath and cough Cardiovascular: Denies chest discomfort or palpitations GI: Denies abdominal pain, nausea, vomiting and diarrhea. : Denies dysuria and urinary frequency. Musculoskeletal: Denies myalgias and joint pain Skin: Denies rash and pruritus. Neurological: Denies dizziness, headache, vision or hearing problems Physical Examination General: Patient alert and oriented in person, place and time. Patient following commands. HEENT: Normocephalic, atraumatic, moist mucous membranes Respiratory/pulmonary: Clear lungs bilaterally, no associated crackles or wheezes. Cardiovascular: slightly tachycardic Normal heart sounds S1 and S2 with no associated murmurs Abdomen: Abdomen nondistended, there is no pain to palpation in any of the abdominal quadrants, no palpable masses. Extremities: Right lower extremity has clean gauze and bandage, status post incision and drainage. There are two small open wounds 2 cm below the kneecap that are not currently draining any material at this point. There is no erythema at this time. There is no peripheral edema present at the lower extremities. Peripheral Pulses: 3+ Radial (R). 3+ Radial (L). 3+ Dorsalis pedis (R). 3+ Dorsalis pedis(L) Skin: No rashes or pruritus, there is no sacral edema present at this time. Neurological: Intact cranial nerves with no focal neurologic deficits Consults/Reason for consult IF for abs coverage Ortho for I&D of the wound Operations or Procedures CHEST RADIOGRAPH Indication: weakness Technique: Single frontal view of the chest was obtained COMPARISON: CHEST XRAY 1 VIEW on DOS: 09/21/22, CXR1 on DOS: 09/21/22, CXRP on DOS: 09/18/22, CHEST PORTABLE on DOS: 09/18/22, CHEST PORTABLE on DOS: 09/17/22 FINDINGS: Lines and Tubes: None Lungs: Clear Pleura: No effusion. No pneumothorax. Cardiomediastinal contours: Unremarkable Bones: Unremarkable IMPRESSION: No acute disease. CLINICAL INDICATION: right powell infection TECHNIQUE: For XY R TIB FIB XRAY Comparison: None FINDINGS/IMPRESSION: : There is no evidence of acute fracture or dislocation. Diffuse subcutaneous soft-tissue edema and swelling. Clinical statement: Evaluate for right lower extremity cellulitis rule out absce Study: CT right hip right femur without contrast. Technique: Noncontrast axial CT of the performed with coronal and sagittal reformatted images. Ordering physician: IRVIN HUMPHREY Comparison: No recent cross-sectional imaging Findings: There is loss of muscle mass involving the gluteal muscles. There is subcutaneous fluid adjacent to the lateral aspect of the mid right femuroral muscles. IMPRESSION: 1. Severe cellulitis involving the subcutaneous soft tissue and lateral right femoral muscles Condition at Discharge: Stable Final Diagnosis/Problems List Sepsis secundary to acute right lower extremity cellulitis Acute right lower extremity cellulitis with purulent secretion Uncontrolled type 2 diabetes mellitus Mild hyponatremia Primary hypertension Obesity grade I Discharge Disposition: Home Discharge Instruct/Medications Diet: Regular Activity: No Restrictions, As Tolerated Follow Up/Referral: F/U with his PCP in 1 week F/U with ortho in 2 weeks Medications: Insulin mixed 70/30 35 units BID Cephalexin 500mg QID for 21 days cont. rest of home meds Discharge Statement: "Patient was advised to return to the ER or call 911 if any headaches, dizziness, shortness of breath, chest pain, abdominal pain, bleeding, fevers, or worsening of medical condition. Patient was counseled about treatment plan, medications, possible side effects, patientverbalized understanding. All questions were answered to the best of my ability. This discharge took greater then 30 minutes in planning, reviewing documentation, counseling the patient, and discussing with other team members." ASSESSMENT ASSESSMENT Assessment Infected right knee Date of Service: Mar 03, 2025 Billing Provider: OTIS SAWYER MD Common Visit Codes: 45899-GOA/OBS DISCH DAY >30min SHANICE GASPAR RESIDENT Mar 03, 2025 11:14 OTIS SAWYER MD Mar 04, 2025 20:46
[2025-03-03 13:00] VITALS: BP 109/75; PULSE 66; RESP 18; TEMP 98.1; O2SAT 99
[2025-03-03] MEDS ORDERED: INSU1INJ21 SC (13:06)
[2025-03-03] MEDS ORDERED: CEPH500C PO (13:06)
[2025-03-03] MEDS ORDERED: EMPA1TAB PO (14:27)
[2025-03-03 16:28] VITALS: BP 106/73; PULSE 66; RESP 18; TEMP 98.2
[2025-03-04] MEDS ORDERED: cefTRIAXone 2GM/50ML D5W 50 ML IV SCH (10:00)
== END 2025-03-03 16:50 | disposition home or self-care (01) | DRG 854 ==
LOC: ER 14:53 → OVERFLOW 22:44 → WEST WING 02-25 21:58
PROVIDERS: ADMIT Internal Medicine; ATTEND Internal Medicine
PROC: 0MBN0ZZ Excision of Right Knee Bursa and Ligament, Open Approach (ICD-10-PCS; principal; 2025-02-26 16:01)
DX: A41.9 Sepsis, unspecified organism (principal); E87.1 Hypo-osmolality and hyponatremia; L03.115 Cellulitis of right lower limb; I10 Essential (primary) hypertension; E11.9 Type 2 diabetes mellitus without complications; B95.61 Methicillin susceptible Staphylococcus aureus infection as the cause of diseases classified elsewhere; E11.65 Type 2 diabetes mellitus with hyperglycemia; E66.9 Obesity, unspecified; M60.9 Myositis, unspecified; M70.51 Other bursitis of knee, right knee; Z82.49 Family history of ischemic heart disease and other diseases of the circulatory system; Z83.3 Family history of diabetes mellitus; Z91.148 Patient's other noncompliance with medication regimen for other reason; Z90.49 Acquired absence of other specified parts of digestive tract; Z68.33 Body mass index [BMI] 33.0-33.9, adult; Z79.899 Other long term (current) drug therapy
CPT/HCPCS: 36415; 71045; 73590; 73700; 80048; 80053; 80202; 81001; 82962; 83036; 83605; 84484; 85007; 85025; 85027; 85652; 86141; 87040; 87070; 87075; 87077; 87186; 87205; 93005; 96365; 99291; G0378; J0692; J1100; J1815; J1885; J2003; J2405; J2543; J2704; J3490

== ENCOUNTER 2025-10-14 09:58 | Outpatient (CLI) | payer BC ==
[~2025-10-14 09:58] MED LIST changes: +CEPH500C PO; -DOXY-346 PO; +EMPA1TAB PO; -FLUC100T34 PO; +INSU1INJ21 SC; -INSUINJ37 SC; -LEVO250T58 PO; -TRAM50TA2 PO
[2025-10-14 11:00] LABS: Urine Protein, UAD TRACE (Negative)
[2025-10-14 11:03] LABS: Hematocrit 46.8 % (41.0-53.0); Hemoglobin 15.9 g/dL (13.5-17.5); Mean Corpuscular Hemoglobin 30.4 pg (28.0-32.0); Mean Corpuscular Volume 89.8 fL (80.0-100.0); Nucleated Red Blood Cells % 0.1 %
[2025-10-14 11:15] LABS: Alanine Aminotransferase 21 U/L (7-40); Albumin 4.2 g/dL (3.2-4.8); Alkaline Phosphatase 105 U/L (46-116); Anion Gap 10 (5-15); BUN/Creatinine Ratio 9.5 (10.0-20.0); Bilirubin, Total 0.6 mg/dL (0.2-1.0); Blood Urea Nitrogen 10 mg/dL (9-23); Calcium 9.4 mg/dL (8.7-10.4); Carbon Dioxide 27 mmol/L (20-31); Chloride 101 mmol/L (98-107); Cholesterol 172 mg/dL (< 200); Potassium 4.2 mmol/L (3.5-5.1); Sodium 138 mmol/L (136-145); Total Protein 7.3 g/dL (5.7-8.2)
[2025-10-14 11:16] LABS: Glucose 307 mg/dL (74-106); HDL Cholesterol 29 mg/dL (40-59); Triglycerides 187 mg/dL (< 150)
[2025-10-14 11:36] LABS: Free T4 (Free Thyroxine) 1.2 ng/dL (0.89-1.76)
[2025-10-14 11:37] LABS: Free T3 3.07 pg/mL (2.3-4.2)
== END 2025-10-14 17:00 | disposition home or self-care (01) ==
LOC: LAB 09:58
PROVIDERS: ATTEND Internal Medicine
DX: E78.5 Hyperlipidemia, unspecified (principal); E11.9 Type 2 diabetes mellitus without complications; E55.9 Vitamin D deficiency, unspecified
CPT/HCPCS: 36415; 80053; 80061; 81001; 82306; 84439; 84443; 84480; 84481; 85025